=== PATIENT | female | born 1980 | race Caucasian/White ===

== ENCOUNTER → 2020-03-28 13:55 | Outpatient (BNVA) | payer SELFPAY | PROVIDERS: Visit Provider Nurse Practitioner Family | DX: I10 Essential (primary) hypertension (principal); N92.0 Excessive and frequent menstruation with regular cycle; F17.200 Nicotine dependence, unspecified, uncomplicated; N94.6 Dysmenorrhea, unspecified; N92.1 Excessive and frequent menstruation with irregular cycle; J45.30 Mild persistent asthma, uncomplicated; L02.419 Cutaneous abscess of limb, unspecified | CPT/HCPCS: 80053; 80061; 84443; 85025 ==

== ENCOUNTER → 2020-04-01 08:31 | Outpatient (BNVA) | payer SELFPAY | PROVIDERS: Visit Provider Nurse Practitioner Family | DX: R73.09 Other abnormal glucose (principal) | CPT/HCPCS: 83036 ==

== ENCOUNTER → 2020-04-20 10:35 | Outpatient (BNVA) | payer SELFPAY | PROVIDERS: Visit Provider Obstetrics & Gynecology | DX: Z12.4 Encounter for screening for malignant neoplasm of cervix (principal); N93.9 Abnormal uterine and vaginal bleeding, unspecified | CPT/HCPCS: 84443; 85025; 88175 ==

== ENCOUNTER → 2020-05-06 15:51 | Outpatient (BNVA) | payer SELFPAY | PROVIDERS: Visit Provider Obstetrics & Gynecology | DX: N93.9 Abnormal uterine and vaginal bleeding, unspecified (principal); N85.2 Hypertrophy of uterus | CPT/HCPCS: 76830 ==

== ENCOUNTER → 2020-05-11 09:09 | Outpatient (BNVA) | payer SELFPAY | PROVIDERS: Visit Provider Nurse Practitioner Family | DX: M25.511 Pain in right shoulder (principal); R10.9 Unspecified abdominal pain; G89.29 Other chronic pain | CPT/HCPCS: 73030; 80053; 81000; 85025 ==

== ENCOUNTER → 2020-05-12 13:37 | Outpatient (BNVA) | payer SELFPAY | PROVIDERS: Visit Provider Nurse Practitioner Family | DX: R10.813 Right lower quadrant abdominal tenderness (principal) | CPT/HCPCS: 74018 ==

== ENCOUNTER 2020-05-12 15:48 | Outpatient (CLI) | payer SELFPAY ==
--- NOTE | 2020-05-12 15:00 | CT_ITS ---
WS: [id number] CT scan of the abdomen and pelvis with IV contrast. Additional two-dimensional coronal and sagittal r econstruction was performed. 05/12/2020 Clinical Data: right sided abdominal pain, RLQ tenderness Comparison: CT abdomen and pelvis, 06/18/2019. DLP: 1521.[address] scans at [facility] use at least one of these dose optimization techniques: automat ed exposure control; mA and/or kV adjustment per patient size (includes targeted exams where dose is matched to clinical indication); or iterative reconstruction. Findings: The lower lungs show no nodules, masses or effusions. The liver, spleen, adrenal glands and pancreas are normal. There are clips in the gallbladder fossa from a cholecystectomy. The kidneys show equal bilateral contrast excretion with no cyst or masses. No hydronephrosis or mary l calculi are seen. The abdominal aorta is normal in size. No appendicitis or diverticulitis is seen. No abscess, adenopathy, ascites, mass, obstruction or free air is seen. The bladder is unremarkable. No inguinal hernia is seen. The uterus is normal. The bones of the lower thorax, lumbar spine, pelvis, and hips are normal. CT/CT abdomen pelvis w con* [id number] Impression: 1. Negative for acute intra-abdominal or pelvic abnormalities. 2. Cholecystectomy.
[2020-05-12] MEDS: iohexol 300 mg/mL 100 mL Btl IV (16:24)
== END 2020-05-12 15:49 | disposition home or self-care (01) ==
LOC: RAD 15:52
PROVIDERS: PCP Nurse Practitioner Family; Visit Provider Nurse Practitioner Family
DX: R10.9 Unspecified abdominal pain (principal); R10.813 Right lower quadrant abdominal tenderness; D72.829 Elevated white blood cell count, unspecified
CPT/HCPCS: 74177; 85025

== ENCOUNTER 2020-06-02 07:17 | Outpatient (CLI) | payer SELFPAY ==
--- NOTE | 2020-06-02 07:22 | US_ITS ---
WS: [id number] Pelvic ultrasound, 06/02/2020 Clinical Data: Verify position of IUD Comparison: Pelvic ultrasound, 05/06/2020. Findings: The uterus measures 10.71 cm x 6.3 cm x 5.0 cm. The IUD is within the endometrium. The cervical length is cm. The left ovary measures 3.1 cm x 3.2 cm x 1.7 cm with follicular cysts. The right ovary measures 4.4 cm x 3.1 cm x 2.1 cm with follicular cysts. There is no fluid within the cul-de-sac. US/US transvaginal [id number] Impression: The IUD is within the endometrium.
== END 2020-06-02 07:18 | disposition home or self-care (01) ==
LOC: RAD 07:19
PROVIDERS: PCP Nurse Practitioner Family; Visit Provider Obstetrics & Gynecology
DX: Z30.431 Encounter for routine checking of intrauterine contraceptive device (principal)
CPT/HCPCS: 76830

== ENCOUNTER 2020-06-03 11:12 | Outpatient (CLI) | payer SELFPAY ==
--- NOTE | 2020-06-03 12:00 | MM_ITS ---
WS: [id number] BILATERAL DIGITAL SCREENING MAMMOGRAPHY WITH CAD CLINICAL INFORMATION: BI breast lump HISTORY: Screening mammogram. No current complaints. COMPARISON: TECHNIQUE: Bilateral CC and MLO views. FINDINGS: Palpable marker upper outer right breast. No underlying mammographic abnormalities. Ultraso und is pending. The breasts are composed of heterogeneous fibroglandular density tissue, which can limit the detectio n of small underlying mass lesions. Left breast appears unchanged from 2016. ULTRASOUND BREAST BILATERAL TECHNIQUE: Ultrasound bilateral breast focused area of concern. CLINICAL INFORMATION: BI breast lump COMPARISON: None. FINDINGS: Ultrasound right breast at the palpable marker. No evidence of pathologic mass or lesion. No cystic o r solid lesions. Ultrasound left breast at the 3,6,9, and 12:00 positions. Normal underlying soft tissue. Simple appea ring cyst at the 9:00 position measuring 5 mm. No evidence of pathologic mass or lesion. No lesions t o target for biopsy. Recommend return to annual screening mammography. MM/[place] [id number] IMPRESSION: BI-RADS: 2-Benign FOLLOW UP: 1 Year Follow-up Recommend return to annual screening mammography.
--- NOTE | 2020-06-03 12:45 | US_ITS ---
WS: [id number] BILATERAL DIGITAL SCREENING MAMMOGRAPHY WITH CAD CLINICAL INFORMATION: BI breast lump HISTORY: Screening mammogram. No current complaints. COMPARISON: TECHNIQUE: Bilateral CC and MLO views. FINDINGS: Palpable marker upper outer right breast. No underlying mammographic abnormalities. Ultraso und is pending. The breasts are composed of heterogeneous fibroglandular density tissue, which can limit the detectio n of small underlying mass lesions. Left breast appears unchanged from 2016. ULTRASOUND BREAST BILATERAL TECHNIQUE: Ultrasound bilateral breast focused area of concern. CLINICAL INFORMATION: BI breast lump COMPARISON: None. FINDINGS: Ultrasound right breast at the palpable marker. No evidence of pathologic mass or lesion. No cystic o r solid lesions. Ultrasound left breast at the 3,6,9, and 12:00 positions. Normal underlying soft tissue. Simple appea ring cyst at the 9:00 position measuring 5 mm. No evidence of pathologic mass or lesion. No lesions t o target for biopsy. Recommend return to annual screening mammography. US/US breast BI complete [id number] IMPRESSION: BI-RADS: 2-Benign FOLLOW UP: 1 Year Follow-up Recommend return to annual screening mammography.
== END 2020-06-03 11:13 | disposition home or self-care (01) ==
LOC: RADSHAW 11:14
PROVIDERS: PCP Nurse Practitioner Family; Visit Provider Nurse Practitioner Family
DX: N63.11 Unspecified lump in the right breast, upper outer quadrant (principal); N63.25 Unspecified lump in the left breast, overlapping quadrants
CPT/HCPCS: 76641; 77066

== ENCOUNTER → 2020-06-24 11:24 | Outpatient (BNVA) | payer OTHER, SELFPAY | PROVIDERS: PCP Nurse Practitioner Family; Visit Provider Nurse Practitioner Family | DX: Z11.59 Encounter for screening for other viral diseases (principal); J45.30 Mild persistent asthma, uncomplicated | CPT/HCPCS: 87635 ==

== ENCOUNTER 2020-07-10 13:58 | Emergency (ER) | payer SELFPAY ==
[2020-07-10] VITALS (8 sets, daily range): BP systolic 113–158; BP diastolic 78–85; PULSE 90–106; RESP 16–22; TEMP 36.8; O2SAT 93–96; BMI 41.1
[2020-07-10] MEDS: ipratropium-albuterol 3 mL Neb INHALATION ×2 (14:43→17:12)
--- NOTE | 2020-07-10 15:12 | ED_ITS ---
HPI - Asthma General: Chief Complaint: Asthma Stated Complaint: ASTHMA EXACERBATION Time Seen by Provider: 07/10/20 14:20 History of Present Illness: HPI Narrative: This patient is a 39-year-old female who presents with asthma. She has a history of asthma and it became worse this morning. She has been using her inhalers at home without relief. She comes into the ER because of shortness of breath. She denies fever. She has had some cough. She told me that she had a Covid test a couple of weeks ago for work. She told me that she had not had the exposure but when I reviewed the records she did have an exposure to a coworker who tested positive. That exposure was over 3 weeks ago. complaint: asthma attack , shortness of breath and wheezing Onset (ago): hour(s) (6) Severity: severe Context: none known Associated symptoms: Reports no associated symptoms and non-productive cough; Deny chest pain, fever(s) or productive cough Treatments Prior to Arrival: inhaled steroid Review of Systems General: Reports: 10 or more systems reviewed and unremarkable except in HPI and below Const: Denies: fever(s), chills, fatigue or malaise Eyes: Denies: change in vision ENMT: Denies: odynophagia Card: Denies: chest pain or swelling of feet/ankles Resp: Reports: dyspnea, non-productive cough and wheezing; Denies: productive cough GI: Denies: abdominal pain, nausea or vomiting : Denies: flank pain or difficulty voiding Musc: Denies: neck pain or back pain Skin/Breast: Denies: rash Neuro: Denies: headache(s), numbness in extremities or weakness in extremities [place]/Lymph: Denies: easy bruising or easy bleeding PFSH ED PFSH: Medical History Essential hypertension Diagnosed in February 2020 being managed by PMD. 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 PCP: KELLY Cueto Surgical History Status post cholecystectomy 1999--laparoscopic procedure Status post tubal ligation 2007--laparoscopic procedure Family History Grandmother Breast cancer maternal, age at diagnosis unknown Denies family history of Colon cancer Ovarian cancer Diabetes Heart disease Hyperlipidemia Anesthesia complication Bleeding disorder Hypertension Uterine cancer Thyroid condition Stroke Social History Smoking and tobacco status: current every day smoker cigarettes Packs smoked per day: 0.5 Alcohol intake: never Lives independently: Yes Housing: House Marital status: Single Current occupational status: employed History of recent travel: No Physical Exam Const: COMMON NORMALS: patient oriented x3, no limitations and alert GENERAL APPEARANCE: cooperative HENMT: HEAD & SCALP: normal to inspection FACE & SINUS: normal facial exam Eye: GENERAL EYE: appearance normal, both eyes and all related structures Neck/C-Spine: COMMON NORMALS: supple, no meningeal signs and no JVD Chest: COMMONS NORMALS: normal inspection of the chest Resp: EFFORT & INSPECTION: Yes tachypneic, Yes labored and Yes uses accessory muscles AUSCULTATION: wheezes Cardio: COMMON NORMALS: no JVD, regular rate, regular rhythm and No murmurs present (Cardio) RATE: regular rate RHYTHM: regular rhythm GI: COMMON NORMALS: Normal to inspection, nondistended, normoactive bowel so unds present, Soft to palpation and non-tender INSPECTION: Yes normal to inspection AUSCULTATION: Yes normoactive bowel sounds PALPATION: Yes Soft to palpation Back/Pelvis: COMMON NORMALS: thoracic and lumbar spine normal to inspection Extremity: COMMON NORMALS: normal to inspection Neuro: COMMON NORMALS: patient oriented x3, moves all extremities, no focal motor deficits and no sensory deficits noted SENSORIUM/ORIENTATION: Yes alert MENINGEAL SIGNS: Yes no meningeal signs Psych: COMMON NORMALS: mental status grossly normal, cooperative and normal affect Skin: COMMON NORMALS: no rashes or lesions noted and turgor normal GENERAL SKIN EXAM: no rashes or lesions noted and turgor normal Course ED course: Patient improved with nebulizers. She had been on steroids and I put her back on some steroids. I do not think she necessarily needs another Covid test at this point. Nothing about her presentation really sound like Covid and she just had a negative test. She denied any recent exposures. Vital Signs: Vital signs: Vital Signs Temperature 98.2 F 07/10/20 14:11 Pulse Rate 101 H 07/10/20 18:10 Respiratory Rate 18 07/10/20 18:10 Blood Pressure 134/78 07/10/20 18:10 Pulse Oximetry 95 07/10/20 18:10 MDM - Asthma Lab Data: Labs: Lab Results 07/10/20 07/10/20 Range/Units 14:30 14:30 WBC 12.4 H (4.0-10.0) 10^3/ uL RBC 4.61 (4.1-5.3) 10^6/u L Hgb 13.2 (11.5-15.3) g/dL Hct 40.0 (37.0-47.0) % MCV 86.8 (81-99) fL MCH 28.6 (28.0-34.0) pg MCHC 33.0 (30.0-36.0) g/dL RDW 14.7 (12.1-15.1) % Plt Count 227 (130-400) 10^3/c mm MPV 11.6 H (7.4-10.4) fL Neut % (Auto) 72.2 % Lymph % (Auto) 17.2 % [place] % (Auto) 6.9 % Eos % (Auto) 2.8 % Baso % (Auto) 0.4 % Neut # (Auto) 8.94 H (1.8-7.7) 10^3/u L Lymph # (Auto) 2.1 (0.8-4.8) 10^3/u L [place] # (Auto) 0.9 (0.2-0.9) 10^3/u L Eos # (Auto) 0.3 (0.0-0.8) 10^3/u L Baso # (Auto) 0.1 (0.0-0.1) 10^3/u L Nucleated RBC % (a uto) 0 % Nucleated RBCs # 0.0 /100WBC Sodium 138 (136-145) mmol/L Potassium 3.8 (3.5-5.1) mmol/L Chloride 104 (98-107) mmol/L Carbon Dioxide 23 (22-29) mmol/L Anion Gap 14.8 (5-19) BUN 6 (6-20) mg/dL Creatinine 0.6 (0.5-0.9) mg/dL GFR Calculation 111.3 (90-130) mL/min Glucose 111 (65-115) mg/dL Calculated Osmolal ity 284 L (285-295) mOsm/k g Calcium 9.0 (8.5-10.5) mg/dL Total Bilirubin 0.3 (0.15-1.2) mg/dL AST 25 (0-32) U/L ALT 36 H (0-33) U/L Alkaline Phosphata se 84 (35-105) IU/L Total Protein 7.5 (6.6-8.7) g/dL Albumin 4.0 (3.5-5.2) g/dL Globulin 3.5 (1.3-4.6) g/dL Discharge Plan Discharge Patient Disposition: Home Clinical Impression: Asthma with acute exacerbation Qualifiers: Asthma severity: moderate Asthma persistence: persistent Qualified Code(s): J45.41 - Moderate persistent asthma with (acute) exacerbation Condition: Stable Prescriptions: New ipratropium bromide 0.02 % solution 2.5 ml INHALATION Q4H PRN (Reason: shortness of breath or wheezing) Qty: 62.5 RF: 0 prednisone 10 mg tablet See Rx Instructions .ROUTE .COMPLEX Qty: 35 RF: 0 No Action Mirena 20 mcg/24 hours (5 yrs) 52 mg intrauterine device 1 device INTRAUTERI .every 5 years Qty: 1 RF: 0 albuterol sulfate 2.5 mg /3 mL (0.083 %) solution for nebulization 2.5 mg INHALATION Q4H PRN (Reason: shortness of breath or wheezing) 30 Days Qty: 180 RF: 11 albuterol sulfate [ProAir HFA] 90 mcg/actuation HFA aerosol inhaler 2 puff INHALATION QID PRN (Reason: shortness of breath or wheezing) 30 Days Qty: 6.7 RF: 11 fluticasone propion-salmeterol [Advair Diskus] 250-50 mcg/dose blister with device 1 inh INHALATION BID 30 Days Qty: 60 RF: 11 lisinopril 10 mg tablet 10 mg PO DAILY 30 Days Qty: 30 RF: 5 doxycycline hyclate 100 mg capsule 100 mg PO BID 7 Days Qty: 14 RF: 0 ibuprofen 200 mg Tablet 600 mg PO PRN RF: 0 Vitamin C 1 tab PO DAILY RF: 0 Discharge Orders: Discharge Order (Routine); Ordered 07/10/20 Ordered By: Ivelisse Bynum Referrals: Cori Brooke FNP-C [Primary Care Provider] - Discharge Diet: Usual diet Discharge Activity: Resume usual activity Patient Instructions: Moderate and Severe Persistent Asthma (ED) Activity Restrictions/Additional Instructions: Return to the emergency department if worsening shortness of breath, worsening c hest pain, fever. Take the medications as prescribed as well as your normal medications. Follow-up with your primary care provider in about a week to let them know how you are doing. 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
--- NOTE | 2020-07-10 15:19 | XRR_ITS ---
PROCEDURE INFORMATION: Exam: XR Chest, 1 View Exam date and time: 07/10/2020 3:20 PM Age: 39 years old Clinical indication: Wheezing TECHNIQUE: Imaging protocol: XR of the chest Views: 1 view. COMPARISON: CR Chest 2 views* [id number] 10/19/2018 5:20 PM FINDINGS: Lungs: Unremarkable. No consolidation. Pleural space: Unremarkable. No pleural effusion. No pneumothorax. Heart/Mediastinum: Unremarkable. No cardiomegaly. Bones/joints: Unremarkable. XR/XR chest 1V portable [id number] IMPRESSION: No acute findings.
[2020-07-10 15:46] LABS: Basophils # 0.1 10^3/uL (0.0-0.1); Basophils % 0.4 %; Eosinophils # 0.3 10^3/uL (0.0-0.8); Eosinophils % 2.8 %; Hemoglobin 13.2 g/dL (11.5-15.3); Lymphocytes # 2.1 10^3/uL (0.8-4.8); Lymphocytes % 17.2 %; Mean Corpuscular Hemoglobin 28.6 pg (28.0-34.0); Mean Corpuscular Volume 86.8 fL (81-99); Mean Platelet Volume 11.6 fL (7.4-10.4); Monocytes # 0.9 10^3/uL (0.2-0.9); Monocytes % 6.9 %; Neutrophils # 8.94 10^3/uL (1.8-7.7); Neutrophils % 72.2 %; Nucleated Red Blood Cells % 0 %; Platelet Count 227 10^3/cmm (130-400); Red Blood Count 4.61 10^6/uL (4.1-5.3); Red Cell Distribution Width 14.7 % (12.1-15.1); White Blood Count 12.4 10^3/uL (4.0-10.0)
[2020-07-10 16:02] LABS: Alanine Aminotransferase 36 U/L (0-33); Alkaline Phosphatase 84 IU/L (35-105); Anion Gap 14.8 (5-19); Aspartate Amino Transferase 25 U/L (0-32); Blood Urea Nitrogen 6 mg/dL (6-20); Carbon Dioxide 23 mmol/L (22-29); Chloride 104 mmol/L (98-107); Creatinine Clr Calc Pharmacy 151.7574; Globulin 3.5 g/dL (1.3-4.6); Glomerular Filtration Rate 111.3 mL/min (90-130); Glucose 111 mg/dL (65-115); Osmolality Calculated 284 mOsm/kg (285-295); Potassium 3.8 mmol/L (3.5-5.1); Sodium 138 mmol/L (136-145); Total Bilirubin 0.3 mg/dL (0.15-1.2); Total Protein 7.5 g/dL (6.6-8.7)
--- NOTE | 2020-07-10 16:20 | ECG_ITS ---
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
[2020-07-10] MEDS: ketorolac 30 mg/mL INJ 15 MG IVP (16:39)
[2020-07-10] MEDS: predniSONE 20 mg Tablet 60 MG PO (18:17)
== END 2020-07-10 18:18 | disposition home or self-care (01) ==
PROVIDERS: Emergency Provider Emergency Medicine; PCP Nurse Practitioner Family
DX: J45.41 Moderate persistent asthma with (acute) exacerbation (principal); I10 Essential (primary) hypertension; F17.210 Nicotine dependence, cigarettes, uncomplicated
CPT/HCPCS: 12345; 71045; 80053; 85025; 93005; 94640; 96374; 96375; 99283; 99284; J1885; J2930; J7512

== ENCOUNTER 2020-07-13 10:08 | Emergency (ER) | payer SELFPAY ==
[2020-07-13 10:10] VITALS: BP 158/97; PULSE 85; RESP 18; TEMP 36.8; O2SAT 95; BMI 41.0
[2020-07-13 10:31] VITALS: O2SAT 95
--- NOTE | 2020-07-13 10:33 | XR_ITS ---
WS: [id number] XR chest 1V portable [id number] REASON FOR EXAM: SOB, cough, COVID r/o FINDINGS: Compared to the previous examination of 07/10/2020, there are patchy lung opacities in both lung base s not present on the previous study. These abnormalities likely represent a combination of atelectasi s and acute pneumonitis. No other significant interval change noted. XR/XR chest 1V portable [id number] IMPRESSION: Interval lung base changes as described above which could indicate acute pneumo nitis.
--- NOTE | 2020-07-13 10:33 | W.ED.SOB ---
HPI - SOB/Dyspnea General: Chief Complaint: Shortness of Breath/Dyspnea Stated Complaint: BODY ACHES,COUGH,HIGH BP,NOSE BLEEDS Time Seen by Provider: 07/13/20 10:17 History of Present Illness: HPI Narrative: This patient is a 39-year-old female who presents today with multiple complaints. She complains of shortness of breath, chest tightness, blood pressure that goes up and down, nosebleeds and body aches. She denies fever. She denies exposure to Covid. She had a negative Covid test on June 24 after exposure at work. She was seen in the ED on July 10 with shortness of breath and an asthma attack. She was at that time denying fever or Covid exposures. She had been treated as an outpatient with prednisone. She had been on a taper which she finished a few days before coming in. She was using albuterol and Advair at home. She was given another taper of prednisone, ipratropium for her nebulizer. Labs and x-ray on that visit were normal. Today she is complaining of the same shortness of breath. She also has body aches but no fever. She has had couple episodes of nosebleeds and says that her blood pressure and headaches come with a nosebleed. She is able to stop it easily at home. She continues to smoke. She is also complaining of swelling in her hands and legs. MD elicited complaint: shortness of breath and cough Pertinent past history: COPD and asthma Onset (ago): week(s) Timing: constant Severity: moderate Exacerbating factors: lying flat (She says that sometimes at night her pulse ox will get down to 85%. It gets better after treatment in sitting up. During the day it is mostly 95 to 97%) Known history of: COPD and asthma Associated symptoms: Reports orthopnea; Deny abdominal pain, chest pain, fever(s), nausea or vomiting Review of Systems General: Reports: 10 or more systems reviewed and unremarkable except in HPI and below Const: Denies: fever(s), chills, fatigue or malaise Eyes: Denies: change in vision ENMT: Denies: odynophagia Card: Reports: swelling of feet/ankles and orthopnea; Denies: chest pain Resp: Reports: dyspnea, non-productive cough and wheezing; Denies: productive cough GI: Denies: abdominal pain, nausea or vomiting : Denies: flank pain or difficulty voiding Musc: Denies: neck pain or back pain Skin/Breast: Denies: rash Neuro: Denies: headache(s), numbness in extremities or weakness in extremities Farhat/Lymph: Denies: easy bruising or easy bleeding PFS ED PFSH: Medical History Essential hypertension Diagnosed in February 2020 being managed by PMD. 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 PCP: KELLY Cueto Surgical History Status post cholecystectomy 1999--laparoscopic procedure Status post tubal ligation 2007--laparoscopic procedure Family History Grandmother Breast cancer maternal, age at diagnosis unknown Denies family history of Colon cancer Ovarian cancer Diabetes Heart disease Hyperlipidemia Anesthesia complication Bleeding disorder Hypertension Uterine cancer Thyroid condition Stroke Social History Smoking and tobacco status: current every day smoker cigarettes Packs smoked per day: 0.5 Alcohol intake: never Lives independently: Yes Housing: House Marital status: Single Current occupational status: employed History of recent travel: No Physical Exam Const: COMMON NORMALS: no acute distress, patient oriented x3, no limitations and alert GENERAL APPEARANCE: cooperative and comfortable HENMT: HEAD & SCALP: normal to inspection FACE & SINUS: normal facial exam Eye: GENERAL EYE: appearance normal, both eyes and all related structures Neck/C-Spine: COMMON NORMALS: supple, no meningeal signs and no JVD Chest: COMMONS NORMALS: normal inspection of the chest Resp: COMMON NORMALS: normal respiratory effort and No use of accessory muscles AUSCULTATION: wheezes (Moderate bilateral) Cardio: COMMON NORMALS: no JVD, regular rate, regular rhythm and No murmurs present (Cardio) RATE: regular rate RHYTHM: regular rhythm GI: COMMON NORMALS: Normal to inspection, nondistended, normoactive bowel sounds present, Soft to palpation and non-tender INSPECTION: Yes normal to inspection AUSCULTATION: Yes normoactive bowel sounds PALPATION: Yes Soft to palpation Back/Pelvis: COMMON NORMALS: thoracic and lumbar spine normal to inspection Extremity: COMMON NORMALS: normal to inspection Neuro: COMMON NORMALS: patient oriented x3, moves all extremities, no focal motor deficits and no sensory deficits noted SENSORIUM/ORIENTATION: Yes alert MENINGEAL SIGNS: Yes no meningeal signs Psych: COMMON NORMALS: mental status grossly normal, cooperative and normal affect Skin: COMMON NORMALS: no rashes or lesions noted and turgor normal GENERAL SKIN EXAM: no rashes or lesions noted and turgor normal Course ED course: This patient presents for reevaluation of shortness of breath. She was seen a few days ago with the same symptoms. She was treated for an asthma exacerbation. She had been on prednisone was put back on another taper of prednisone. One of her complaints today is swelling which is most likely related to that. She also has multiple other complaints including nosebleeds and she seems quite anxious about her blood pressure. Work-up today revealed no new significant findings. Initially on her chest x-ray I thought it looked like she had a developing infiltrate so CT was ordered. The CT failed to demonstrate that. Covid test was negative today. She initially had some wheezing throughout but this improved with magnesium. At the time of discharge her lungs were clear with no wheezing. She has inhalers and nebulizers at home. I suggested that she continue the prednisone. I encouraged her to follow-up with her primary care doctor. Vital Signs: Vital signs: Vital Signs Temperature 98.2 F 07/13/20 10:10 Pulse Rate 82 07/13/20 15:32 Respiratory Rate 16 07/13/20 15:32 Blood Pressure 131/71 07/13/20 15:32 Pulse Oximetry 92 07/13/20 15:32 MDM - SOB/Dyspnea Lab Data: Labs: Lab Results 07/13/20 07/13/20 07/13/20 Range/Units 11:22 11:22 11: WBC 16.1 H (4.0-10.0) 10^3/ uL RBC 4.56 (4.1-5.3) 10^6/u L Hgb 12.9 (11.5-15.3) g/dL Hct 39.6 (37.0-47.0) % MCV 86.8 (81-99) fL MCH 28.3 (28.0-34.0) pg MCHC 32.6 (30.0-36.0) g/dL RDW 15.3 H (12.1-15.1) % Plt Count 256 (130-400) 10^3/c mm MPV 10.9 H (7.4-10.4) fL Neut % (Auto) 83.0 % Lymph % (Auto) 12.8 % Benzie % (Auto) 2.9 % Eos % (Auto) 0.3 % Baso % (Auto) 0.2 % Neut # (Auto) 13.32 H (1.8-7.7) 10^3/u L Lymph # (Auto) 2.1 (0.8-4.8) 10^3/u L Benzie # (Auto) 0.5 (0.2-0.9) 10^3/u L Eos # (Auto) 0.1 (0.0-0.8) 10^3/u L Baso # (Auto) 0.0 (0.0-0.1) 10^3/u L Nucleated RBC % (a uto) 0 % Nucleated RBCs # 0.0 /100WBC D-Dimer 0.82 H (0-0.59) ug/mIFE U Sodium 139 (136-145) mmol/L Potassium 4.0 (3.5-5.1) mmol/L Chloride 106 (98-107) mmol/L Carbon Dioxide 22 (22-29) mmol/L Anion Gap 15.0 (5-19) BUN 7 (6-20) mg/dL Creatinine 0.9 (0.5-0.9) mg/dL GFR Calculation 69.7 L (90-130) mL/min Glucose 116 H (65-115) mg/dL Calculated Osmolal ity 287 (285-295) mOsm/k g Lactic Acid (0.5-2.2) mmol/L Calcium 9.0 (8.5-10.5) mg/dL Total Bilirubin 0.2 (0.15-1.2) mg/dL AST 34 H (0-32) U/L ALT 45 H (0-33) U/L Alkaline Phosphata se 91 (35-105) IU/L NT-Pro-B Natriuret Pep 168 H (0-125) pg/mL Total Protein 7.2 (6.6-8.7) g/dL Albumin 4.0 (3.5-5.2) g/dL Globulin 3.2 (1.3-4.6) g/dL Procalcitonin 0.04 (0-0.5) ng/mL Influenza Type A A g (Negative) Influenza Type B A g (Negative) SARS-CoV-2 Ag (Rap id) (Negative) 07/13/20 07/13/20 07/13/20 Range/Units 11:22 11:24 11:24 WBC (4.0-10.0) 10^3/ uL RBC (4.1-5.3) 10^6/u L Hgb (11.5-15.3) g/dL Hct (37.0-47.0) % MCV (81-99) fL MCH (28.0-34.0) pg MCHC (30.0-36.0) g/dL RDW (12.1-15.1) % Plt Count (130-400) 10^3/c mm MPV (7.4-10.4) fL Neut % (Auto) % Lymph % (Auto) % Benzie % (Auto) % Eos % (Auto) % Baso % (Auto) % Neut # (Auto) (1.8-7.7) 10^3/u L Lymph # (Auto) (0.8-4.8) 10^3/u L Benzie # (Auto) (0.2-0.9) 10^3/u L Eos # (Auto) (0.0-0.8) 10^3/u L Baso # (Auto) (0.0-0.1) 10^3/u L Nucleated RBC % (a uto) % Nucleated RBCs # /100WBC D-Dimer (0-0.59) ug/mIFE U Sodium (136-145) mmol/L Potassium (3.5-5.1) mmol/L Chloride (98-107) mmol/L Carbon Dioxide (22-29) mmol/L Anion Gap (5-19) BUN (6-20) mg/dL Creatinine (0.5-0.9) mg/dL GFR Calculation (90-130) mL/min Glucose (65-115) mg/dL Calculated Osmolal ity (285-295) mOsm/k g Lactic Acid 2.1 (0.5-2.2) mmol/L Calcium (8.5-10.5) mg/dL Total Bilirubin (0.15-1.2) mg/dL AST (0-32) U/L ALT (0-33) U/L Alkaline Phosphata se (35-105) IU/L NT-Pro-B Natriuret Pep (0-125) pg/mL Total Protein (6.6-8.7) g/dL Albumin (3.5-5.2) g/dL Globulin (1.3-4.6) g/dL Procalcitonin (0-0.5) ng/mL Influenza Type A A g Negative (Negative) Influenza Type B A g Negative (Negative) SARS-CoV-2 Ag (Rap id) Negative (Negative) Discharge Plan Discharge Patient Disposition: Home Clinical Impression: Bronchitis Mild persistent asthma Qualifiers: Asthma complication type: unspecified Qualified Code(s): J45.30 - Mild persistent asthma, uncomplicated Condition: Stable Prescriptions: New doxycycline hyclate 100 mg capsule 100 mg PO BID 7 Days Qty: 14 RF: 0 No Action Mirena 20 mcg/24 hours (5 yrs) 52 mg intrauterine device 1 device INTRAUTERI .every 5 years Qty: 1 RF: 0 albuterol sulfate 2.5 mg /3 mL (0.083 %) solution for nebulization 2.5 mg INHALATION Q4H PRN (Reason: shortness of breath or wheezing) 30 Days Qty: 180 RF: 11 albuterol sulfate [ProAir HFA] 90 mcg/actuation HFA aerosol inhaler 2 puff INHALATION QID PRN (Reason: shortness of breath or wheezing) 30 Days Qty: 6.7 RF: 11 fluticasone propion-salmeterol [Advair Diskus] 250-50 mcg/dose blister with device 1 inh INHALATION BID 30 Days Qty: 60 RF: 11 lisinopril 10 mg tablet 10 mg PO DAILY 30 Days Qty: 30 RF: 5 ibuprofen 200 mg Tablet 600 mg PO PRN RF: 0 Vitamin C 1 tab PO DAILY RF: 0 ipratropium bromide 0.02 % solution 2.5 ml INHALATION Q4H PRN (Reason: shortness of breath or wheezing) Qty: 62.5 RF: 0 prednisone 10 mg tablet See Rx Instructions .ROUTE .COMPLEX Qty: 35 RF: 0 Discharge Orders: Discharge Order (Routine); Ordered 07/13/20 Ordered By: Ivelisse Bynum Referrals: Cori Brooke FNP-C [Primary Care Provider] - Discharge Diet: Advance as tolerated Discharge Activity: Resume usual activity Patient Instructions: Acute Bronchitis (ED) Activity Restrictions/Additional Instructions: Continue to use your inhalers at home. Continue the prednisone and just be aware that it may cause some swelling. Make sure to carefully limit your salt intake while on the prednisone as this can make the swelling worse. Take the antibiotic as prescribed. Follow-up with your regular doctor for checkup within the next week. Return to the ER if worsening. Discharge Date/Time: 07/13/20 15:34 Coding Level of Care Code ED Automation Application Engineer for Machelle Larios Exam Comprehensive
[2020-07-13 11:32] VITALS: BP 151/69; PULSE 86; O2SAT 93
[2020-07-13 11:40] LABS: Basophils % 0.2 %; Eosinophils # 0.1 10^3/uL (0.0-0.8); Eosinophils % 0.3 %; Hematocrit 39.6 % (37.0-47.0); Hemoglobin 12.9 g/dL (11.5-15.3); Lymphocytes # 2.1 10^3/uL (0.8-4.8); Lymphocytes % 12.8 %; Mean Corpuscular HGB Conc 32.6 g/dL (30.0-36.0); Mean Corpuscular Hemoglobin 28.3 pg (28.0-34.0); Mean Corpuscular Volume 86.8 fL (81-99); Mean Platelet Volume 10.9 fL (7.4-10.4); Monocytes # 0.5 10^3/uL (0.2-0.9); Monocytes % 2.9 %; Neutrophils # 13.32 10^3/uL (1.8-7.7); Nucleated Red Blood Cells % 0 %; Platelet Count 256 10^3/cmm (130-400); Red Blood Count 4.56 10^6/uL (4.1-5.3); Red Cell Distribution Width 15.3 % (12.1-15.1); White Blood Count 16.1 10^3/uL (4.0-10.0)
[2020-07-13] MEDS: cefTRIAXone 1,000 MG in sodium chloride 0.9% (plus) 50 ML 100 MG IV (12:00)
[2020-07-13 12:01] LABS: D Dimer 0.82 ug/mIFEU (0-0.59); Lactic Sepsis W/Reflex 2.1 mmol/L (0.5-2.2)
[2020-07-13 12:11] LABS: Alanine Aminotransferase 45 U/L (0-33); Alkaline Phosphatase 91 IU/L (35-105); Aspartate Amino Transferase 34 U/L (0-32); Blood Urea Nitrogen 7 mg/dL (6-20); Carbon Dioxide 22 mmol/L (22-29); Chloride 106 mmol/L (98-107); Globulin 3.2 g/dL (1.3-4.6); Glomerular Filtration Rate 69.7 mL/min (90-130); Glucose 116 mg/dL (65-115); NT Pro B Type Natriuretic Pept 168 pg/mL (0-125); Osmolality Calculated 287 mOsm/kg (285-295); Sodium 139 mmol/L (136-145); Total Bilirubin 0.2 mg/dL (0.15-1.2); Total Protein 7.2 g/dL (6.6-8.7)
[2020-07-13] MEDS: azithromycin 500 MG in sodium chloride 0.9% 250 ML 250 MG IV (12:20)
[2020-07-13 12:22] LABS: Influenza A by IFA Negative (Negative); Influenza B by IFA Negative (Negative); SARS Covid-2 Antigen Negative (Negative)
--- NOTE | 2020-07-13 12:44 | CT_ITS ---
WS: [id number] CTA OF THE CHEST WITH PULMONARY EMBOLISM PROTOCOL TECHNIQUE: High-resolution contrast enhanced CTA of the chest with coronal and sagittal reformatted i mages with pulmonary embolism protocol. MIP images are also reviewed. CLINICAL INFORMATION: dyspnea COMPARISON: CTA chest 09/2017 DLP: 1798.[address] scans at [facility] use at least one of these dose optimization techniques: automat ed exposure control; mA and/or kV adjustment per patient size (includes targeted exams where dose is matched to clinical indication); or iterative reconstruction. FINDINGS: Proximal main pulmonary arteries are normal. Segmental and subsegmental pulmonary arteries are normal . No evidence of pulmonary embolus. Mild chronic emphysematous changes. Subsegmental atelectasis in b oth upper lobes and right lower lobe. A few reactive mediastinal lymph nodes. No axillary lymphadenop athy. Adrenal glands are normal. Cholecystectomy clips. CT/CT angio chest PE protcl [id number] IMPRESSION: 1. No evidence of pulmonary embolus. 2. Mild chronic emphysematous changes. No acute pulmonary infiltrates. 3. Subsegmental atelectasis in both upper lobes anteriorly and right lower lob e. 4. Cholecystectomy clips. Attempted notification Ivelisse Bynum MD at 07/13/2020 1:22 PM.
--- NOTE | 2020-07-13 12:54 | PC.NURSE ---
pt to ct by stretcher with tech
[2020-07-13] MEDS: iohexol 350 mg/mL 100 mL Btl IV ×2 (13:00→13:05)
[2020-07-13 13:05] LABS: Procalcitonin 0.04 ng/mL (0-0.5)
[2020-07-13 13:21] LABS: Reflex Lactate Order REFLEX LACTIC ORDERD
[2020-07-13 13:39] VITALS: BP 124/84; PULSE 84; O2SAT 95
[2020-07-13] MEDS: magnesium sulfate premix 2 GM/50 ML PIGGYBACK IV (14:04)
[2020-07-13 14:05] VITALS: BP 114/63; PULSE 79; O2SAT 94
[2020-07-13 15:32] VITALS: BP 131/71; PULSE 82; RESP 16; O2SAT 92
== END 2020-07-13 15:34 | disposition home or self-care (01) ==
PROVIDERS: Emergency Provider Emergency Medicine; PCP Nurse Practitioner Family
DX: J45.30 Mild persistent asthma, uncomplicated (principal); J40 Bronchitis, not specified as acute or chronic; I10 Essential (primary) hypertension; F17.210 Nicotine dependence, cigarettes, uncomplicated
CPT/HCPCS: 12345; 71045; 71275; 80053; 83605; 83880; 84145; 85025; 85378; 87040; 87426; 87804; 96365; 96367; 99284; J0456; J0696; J3475; J7050; Q9967

== ENCOUNTER → 2020-07-19 10:07 | Outpatient (BNVA) | payer SELFPAY | PROVIDERS: PCP Nurse Practitioner Family; Visit Provider Nurse Practitioner Family | DX: R30.0 Dysuria (principal); J45.30 Mild persistent asthma, uncomplicated; A60.00 Herpesviral infection of urogenital system, unspecified; N93.9 Abnormal uterine and vaginal bleeding, unspecified | CPT/HCPCS: 81000 ==

== ENCOUNTER → 2020-12-13 15:09 | Outpatient (BNVA) | payer SELFPAY | PROVIDERS: PCP Nurse Practitioner Family; Visit Provider Nurse Practitioner Family | DX: M25.512 Pain in left shoulder (principal); G89.29 Other chronic pain | CPT/HCPCS: 73030 ==

== ENCOUNTER 2021-01-09 18:31 | Emergency (ER) | payer SELFPAY ==
[2021-01-09 18:37] VITALS: BP 138/93; PULSE 95; RESP 17; TEMP 36.6; O2SAT 96; BMI 40.3
--- NOTE | 2021-01-09 19:47 | XRR_ITS ---
PROCEDURE INFORMATION: Exam: XR Cervical Spine Exam date and time: 01/09/2021 7:50 PM Age: 40 years old Clinical indication: Left arm and scapular; Patient HX: C/O pain in chest and left arm and left scapula TECHNIQUE: Imaging protocol: XR of the cervical spine. Views: 2 or 3 views. COMPARISON: CT Cervical Spine wo* [id number] 12/06/2017 3:48 PM FINDINGS: Bones/joints: Vertebral body height is maintained. No subluxation. Normal bone mineralization. No acute fracture. Soft tissues: No prevertebral soft tissue swelling. No radiopaque foreign body. XR/XR cervical spine 3V* [id number] IMPRESSION: No acute fracture of the cervical spine. CT scan would be recommended if there is continuing clinical concern for fracture.
--- NOTE | 2021-01-09 19:47 | W.ED.CHESTPA ---
HPI - Chest Pain General: Chief Complaint: Chest Pain Stated Complaint: chest pain, back pain Time Seen by Provider: 01/09/21 19:41 Source: patient, family and RN notes reviewed Limitations: no limitations History of Present Illness: HPI narrative: This patient is a 40-year-old female who presents to the emergency department complaint of left shoulder pain neck pain and numbness to her hand. Patient states this has been going on for over a year and has been seen by her PCP multiple times. Patient states she woke up today it is hurting a bit more and complaint of numbness to her hand. Patient states that she had x-rays of her shoulder was negative for any acute findings. Patient denies any cardiac chest pain. Onset (ago): day(s) (5) Severity: moderate Associated symptoms: Deny abdominal pain, dyspnea, fever(s), nausea, palpitations or vomiting Review of Systems General: Reports: 10 or more systems reviewed and unremarkable except in HPI and below Const: Denies: fever(s), chills, body aches or fatigue Eyes: Denies: change in vision or blurry vision ENMT: Denies: throat pain, hoarseness or mouth pain Card: Denies: chest pain, palpitations, irregular heart rhythm, edema, swelling of feet/ankles or lightheadedness Resp: Denies: dyspnea, productive cough, non-productive cough, wheezing or pain on inspiration GI: Denies: abdominal pain, nausea or vomiting : Denies: flank pain, difficulty voiding, dysuria, urinary frequency, urinary urgency or urinary hesitancy Musc: Denies: neck pain, back pain, extremity pain, extremity swelling, joint pain, joint swelling, joint redness, joint warmth or limited range of motion Skin/Breast: Denies: rash, pruritus, erythema or skin tenderness Neuro: Denies: headache(s), numbness in extremities or weakness in extremities Psych: Denies: anxiety or depression PFSH ED PFSH: Medical History (Updated 01/09/21 @ 20:27 by Sina Negro MD) Essential hypertension Diagnosed in February 2020 being managed by PMD. 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 PCP: KELLY Cueto Surgical History Status post cholecystectomy 1999--laparoscopic procedure Status post tubal ligation 2007--laparoscopic procedure Family History Grandmother Breast cancer maternal, age at diagnosis unknown Denies family history of Colon cancer Ovarian cancer Diabetes Heart disease Hyperlipidemia Anesthesia complication Bleeding disorder Hypertension Uterine cancer Thyroid condition Stroke Social History Smoking and tobacco status: current every day smoker cigarettes Packs smoked per day: 0.5 Alcohol intake: never Lives independently: Yes Housing: House Marital status: Single Current occupational status: employed History of recent travel: No Physical Exam Const: COMMON NORMALS: no acute distress, average body habitus, patient oriented x3, no limitations, healthy appearing, alert and well nourished HENMT: COMMON NORMALS: normocephalic, atraumatic, hearing grossly normal bilaterally, external ears normal, EAC's normal, TM's normal bilaterally, Normal external nose present, Normal nasal mucous membranes and turbinates present, moist oral mucous membranes, oropharynx normal, dentition normal and gingiva normal HEAD & SCALP: normocephalic and atraumatic NOSE: Normal external nose present and Normal nasal mucous membranes and turbinates present EXTERNAL EAR: Yes external ears normal EXTERNAL AUDITORY CANAL: EAC's normal TYMPANIC MEMBRANE: TM's normal bilaterally Neck/C-Spine: COMMON NORMALS: full ROM, no lymphadenopathy, supple, no meningeal signs, no JVD, Thyroid normal and No carotid bruits THYROID: Thyroid normal NECK IMAGES: 1. Significant pain with palpation of this area Chest: COMMONS NORMALS: normal inspection of the chest, normal palpation of entire chest wall, normal inspection of the breasts and normal palpation of the breasts Breast/axilla inspection: Yes normal inspection of the breasts BREAST/AXILLA PALPATION: Yes normal palpation of the breasts Resp: COMMON NORMALS: normal respiratory effort, No retractions, No use of accessory muscles, clear to auscultation bilaterally and percussion normal AUSCULTATION: clear to auscultation bilaterally PERCUSSION: percussion normal Cardio: COMMON NORMALS: no JVD, regular rate, regular rhythm, S1 normal heart sound present, S2 normal heart sound present, No gallops present (Cardio), No clicks present (Cardio), No murmurs present (Cardio), No rub (Cardio) and Peripheral pulses 2+ throughout RATE: regular rate RHYTHM: regular rhythm HEART SOUNDS: S1 normal heart sound present and S2 normal heart sound present PERIPHERAL PULSES: Peripheral pulses 2+ throughout GI: COMMON NORMALS: Normal to inspection, nondistended, normoactive bowel sounds present, Soft to palpation, non-tender, No hepatosplenomegaly present, no masses and no bruits PALPATION: Yes Soft to palpation and Yes No hepatosplenomegaly present : COMMON NORMALS: Yes no CVA tenderness, Yes normal external appearance, Yes normal appearance of the vagina, Yes normal appearance of the cervix, Yes normal bimanual exam, Yes No adnexal tenderness and Yes no masses BLADDER/KIDNEY EXAM: Yes no CVA tenderness BIMANUAL EXAM - VAGINA & UTERUS: Yes normal bimanual exam Back/Pelvis: COMMON NORMALS: no CVA tenderness, thoracic and lumbar spine normal to inspection, no thoracic nor lumbar tenderness, thoraco-lumbar ROM normal and straight leg raise negative bilaterally Extremity: COMMON NORMALS: normal to inspection, full ROM, capillary refill normal, no joint enlargement, no clubbing, cyanosis or edema, no calf tenderness and no pedal edema Neuro: COMMON NORMALS: patient oriented x3 SENSORIUM/ORIENTATION: Yes alert MENINGEAL SIGNS: Yes no meningeal signs Course Reevaluation(s): Reevaluation #1: Negative x-rays for any acute findings. Alternate heat and ice. Take medications as prescribed. Follow-up with your primary care physician you may need outpatient MRI of your neck since issues were going on for greater than a year. Tylenol Motrin as needed for pain. Time: 20:27 Vital Signs: Vital signs: Vital Signs Temperature 97.8 F 01/09/21 18:37 Pulse Rate 95 01/09/21 18:37 Respiratory Rate 17 01/09/21 18:37 Blood Pressure 138/93 01/09/21 18:37 Pulse Oximetry 96 01/09/21 18:37 MDM - Chest Pain MDM Narrative: Medical decision making narrative: Chronic issues for her with her neck and left shoulder pain going on for over a year. No acute injury today. Medical Records: Attestation: I reviewed the patient's medical records. Lab Data: Attestation: I reviewed the patient's lab results. Imaging Data^: Xray Ortho: My impression: Negative for any acute findings. Discharge Plan Discharge Patient Disposition: Home Clinical Impression: Neck pain on left side, Radiculopathy affecting upper extremity Condition: Stable Prescriptions: New cyclobenzaprine 5 mg tablet 5 mg PO TID PRN (Reason: muscle spasm) Qty: 10 RF: 0 diclofenac sodium 75 mg tablet,delayed release (DR/EC) 75 mg PO BID PRN (Reason: pain) Qty: 20 RF: 0 No Action Mirena 20 mcg/24 hours (5 yrs) 52 mg intrauterine device 1 device INTRAUTERI .every 5 years Qty: 1 RF: 0 albuterol sulfate 2.5 mg /3 mL (0.083 %) solution for nebulization 2.5 mg INHALATION Q4H PRN (Reason: shortness of breath or wheezing) 30 Days Qty: 180 RF: 11 albuterol sulfate [ProAir HFA] 90 mcg/actuation HFA aerosol inhaler 2 puff INHALATION QID PRN (Reason: shortness of breath or wheezing) 30 Days Qty: 6.7 RF: 11 fluticasone propion-salmeterol [Advair Diskus] 250-50 mcg/dose blister with device 1 inh INHALATION BID 30 Days Qty: 60 RF: 11 lisinopril 10 mg tablet 10 mg PO DAILY 30 Days Qty: 30 RF: 5 ibuprofen 200 mg Tablet 600 mg PO PRN RF: 0 ipratropium bromide 0.02 % solution 2.5 ml INHALATION Q4H PRN (Reason: shortness of breath or wheezing) Qty: 62.5 RF: 0 Discharge Orders: Discharge ED (Routine); Ordered 01/09/21 Ordered By: Sina Negro Referrals: Cori Brooke FNP-C [Primary Care Provider] - Discharge Diet: Advance as tolerated Discharge Activity: Resume usual activity and Increase activity as tolerated Patient Instructions: Opioid Safety Activity Restrictions/Additional Instructions: Negative x-rays for any acute findings. Alternate heat and ice. Take medications as prescribed. Follow-up with your primary care physician you may need outpatient MRI of your neck since issues were going on for greater than a year. Tylenol Motrin as needed for pain. Coding Level of Care Code ED Learning Coordinator for Chg Fwd Exam Comprehensive
[2021-01-09 20:36] VITALS: BP 139/93; PULSE 87; RESP 16; O2SAT 96
== END 2021-01-09 20:36 | disposition home or self-care (01) ==
PROVIDERS: Emergency Provider Emergency Medicine; PCP Nurse Practitioner Family
DX: M54.2 Cervicalgia (principal); M54.10 Radiculopathy, site unspecified; I10 Essential (primary) hypertension; F17.210 Nicotine dependence, cigarettes, uncomplicated
CPT/HCPCS: 72040; 99282

== ENCOUNTER 2021-01-23 08:30 | Outpatient (CLI) | payer SELFPAY ==
--- NOTE | 2021-01-23 08:45 | MR_ITS ---
WS: [id number] MRI CERVICAL SPINE NONCONTRAST HISTORY: M54.2 - Cervicalgia COMPARISON: None available. Technique: Multiplanar, multisequence noncontrast imaging of the cervical spine. Normal cervical alignment with no compression fracture or significant disc space narrowing.. Mild dis c desiccation and narrowing at C5-6. Signal within the cervical cord is normal. Visualized posterior fossa is unremarkable. Craniocervical junction, C1 and C2 relationship, odontoid process and soft tissues are normal. C2-C3: Normal. C3-C4: Tiny central disc protrusion. No stenosis. C4-C5: Mild osteophytic ridging. No stenosis. C5-C6: Mild osteophytic ridging and a central disc protrusion. C6-C7: Very shallow central disc protrusion. No stenosis. C7-T1: Very tiny central disc protrusion. Benign cervical chain lymph nodes. Small mucous retention cyst in the RIGHT sphenoid sinus. MR/MR cervical spin wo con* [id number] IMPRESSION: 1. No significant central or foraminal stenosis or disc protrusions. 2. Very tiny disc protrusions as above without cord contact.
--- NOTE | 2021-01-23 09:30 | MR_ITS ---
WS: [id number] MRI LEFT SHOULDER HISTORY: M25.512 - Pain in left shoulder COMPARISON: None available. TECHNIQUE: Multiplanar sequences of the shoulder joint are submitted. Mild AC joint arthritis. There is a small amount of increased T2 signal in the AC joint. Very minimal hypertrophic osteophytes and soft tissue changes. Very small amount of subdeltoid bursal fluid. No s ignificant encroachment upon the supraspinatus. No os acromion. Biceps tendon in normal position. No rotator cuff tears are identified. Small amount of tendinopathy in the distal supraspinatus. Mild thickening and increased signal in the tendon. No muscle atrophy or edema. Increased signal within th e base of the anterior superior labrum. Signal is noted only on the axial imaging. There is too much motion artifact on the sagittal images to confirm tear. MR/MR shoulder LT wo con* [id number] IMPRESSION: 1. No rotator cuff tear. 2. Mild AC joint arthritis. 3. Anterior superior labral tear is likely. Cannot confirm tear on the sagitta l imaging due to significant motion artifact.
== END 2021-01-23 08:31 | disposition home or self-care (01) ==
PROVIDERS: PCP Nurse Practitioner Family; Visit Provider Nurse Practitioner Family
DX: M54.2 Cervicalgia (principal); M25.512 Pain in left shoulder; M13.812 Other specified arthritis, left shoulder
CPT/HCPCS: 72141; 73221

== ENCOUNTER 2021-02-10 17:58 | Emergency (ER) | payer SELFPAY ==
[2021-02-10 18:31] VITALS: BP 148/89; PULSE 89; RESP 18; TEMP 36.9; O2SAT 95; BMI 40.3
--- NOTE | 2021-02-10 19:07 | ED_ITS ---
HPI - URI/Sore Throat General: Chief Complaint: Upper Respiratory Infection Stated Complaint: COUGH,STUFFY,RUNNY NOSE, FEVER 100.0 AT HOME Time Seen by Provider: 02/10/21 19:06 History of Present Illness: HPI Narrative: 40-year-old female comes in today with complaints of changes in taste, cough, and sinus drainage. Patient also reports occasional cough with congestion to the chest. Patient appears mildly unwell. Patient appears in no pain. MD elicited complaint: fever, cough and nasal congestion Onset (ago): day(s) Severity: moderate Description of mucous: clear Associated symptoms: Reports diarrhea and fever(s) Review of Systems General: Reports: 10 or more systems reviewed and unremarkable except in HPI and below Const: Reports: fever(s) Resp: Reports: productive cough GI: Reports: diarrhea PFSH ED PFSH: Medical History (Updated 02/10/21 @ 20:47 by KELLY Shetty) Essential hypertension Diagnosed in February 2020 being managed by PMD. 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 PCP: KELLY Cueto Surgical History Status post cholecystectomy 1999--laparoscopic procedure Status post tubal ligation 2007--laparoscopic procedure Family History Grandmother Breast cancer maternal, age at diagnosis unknown Denies family history of Colon cancer Ovarian cancer Diabetes Heart disease Hyperlipidemia Anesthesia complication Bleeding disorder Hypertension Uterine cancer Thyroid condition Stroke Social History Smoking and tobacco status: current every day smoker cigarettes Packs smoked per day: 0.5 Alcohol intake: never Lives independently: Yes Housing: House Marital status: Single Current occupational status: employed History of recent travel: No Physical Exam Const: COMMON NORMALS: no acute distress and patient oriented x3 GENERAL APPEARANCE: cooperative HENMT: COMMON NORMALS: normocephalic, TM's normal bilaterally and Normal external nose present HEAD & SCALP: normal to inspection and normocephalic NOSE: Normal external nose present TYMPANIC MEMBRANE: TM's normal bilaterally MOUTH: Normal oral and palatal mucosa present Eye: GENERAL EYE: appearance normal, both eyes and all related structures Neck/C-Spine: COMMON NORMALS: full ROM Lymph: LYMPHATIC: no lymphadenopathy noted Chest: COMMONS NORMALS: normal inspection of the chest Resp: COMMON NORMALS: normal respiratory effort EFFORT & INSPECTION: Yes able to speak in complete sentences Cardio: COMMON NORMALS: regular rate and regular rhythm RATE: regular rate RHYTHM: regular rhythm GI: COMMON NORMALS: non-tender Extremity: COMMON NORMALS: normal to inspection Neuro: COMMON NORMALS: patient oriented x3 and moves all extremities Psych: COMMON NORMALS: mental status grossly normal and cooperative Skin: COMMON NORMALS: no rashes or lesions noted GENERAL SKIN EXAM: no r ashes or lesions noted Course Vital Signs: Vital signs: Vital Signs Temperature 98.4 F 02/10/21 18:31 Pulse Rate 89 02/10/21 18:31 Respiratory Rate 18 02/10/21 18:31 Blood Pressure 148/89 02/10/21 18:31 Pulse Oximetry 95 02/10/21 18:31 MDM - URI/Sore Throat MDM Narrative: Medical decision making narrative: Patient comes in today with complaints of cough, sinus congestion, and chest discomfort when taking a deep breath. Patient appears well. Patient appears in no acute distress. Patient reports that her son is also been ill. On exam patient has some drainage in the posterior pharynx. Respirations are even lungs are clear to auscultation. Vital signs are normal. Differential diagnosis includes but not limited to upper respiratory infection, sinusitis, bronchitis. COVID-19 and influenza test were negative. Reviewed exam with patient with recommendations for treatment for upper respiratory infection. Patient reported understanding and agreed with plan. Lab Data: Labs: Lab Results 02/10/21 02/10/21 Range/Units 19:20 19:20 Influenza Type A A g Negative (Negative) Influenza Type B A g Negative (Negative) SARS-CoV-2 Ag (Rap id) Negative (Negative) Discharge Plan Discharge Patient Disposition: Home Clinical Impression: Upper respiratory infection Qualifiers: URI type: unspecified URI Qualified Code(s): J06.9 - Acute upper respiratory infection, unspecified Condition: Stable Prescriptions: No Action Mirena 20 mcg/24 hours (5 yrs) 52 mg intrauterine device 1 device INTRAUTERI .every 5 years Qty: 1 RF: 0 albuterol sulfate 2.5 mg /3 mL (0.083 %) solution for nebulization 2.5 mg INHALATION Q4H PRN (Reason: shortness of breath or wheezing) 30 Days Qty: 180 RF: 11 albuterol sulfate [ProAir HFA] 90 mcg/actuation HFA aerosol inhaler 2 puff INHALATION QID PRN (Reason: shortness of breath or wheezing) 30 Days Qty: 6.7 RF: 11 fluticasone propion-salmeterol [Advair Diskus] 250-50 mcg/dose blister with device 1 inh INHALATION BID 30 Days Qty: 60 RF: 11 ipratropium bromide 0.02 % solution 2.5 ml INHALATION Q4H PRN (Reason: shortness of breath or wheezing) Qty: 62.5 RF: 0 Discharge Orders: Discharge ED (Routine); Ordered 02/10/21 Ordered By: Richy Jolly Referrals: Cori Brooke FNP-C [Primary Care Provider] - Discharge Diet: Usual diet Discharge Activity: Increase activity as tolerated Patient Instructions: Upper Respiratory Infection (ED), Opioid Safety Activity Restrictions/Additional Instructions: Drink plenty of fluids. Use [id number]-[id number] cold remedy such as DayQuil as needed for congestion and sinus pain. Use acetaminophen and ibuprofen for fever and pain. Drink plenty of water. Follow-up with primary care for further instructions. Return to the ER for new concerns. Coding Level of Care Code ED Gluing Machine Operator Automatic for Machelle Fwd Exam Comprehensive
[2021-02-10 20:20] LABS: Influenza A by IFA Negative (Negative); Influenza B by IFA Negative (Negative); SARS Covid-2 Antigen Negative (Negative)
[2021-02-10 20:54] VITALS: BP 148/69; PULSE 87; RESP 18; O2SAT 95
== END 2021-02-10 20:55 | disposition home or self-care (01) ==
PROVIDERS: Emergency Provider Nurse Practitioner Family; PCP Nurse Practitioner Family
DX: J06.9 Acute upper respiratory infection, unspecified (principal); I10 Essential (primary) hypertension; F17.210 Nicotine dependence, cigarettes, uncomplicated
CPT/HCPCS: 87426; 87804; 99282

== ENCOUNTER 2021-02-16 10:31 | Emergency (ER) | payer OTHER, SELFPAY ==
[2021-02-16 11:01] VITALS: BP 133/90; PULSE 82; RESP 18; TEMP 36.7; O2SAT 95; BMI 40.3
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
[2021-02-16] MEDS: acetaminophen 500 mg Tablet 1000 MG PO (12:04)
[2021-02-16 12:24] VITALS: BP 121/87; PULSE 73; RESP 18; O2SAT 95
[2021-02-16 12:55] VITALS: BP 121/87; PULSE 73; RESP 18; TEMP 36.8; O2SAT 95
== END 2021-02-16 12:56 | disposition home or self-care (01) ==
PROVIDERS: Emergency Provider Physician Assistant; PCP Nurse Practitioner Family
DX: S13.4XXA Sprain of ligaments of cervical spine, initial encounter (principal); G44.319 Acute post-traumatic headache, not intractable; V49.9XXA Car occupant (driver) (passenger) injured in unspecified traffic accident, initial encounter; I10 Essential (primary) hypertension; F17.210 Nicotine dependence, cigarettes, uncomplicated
CPT/HCPCS: 70450; 72125; 99283

== ENCOUNTER 2021-02-26 09:30 | Emergency (ER) | payer OTHER, SELFPAY ==
[2021-02-26 09:51] VITALS: BP 120/84; PULSE 82; RESP 18; TEMP 36.9; O2SAT 96; BMI 40.3
[2021-02-26 10:26] VITALS: BP 120/84; PULSE 82; RESP 17; TEMP 36.9; O2SAT 98
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
== END 2021-02-26 10:27 | disposition home or self-care (01) ==
LOC: ER 10:37
PROVIDERS: Emergency Provider Nurse Practitioner Family; PCP Nurse Practitioner Family
DX: S13.4XXA Sprain of ligaments of cervical spine, initial encounter (principal); I10 Essential (primary) hypertension; F17.210 Nicotine dependence, cigarettes, uncomplicated; V89.2XXA Person injured in unspecified motor-vehicle accident, traffic, initial encounter
CPT/HCPCS: 99282

== ENCOUNTER → 2021-03-28 14:08 | Outpatient (BNVA) | payer SELFPAY | PROVIDERS: PCP Nurse Practitioner Family; Visit Provider Nurse Practitioner Family | DX: J06.9 Acute upper respiratory infection, unspecified (principal); Z20.822 Contact with and (suspected) exposure to COVID-19 | CPT/HCPCS: 87635 ==

== ENCOUNTER → 2021-03-30 14:52 | Outpatient (BNVA) | payer OTHER, SELFPAY | PROVIDERS: PCP Nurse Practitioner Family; Visit Provider Emergency Medicine | DX: Z20.822 Contact with and (suspected) exposure to COVID-19 (principal) | CPT/HCPCS: 87635 ==

== ENCOUNTER → 2021-04-24 15:32 | Outpatient (BNVA) | payer OTHER, SELFPAY | PROVIDERS: PCP Nurse Practitioner Family; Visit Provider Nurse Practitioner Family | DX: Z20.822 Contact with and (suspected) exposure to COVID-19 (principal); A60.00 Herpesviral infection of urogenital system, unspecified; J45.901 Unspecified asthma with (acute) exacerbation; J45.31 Mild persistent asthma with (acute) exacerbation; Z11.52 Encounter for screening for COVID-19; A60.04 Herpesviral vulvovaginitis | CPT/HCPCS: 87635 ==

== ENCOUNTER → 2021-05-02 08:54 | Outpatient (BNVA) | payer SELFPAY | PROVIDERS: PCP Nurse Practitioner Family; Visit Provider Nurse Practitioner Family | DX: N39.0 Urinary tract infection, site not specified (principal); B37.3 Candidiasis of vulva and vagina; R30.0 Dysuria | CPT/HCPCS: 81000 ==

== ENCOUNTER 2021-05-22 17:39 | Emergency (ER) | payer SELFPAY ==
[2021-05-22 17:43] VITALS: BP 139/99; PULSE 96; RESP 16; TEMP 36.8; O2SAT 97; BMI 40.3
[2021-05-22 20:18] VITALS: BP 129/82; PULSE 77; RESP 16; O2SAT 95
--- NOTE | 2021-05-22 21:40 | CTR_ITS ---
PROCEDURE INFORMATION: Exam: CT Head Without Contrast Exam date and time: 05/22/2021 9:40 PM Age: 40 years old Clinical indication: Pain; Headache; Additional info: Headache with right side facial numbness TECHNIQUE: Imaging protocol: Computed tomography of the head without contrast. Radiation optimization: All CT scans at this facility use at least one of these dose optimization techniques: automated exposure control; mA and/or kV adjustment per patient size (includes targeted exams where dose is matched to clinical indication); or iterative reconstruction. COMPARISON: CT head wo con* [id number] 02/16/2021 12:04 PM RADIATION DOSE METRICS: Total DLP (mGy-cm): 867.87 FINDINGS: Brain: Normal. No hemorrhage. Unremarkable white matter. No mass effect. Cerebral ventricles: No ventriculomegaly. Paranasal sinuses: Visualized sinuses are unremarkable. No fluid levels. Mastoid air cells: Visualized mastoid air cells are well aerated. Bones/joints: Unremarkable. No acute fracture. Soft tissues: Unremarkable. CT/CT head wo con* [id number] IMPRESSION: No acute intracranial abnormality. Radiation Dose CTDIVOL = (mGy): DLP = 867.87 (mGy-cm)
--- NOTE | 2021-05-22 23:13 | ED_ITS ---
HPI - Headache General: Chief Complaint: Headache Stated Complaint: RIGHT SIDE HEAD AND FACE NUMB Time Seen by Provider: 05/22/21 22:54 History of Present Illness: HPI Narrative: Pt is a 40 y/o female who comes to the ED with headache. Patient says headache started approximately 1 week ago. She endorses photophobia with headache. She currently rates headache a 5 out of 10. She describes headache as a pressure on right parietal region of head. She has some blurry vision in right eye and also endorsed having some numbness and tingling on the parietal region of head. Denies any recent injury or head trauma. She states she has never had a headache like this before. Denies any nausea/vomiting. Denies any numbness tingling or weakness to face or extremities. Associated symptoms: Deny chest pain, fever(s), nausea, rash or vomiting Review of Systems Const: Denies: fever(s), chills or fatigue Eyes: Reports: blurry vision (Right eye) and photophobia; Denies: change in vision or eye discomfort ENMT: Denies: throat pain, odynophagia, nasal discharge or nasal congestion Card: Denies: chest pain, palpitations, edema, swelling of feet/ankles, dyspnea on exertion or orthopnea Resp: Denies: dyspnea, productive cough or non-productive cough GI: Denies: abdominal pain, nausea, vomiting, diarrhea, constipation or hematochezia : Denies: flank pain, dysuria or hematuria Musc: Denies: neck pain, back pain or extremity swelling Skin/Breast: Denies: rash or new lesions Neuro: Reports: headache(s) and other (numbness to parietal region of scalp); Denies: numbness in extremities or weakness in extremities PFSH ED PFSH: Medical History Essential hypertension Diagnosed in February 2020 being managed by PMD. 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 PCP: KELLY Cueto Surgical History Status post cholecystectomy 1999--laparoscopic procedure Status post tubal ligation 2007--laparoscopic procedure Family History Grandmother Breast cancer maternal, age at diagnosis unknown Denies family history of Colon cancer Ovarian cancer Diabetes Heart disease Hyperlipidemia Anesthesia complication Bleeding disorder Hypertension Uterine cancer Thyroid condition Stroke Social History Second hand smoke exposure: No Alcohol intake: never Desire information about substance/drug rehabilitation?: No Counseling given: Yes Adopted: No Caregiver/support person: No Lives independently: Yes Household members: children Housing: House Marital status: Single Current occupational status: employed History of recent travel: Yes (Returned on 04/16/21) Details: [place], [place] Out of country: Yes Physical Exam Const: COMMON NORMALS: no acute distress, patient oriented x3 and alert GENERAL APPEARANCE: cooperative and comfortable HENMT: COMMON NORMALS: normocephalic HEAD & SCALP: normocephalic MOUTH: Normal oral and palatal mucosa present THROAT: posterior oropharynx normal and uvula midline Eye: COMMON NORMALS: Equal, round and reactive pupils present, EOMs intact b ilaterally, conjunctivae normal and normal visual rdz by confrontation CONJUNCTIVA: Yes conjunctivae normal PUPIL: Yes Equal, round and reactive pupils present Neck/C-Spine: COMMON NORMALS: supple GENERAL: Yes normal visual inspection Resp: COMMON NORMALS: normal respiratory effort, No retractions, No use of accessory muscles and clear to auscultation bilaterally AUSCULTATION: clear to auscultation bilaterally Cardio: COMMON NORMALS: regular rate, regular rhythm, S1 normal heart sound present, S2 normal heart sound present, No gallops present (Cardio), No clicks present (Cardio), No murmurs present (Cardio) and Peripheral pulses 2+ throughout RATE: regular rate RHYTHM: regular rhythm HEART SOUNDS: S1 normal heart sound present and S2 normal heart sound present PERIPHERAL PULSES: Peripheral pulses 2+ throughout GI: COMMON NORMALS: Normal to inspection, nondistended, normoactive bowel sounds present, Soft to palpation, non-tender and no masses PALPATION: Yes Soft to palpation : COMMON NORMALS: Yes no CVA tenderness BLADDER/KIDNEY EXAM: Yes no CVA tenderness Back/Pelvis: COMMON NORMALS: no CVA tenderness Extremity: COMMON NORMALS: normal to inspection Neuro: COMMON NORMALS: patient oriented x3, CN's II-XII intact bilaterally, moves all extremities, no focal motor deficits and no sensory deficits noted SENSORIUM/ORIENTATION: Yes alert COORDINATION/BALANCE: [id number]-[id number] test normal SPEECH: speech normal GAIT: Yes Normal gait present SENSORY EXAM: Yes extremities (intact) MOTOR EXAM: 5/5 motor strength present throughout COORDINATION: domrrz-jj-souh test normal Skin: COMMON NORMALS: no rashes or lesions noted GENERAL SKIN EXAM: no rashes or lesions noted Course ED course: Patient's headache improved after IV meds. She was ready to go home and rest. Vital Signs: Vital signs: Vital Signs Temperature 98.7 F 05/23/21 01:16 Pulse Rate 78 05/23/21 01:16 Respiratory Rate 18 05/23/21 01:16 Blood Pressure 110/77 05/23/21 01:16 Pulse Oximetry 99 05/23/21 01:16 MDM - Headache MDM Narrative: Medical decision making narrative: Patient is a 40-year-old female comes to the ED with migraine symptoms. Patient says she has never had a migraine before. Vitals are stable. Exam shows a nontoxic healthy appearing patient in no acute distress or pain. Neuro exam is normal and shows no deficits. CT of head shows no acute findings. Patient was given IV fluids, Toradol and Decadron and said her symptoms improved. She was diagnosed with a migraine and discharged home. She was told to follow-up with her PCP in 7 to 10 days reevaluation. Return to ED precautions given. Patient understood and agree with plan. Imaging Data^: CT Head: Attestation: I personally reviewed and interpreted this imaging study as follows: Radiologist's impression: [address] [address] [address] Scan Report Signed Patient: Umberto Telles Unit #: [id number] : 1980 Age/Sex: 40 / F ADM Date: 05/22/21 Loc: ER Room/Bed: Attending Dr: Ordering Provider/Ordering MD: Juno Hairston Date of Service: 05/22/21 Procedure(s): CT head wo con* [id number] Accession Number(s): [id number] Report Number: [id number] PROCEDURE INFORMATION: Exam: CT Head Without Contrast Exam date and time: 05/22/2021 9:40 PM Age: 40 years old Clinical indication: Pain; Headache; Additional info: Headache with right side facial numbness TECHNIQUE: Imaging protocol: Computed tomography of the head without contrast. Radiation optimization: All CT scans at this facility use at least one of these dose optimization techniques: automated exposure control; mA and/or kV adjustment per patient size (includes targeted exams where dose is matched to clinical indication); or iterative reconstruction. COMPARISON: CT head wo con* [id number] 02/16/2021 12:04 PM RADIATION DOSE METRICS: Total DLP (mGy-cm): 867.87 FINDINGS: Brain: Normal. No hemorrhage. Unremarkable white matter. No mass effect. Cerebral ventricles: No ventriculomegaly. Paranasal sinuses: Visualized sinuses are unremarkable. No fluid levels. Mastoid air cells: Visualized mastoid air cells are well aerated. Bones/joints: Unremarkable. No acute fracture. Soft tissues: Unremarkable. CT/CT head wo con* [id number] IMPRESSION: No acute intracranial abnormality. Radiation Dose CTDIVOL = (mGy): DLP = 867.87 (mGy-cm) Dictated By: Juarez Carlton DO Signed By: Juarez Carlton DO Signed Date/Time: 05/22/212204 DD/ 03 Discharge Plan Discharge Patient Disposition: Home Clinical Impression: Migraine Qualifiers: Migraine type: without aura Status migrainosus presence: with status migrainosus Intractability: not intractable Qualified Code(s): G43.001 - Migraine without aura, not intractable, with status migrainosus Condition: Stable Prescriptions: New Medrol (Isidro) 4 mg tablets,dose pack See Rx Instructions .ROUTE .COMPLEX Qty: 21 RF: 0 No Action cephalexin 500 mg capsule 500 mg PO TID 7 Days Qty: 21 RF: 0 fluconazole [Diflucan] 150 mg tablet 150 mg PO Q3D Qty: 2 RF: 0 terconazole 0.8 % cream 5 g vaginal DAILY 3 Days Qty: 20 RF: 0 Mirena 20 mcg/24 hours (5 yrs) 52 mg intrauterine device 1 device INTRAUTERI .every 5 years Qty: 1 RF: 0 acyclovir 400 mg tablet 400 mg PO TID 7 Days Qty: 21 RF: 0 dexamethasone 6 mg tablet 6 mg PO DAILY 5 Days Qty: 5 RF: 0 albuterol sulfate 2.5 mg /3 mL (0.083 %) solution for nebulization 2.5 mg INHALATION Q4H PRN (Reason: shortness of breath or wheezing) 30 Days Qty: 180 RF: 11 albuterol sulfate [ProAir HFA] 90 mcg/actuation HFA aerosol inhaler 2 puff INHALATION QID PRN (Reason: shortness of breath or wheezing) 30 Days Qty: 6.7 RF: 11 fluticasone propion-salmeterol [Advair Diskus] 250-50 mcg/dose blister with device 1 inh INHALATION BID 30 Days Qty: 60 RF: 11 Celebrex 100 mg capsule 100 mg PO BID Qty: 20 RF: 0 cyclobenzaprine 5 mg tablet 5 mg PO TID PRN (Reason: muscle spasm) Qty: 10 RF: 0 ipratropium bromide 0.02 % solution 2.5 ml INHALATION Q4H PRN (Reason: shortness of breath or wheezing) Qty: 62.5 RF: 0 Discharge Orders: Discharge ED (Routine); Ordered 05/23/21 Ordered By: Juno Hairston Referrals: Cori Brooke FNP-C [Primary Care Provider] - Discharge Diet: Regular Discharge Activity: Increase activity as tolerated Patient Instructions: Migraine Headache (ED) Activity Restrictions/Additional Instructions: Follow-up with your PCP to be reevaluated in about 7 to 10 days. Continue taking all previously prescribed medications as usual. Take [id number] Tylenol or Motrin as needed for pain. Return to the ER or your medical provider if condition worsens. Please read and understand discharge instructions. Thank you for choosing [facility] for your healthcare needs today. Please realize this is an emergency room and that we are providing you with a medical screening exam and this may not be complete and all inclusive of all the testing and or work up that you may need to determine your ailment or severity of your illness. It is very important that you follow up as instructed or that you return to the Emergency Department should you have concerns or if your condition changes or worsens in any way. Coding Level of Care Code ED Billet Grinder for Machelle Fwjesus Exam Comprehensive
[2021-05-22] MEDS: ketorolac 30 mg/mL INJ IVP (23:58)
[2021-05-22] MEDS: dexamethasone 10 mg/mL INJ IVP (23:58)
[2021-05-23 00:13] VITALS: BP 113/78; PULSE 78; RESP 18; O2SAT 99
[2021-05-23 01:16] VITALS: BP 110/77; PULSE 78; RESP 18; TEMP 37.1; O2SAT 99
== END 2021-05-23 01:14 | disposition home or self-care (01) ==
PROVIDERS: Emergency Provider Physician Assistant; PCP Nurse Practitioner Family
DX: G43.001 Migraine without aura, not intractable, with status migrainosus (principal); I10 Essential (primary) hypertension
CPT/HCPCS: 70450; 96374; 96375; 99283; J1100; J1885

== ENCOUNTER → 2021-06-20 15:52 | Outpatient (BNVA) | payer SELFPAY | PROVIDERS: PCP Nurse Practitioner Family; Visit Provider Nurse Practitioner Family | DX: R10.31 Right lower quadrant pain (principal); M54.50 Low back pain, unspecified | CPT/HCPCS: 74018; 80053; 81000; 85025; 87491; 87591; 87661 ==

== ENCOUNTER → 2021-07-19 13:53 | Outpatient (BNVA) | payer SELFPAY | PROVIDERS: PCP Nurse Practitioner Family; Visit Provider Nurse Practitioner Family | DX: R74.8 Abnormal levels of other serum enzymes (principal); Z11.59 Encounter for screening for other viral diseases | CPT/HCPCS: 80053; 86705; 86706; 86709; 86803; 87340 ==

== ENCOUNTER → 2021-07-20 18:02 | Outpatient (BNVA) | payer OTHER, SELFPAY | PROVIDERS: PCP Nurse Practitioner Family; Visit Provider Registered Nurse Neonatal Intensive Care | DX: M25.531 Pain in right wrist (principal); M79.641 Pain in right hand; W50.0XXA Accidental hit or strike by another person, initial encounter; W50.4XXA Accidental scratch by another person, initial encounter; Y99.0 Civilian activity done for income or pay; Z68.41 Body mass index [BMI] 40.0-44.9, adult | CPT/HCPCS: 73110 ==

== ENCOUNTER → 2021-09-06 15:19 | Outpatient (BNVA) | payer OTHER, SELFPAY | PROVIDERS: PCP Nurse Practitioner Family; Visit Provider Nurse Practitioner Family | DX: Z20.822 Contact with and (suspected) exposure to COVID-19 (principal) | CPT/HCPCS: 87635 ==

== ENCOUNTER 2021-11-02 06:34 | Emergency (ER) | payer SELFPAY ==
[2021-11-02] VITALS (8 sets, daily range): BP systolic 113–164; BP diastolic 65–88; PULSE 85–103; RESP 15–18; TEMP 36.4; O2SAT 91–96; BMI 40.3
--- NOTE | 2021-11-02 06:54 | XR_ITS ---
WS: [id number] Exam: XR chest 1V portable [id number] Date/Time of Exam: 11/02/2021 6:59 AM Reason For Exam: dyspnea Comparison 07/13/2020. Findings: The lungs are clear and fully expanded. Costophrenic angles are sharp. No infiltrates. Bronchovascula r relief appears normal. Cardiac silhouette is unremarkable. Bony elements are intact. XR/XR chest 1V portable [id number] IMPRESSION: Unremarkable chest radiograph.
--- NOTE | 2021-11-02 06:55 | ECG_ITS ---
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 Measurements Intervals [place] Rate: 89 P: 69 [place]: 138 QRS: 62 QRSD: 92 T: 20 QT: 364 QTc: 445 Interpretive Statements SINUS RHYTHM Compared to ECG 07/10/2020 16:41:53 No significant changes Electronically Signed On 11-02-2021 13:42:14 STRATEGIC ADVISOR by Thom Saucedo M.D. [email or web address]
--- NOTE | 2021-11-02 07:03 | ED_ITS ---
HPI - General Adult General: Chief complaint: Shortness of Breath/Dyspnea Stated complaint: SOB Time Seen by Provider: 11/02/21 06:40 History of Present Illness: Patient is a 41-year-old female with history of asthma, COPD, recent Covid on who presents the emergency room with worsening dyspnea x3 days. Patient tells me that today patient has has used her albuterol inhaler 4 times with mild improvement in symptoms. She also reports nonproductive cough. Denies any fever or chills, chest pain, nausea/vomiting, abdominal pain, diarrhea, melena or hematochezia. Onset: 3 days ago Duration:3 days Location:home Severity:moderate Associated symptoms: Reports dyspnea; Deny chest pain, nausea, rash, palpitations or vomiting Review of Systems Const: Denies: fever(s) or chills Eyes: Denies: change in vision ENMT: Denies: mouth pain Card: Denies: chest pain or palpitations Resp: Reports: dyspnea and non-productive cough GI: Denies: abdominal pain, nausea, vomiting or diarrhea : Denies: dysuria Musc: Denies: extremity pain Skin/Breast: Denies: rash or new lesions Neuro: Denies: weakness in extremities Psych: Reports: other (Normal mood) Farhat/Lymph: Denies: easy bruising PFSH ED PFSH: Medical History (Updated 11/02/21 @ 09:55 by Alex Kincaid MD) Essential hypertension Diagnosed in February 2020 being managed by PMD. 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 PCP: KELLY Cueto Surgical History Status post cholecystectomy 1999--laparoscopic procedure Status post tubal ligation 2007--laparoscopic procedure Family History Grandmother Breast cancer maternal, age at diagnosis unknown Denies family history of Colon cancer Ovarian cancer Diabetes Heart disease Hyperlipidemia Anesthesia complication Bleeding disorder Hypertension Uterine cancer Thyroid condition Stroke Social History Second hand smoke exposure: No Alcohol intake: never Desire information about substance/drug rehabilitation?: No Counseling given: Yes Adopted: No Caregiver/support person: No Lives independently: Yes Household members: children Housing: House Marital status: Single Current occupational status: employed History of recent travel: Yes (Returned on 04/16/21) Details: [place], [place] Out of country: Yes Physical Exam Const: COMMON NORMALS: alert HENMT: COMMON NORMALS: atraumatic HEAD & SCALP: atraumatic MOUTH: moist mucous membranes not abnormal Eye: COMMON NORMALS: EOMs intact bilaterally and conjunctivae normal CONJUNCTIVA: Yes conjunctivae normal Neck/C-Spine: COMMON NORMALS: full ROM and supple Resp: COMMON NORMALS: normal respiratory effort OTHER: +wheezes b/l Cardio: COMMON NORMALS: regular rate RATE: regular rate GI: COMMON NORMALS: Soft to palpation and non-tender PALPATION: Yes Soft to palpation Extremity: COMMON NORMALS: full ROM Neuro: SENSORIUM/ORIENTATION: Yes alert MOTOR EXAM: No Abnormal motor strength present and Other motor observations present (no focal motor deficits) Psych: COMMON NORMALS: speech normal SPEECH: Yes normal speech MOOD & AFFECT: Yes euthymic mood Course Vital Signs: Vital signs: Vital Signs Temperature 97.5 F L 11/02/21 06:40 Pulse Rate 95 11/02/21 09:55 Respiratory Rate 18 11/02/21 09:55 Blood Pressure 143/83 11/02/21 09:55 Pulse Oximetry 95 11/02/21 09:55 MDM - General Adult Medical Decision Making 41-year-old female with history of asthma/COPD, currently 2 weeks post Covid presenting to the emergency room with dyspnea and bilateral wheezing. Exam, patient satting well at 95% on room air. Patient is noted to have a mild exp iratory and baseline wheezes. Troponin BMP within normal limit. CT negative for PE. X-ray chest not show any signs of acute pneumonia. White count within normal limit. Patient is afebrile. Patient received DuoNeb and Solu-Medrol improvement in symptoms. Patient is able to ambulate. Continues to satting greater 95% on room air post ambulation. Lung sounds improved after breathing treatment. Rx albuterol spacer, and prednisone 50mg daily x 5 days Disposition: Discharge. Patient counseled regarding diagnostic impression, treatment plan. Patient given ED strict return precautions to return for continuation, worsening, or development of new symptoms. Instructed to f/u w/ PCP regarding symptoms today. Patient verbalized understanding. Lab Data : 11/02/21 07:14 11/02/21 07:14 Radiology Impressions Chest X-Ray 11/02/21 06:54 IMPRESSION: Unremarkable chest radiograph. Chest CTA 11/02/21 07:54 IMPRESSION: 1. Suboptimal opacification of the pulmonary arteries. No central pulmonary embolism. 2. No pneumonia. 3. No adenopathy. 4. No RIGHT heart strain. Laboratory Results WBC 11.3 10^3/uL (4.0-10.0) H 11/02/21 07:14 RBC 5.03 10^6/uL (4.1-5.3) 11/02/21 07:14 Hgb 14.2 g/dL (11.5-15.3) 11/02/21 07:14 Hct 42.4 % (37.0-47.0) 11/02/21 07:14 MCV 84.3 fl (81-99) 11/02/21 07:14 MCH 28.2 pg (28.0-34.0) 11/02/21 07:14 MCHC 33.5 g/dL (30.0-36.0) 11/02/21 07:14 RDW 13.7 % (12.1-15.1) 11/02/21 07:14 Plt Count 236 10^3/cmm (130-400) 11/02/21 07:14 MPV 11.2 fL (7.4-10.4) H 11/02/21 07:14 Neut % (Auto) 63.1 % 11/02/21 07:14 Lymph % (Auto) 26.3 % 11/02/21 07:14 [place] % (Auto) 5.0 % 11/02/21 07:14 Eos % (Auto) 4.8 % 11/02/21 07:14 Baso % (Auto) 0.5 % 11/02/21 07:14 Neut # (Auto) 7.12 10^3/uL (1.8-7.7) 11/02/21 07:14 Lymph # (Auto) 3.0 10^3/uL (0.8-4.8) 11/02/21 07:14 [place]imer # (Auto) 0.6 10^3/uL (0.2-0.9) 11/02/21 07:14 Eos # (Auto) 0.5 10^3/uL (0.0-0.8) 11/02/21 07:14 Baso # (Auto) 0.1 10^3/uL (0.0-0.1) 11/02/21 07:14 Nucleated RBC % (auto) 0 % 11/02/21 07:14 Nucleated RBCs # 0.0 /100WBC 11/02/21 07:14 Sodium 138 mmol/L (136-145) 11/02/21 07:14 Potassium 4.1 mmol/L (3.5-5.1) 11/02/21 07:14 Chloride 107 mmol/L (98-107) 11/02/21 07:14 Carbon Dioxide 21 mmol/L (22-29) L 11/02/21 07:14 Anion Gap 14.1 (5-19) 11/02/21 07:14 BUN 8 mg/dL (6-20) 11/02/21 07:14 Creatinine 0.8 mg/dL (0.5-0.9) 11/02/21 07:14 GFR Calculation 79.0 mL/min (90-130) L 11/02/21 07:14 Glucose 102 mg/dL (65-115) 11/02/21 07:14 Calculated Osmolality 285 mOsm/kg (285-295) 11/02/21 07:14 Calcium 9.4 mg/dL (8.5-10.5) 11/02/21 07:14 Troponin T Baseline 7 ng/L (0-10) 11/02/21 07:14 NT-Pro-B Natriuret Pep 35 pg/mL (0-125) 11/02/21 07:14 Imaging Data Other Imaging: Radiologist's impression: [address] [address] XRay Report Signed Patient: Umberto Telles Unit #: [id number] : 1980 Age/Sex: 41 / F ADM Date: 11/02/21 Loc: ER Room/Bed: Attending Dr: Ordering Provider/Ordering MD: Alex Kincaid MD Date of Service: 11/02/21 Procedure(s): XR chest 1V portable [id number] Accession Number(s): [id number] Report Number: [id number] WS: [id number] Exam: XR chest 1V portable [id number] Date/Time of Exam: 11/02/2021 6:59 AM Reason For Exam: dyspnea Comparison 07/13/2020. Findings: The lungs are clear and fully expanded. Costophrenic angles are sharp. No infiltrates. Bronchovascular relief appears normal. Cardiac silhouette is unremarkable. Bony elements are intact. ? XR/XR chest 1V portable [id number] IMPRESSION: Unremarkable chest radiograph. ? ? Dictated By: Lewis Paiz DO Signed By: Lewis Paiz DO Signed Date/Time: 11/02/21 0800 DD/ [address] [address] [address] Scan Report Signed Patient: Umberto Telles Unit #: [id number] : 1980 Age/Sex: 41 / F ADM Date: 11/02/21 Loc: ER Room/Bed: Attending Dr: Ordering Provider/Ordering MD: Alex Kincaid MD Date of Service: 11/02/21 Procedure(s): CT angio chest PE protcl [id number] Accession Number(s): [id number] Report Number: [id number] WS: [id number] CT CHEST ANGIOGRAPHY WITH REFORMATS HISTORY: Evaluate for pulmonary embolism. TECHNIQUE: Contiguous axial images are obtained through the chest during arterial injection of intravenous contrast. Images are reconstructed to evaluate the pulmonary arteries. MIP imaging also reviewed.? All CT scans at [facility] use at least one of these dose optimization techniques: automated exposure control; mA and/or kV adjustment per patient size (includes targeted exams where dose is matched to clinical indication); or iterative reconstruction. CONTRAST: Omnipaque 350; 58 mL IV. DLP: 531.58 mGy.cm COMPARISON: 07/13/2020 Limited opacification of the pulmonary arteries. Centrally there is no pulmonary embolism. Beyond the lobar branches and portions of the segmental branches the o pacification is adequate. Beyond the segmental branches the opacification is limited. No RIGHT heart strain. Normal aorta. No mediastinal or hilar adenopathy. Lungs are clear. No pericardial or pleural effusions. Anterior chest is negative. Prior cholecystectomy. No adrenal mass. No osteoblastic or osteolytic bone disease. CT/CT angio chest PE protcl [id number] IMPRESSION: ? 1.? Suboptimal opacification of the pulmonary arteries. No central pulmonary embolism. 2.? No pneumonia. 3.? No adenopathy. 4.? No RIGHT heart strain. ? ? ? Dictated By: Cristal Jain DO Signed By: Cristal Jain DO Signed Date/Time: 11/02/21949 DD/ 5 Discharge Plan Discharge Patient Disposition: Home Clinical Impression: Bilateral wheezing, Dyspnea Condition: Stable Prescriptions: New prednisone 50 mg tablet 50 mg PO DAILY 5 Days Qty: 5 0RF Rx Instructions: administer 13 hr, 7 hr, and 1 hr before time of procedure No Action terconazole 0.8 % cream 5 g vaginal DAILY 3 Days Qty: 20 0RF Mirena 20 mcg/24 hours (5 yrs) 52 mg intrauterine device 1 device INTRAUTERI .every 5 years Qty: 1 0RF acyclovir 400 mg tablet 400 mg PO TID 7 Days Qty: 21 0RF albuterol sulfate [ProAir HFA] 90 mcg/actuation HFA aerosol inhaler 2 puff INHALATION QID PRN (Reason: shortness of breath or wheezing) 30 Days Qty: 6.7 11RF Rx Instructions: 340B, please fluticasone propion-salmeterol [Advair Diskus] 250-50 mcg/dose blister with device 1 inh INHALATION BID 30 Days Qty: 60 11RF Rx Instructions: 340B, please albuterol sulfate 2.5 mg /3 mL (0.083 %) solution for nebulization 2.5 mg INHALATION Q4H PRN (Reason: shortness of breath or wheezing) 30 Days Qty: 180 11RF Rx Instructions: 340B, please cyclobenzaprine 5 mg tablet 5 mg PO TID PRN (Reason: muscle spasm) Qty: 10 0RF ipratropium bromide 0.02 % solution 2.5 ml INHALATION Q4H PRN (Reason: shortness of breath or wheezing) Qty: 62.5 0RF Discharge Orders: Discharge ED (Routine); Ordered 11/02/21 Ordered By: Alex Kincaid Referrals: Cori Brooke FNP-C [Primary Care Provider] - Discharge Diet: Advance as tolerated Discharge Activity: Increase activity as tolerated Patient Instructions: COPD Activity Restrictions/Additional Instructions: Come back to the emergency room if your symptoms worsen, have any shortness of breath, fever/chills, dehydration, inability tolerate food or drinks, any difficulty breathing, or any new or concerning complaints. Coding Level of Care Code ED Plastic Installer for Chg Fwd Exam Comprehensive
[2021-11-02 07:23] LABS: Basophils # 0.1 10^3/uL (0.0-0.1); Basophils % 0.5 %; Eosinophils # 0.5 10^3/uL (0.0-0.8); Eosinophils % 4.8 %; Hematocrit 42.4 % (37.0-47.0); Hemoglobin 14.2 g/dL (11.5-15.3); Lymphocytes % 26.3 %; Mean Corpuscular HGB Conc 33.5 g/dL (30.0-36.0); Mean Corpuscular Hemoglobin 28.2 pg (28.0-34.0); Mean Corpuscular Volume 84.3 fl (81-99); Mean Platelet Volume 11.2 fL (7.4-10.4); Monocytes # 0.6 10^3/uL (0.2-0.9); Neutrophils # 7.12 10^3/uL (1.8-7.7); Neutrophils % 63.1 %; Nucleated Red Blood Cells % 0 %; Platelet Count 236 10^3/cmm (130-400); Red Blood Count 5.03 10^6/uL (4.1-5.3); Red Cell Distribution Width 13.7 % (12.1-15.1); White Blood Count 11.3 10^3/uL (4.0-10.0)
[2021-11-02] MEDS: terbutaline 1 mg/mL INJ 0.25 MG SUBCUT (07:31)
--- NOTE | 2021-11-02 07:37 | PC.NURSE ---
Continuous cardiac, BP, and SpO2 monitoring initiated upon arrival into room.
[2021-11-02 07:51] LABS: Troponin(5th) Baseline 7 ng/L (0-10)
[2021-11-02 07:53] LABS: Anion Gap 14.1 (5-19); Blood Urea Nitrogen 8 mg/dL (6-20); Calcium 9.4 mg/dL (8.5-10.5); Carbon Dioxide 21 mmol/L (22-29); Chloride 107 mmol/L (98-107); Glucose 102 mg/dL (65-115); NT Pro B Type Natriuretic Pept 35 pg/mL (0-125); Osmolality Calculated 285 mOsm/kg (285-295); Potassium 4.1 mmol/L (3.5-5.1); Sodium 138 mmol/L (136-145)
--- NOTE | 2021-11-02 07:54 | CT_ITS ---
WS: [id number] CT CHEST ANGIOGRAPHY WITH REFORMATS HISTORY: Evaluate for pulmonary embolism. TECHNIQUE: Contiguous axial images are obtained through the chest during arterial injection of intrav enous contrast. Images are reconstructed to evaluate the pulmonary arteries. MIP imaging also reviewe d. All CT scans at [facility] use at least one of these dose optimization techniques: automat ed exposure control; mA and/or kV adjustment per patient size (includes targeted exams where dose is matched to clinical indication); or iterative reconstruction. CONTRAST: Omnipaque 350; 58 mL IV. DLP: 531.58 mGy.cm COMPARISON: 07/13/2020 Limited opacification of the pulmonary arteries. Centrally there is no pulmonary embolism. Beyond the lobar branches and portions of the segmental branches the opacification is adequate. Beyond the segm ental branches the opacification is limited. No RIGHT heart strain. Normal aorta. No mediastinal or h ilar adenopathy. Lungs are clear. No pericardial or pleural effusions. Anterior chest is negative. Prior cholecystectomy. No adrenal mass. No osteoblastic or osteolytic bone disease. CT/CT angio chest PE protcl [id number] IMPRESSION: 1. Suboptimal opacification of the pulmonary arteries. No central pulmonary em bolism. 2. No pneumonia. 3. No adenopathy. 4. No RIGHT heart strain.
[2021-11-02] MEDS: ipratropium-albuterol 3 mL Neb INHALATION ×3 (08:29)
[2021-11-02] MEDS: iohexol 350 mg/mL 100 mL Btl IV (09:04)
[2021-11-02 10:22] LABS: Troponin 5 2HR Delta -1 ABS# (0-10)
== END 2021-11-02 10:24 | disposition home or self-care (01) ==
PROVIDERS: Emergency Provider Emergency Medicine; PCP Nurse Practitioner Family
DX: R06.2 Wheezing (principal); R06.00 Dyspnea, unspecified; I10 Essential (primary) hypertension
CPT/HCPCS: 36415; 71045; 71275; 80048; 83880; 84484; 85025; 93005; 94640; 96372; 96374; 99284; J2930; J3105; Q9967

== ENCOUNTER 2021-11-04 21:07 | Emergency (ER) | payer SELFPAY ==
[2021-11-04 21:15] VITALS: BP 150/92; PULSE 90; RESP 16; TEMP 36.6; O2SAT 95; BMI 40.3
--- NOTE | 2021-11-04 21:23 | W.ED.GENADLT ---
HPI - General Adult General: Chief complaint: General Medical Stated complaint: Mirena falling out Time Seen by Provider: 11/04/21 21:21 History of Present Illness: Patient states that she can feel the strings come out of her vagina for Mirena IUD. She like to go ahead and have it removed. She said is irritating her. Review of Systems Narrative: Strings of Mirena device hanging out from vagina. GI: Reports: other (Mild vaginal cramping denies any discharge.) Psych: Denies: anxiety PFSH ED PFSH: Medical History (Updated 11/04/21 @ 21:34 by KELLY Snider) Essential hypertension Diagnosed in February 2020 being managed by PMD. 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 PCP: KELLY Cueto Surgical History Status post cholecystectomy 1999--laparoscopic procedure Status post tubal ligation 2007--laparoscopic procedure Family History Grandmother Breast cancer maternal, age at diagnosis unknown Denies family history of Colon cancer Ovarian cancer Diabetes Heart disease Hyperlipidemia Anesthesia complication Bleeding disorder Hypertension Uterine cancer Thyroid condition Stroke Social History Second hand smoke exposure: No Alcohol intake: never Desire information about substance/drug rehabilitation?: No Counseling given: Yes Adopted: No Caregiver/support person: No Lives independently: Yes Household members: children Housing: House Marital status: Single Current occupational status: employed History of recent travel: Yes (Returned on 04/16/21) Details: [place], [place] Out of country: [place] Physical Exam Const: COMMON NORMALS: no acute distress : SPECULUM EXAM - VAGINA: No vaginal bleeding, No tenderness and No Vaginal discharge present SPECULUM EXAM - CERVIX: Yes Cervical os closed, No Abnormal cervical discharge present and Yes IUD string present (I removed her IUD without difficulty. IUD was intact.) OB/EXTERNAL & SPECULUM: No vaginal bleeding OTHER: No discharge noted. No cervical motion tenderness. Psych: APPEARANCE: Yes grossly normal Course Vital Signs: Vital signs: Vital Signs Temperature 98 F 11/04/21 21:15 Pulse Rate 90 11/04/21 21:15 Respiratory Rate 16 11/04/21 21:15 Blood Pressure 150/92 11/04/21 21:15 Pulse Oximetry 95 11/04/21 21:15 MDM - General Adult Medical Decision Making IUD removal. Patient had no vaginal discharge or tenderness. Discharge Plan Discharge Patient Disposition: Home Clinical Impression: Remove/insert IUD Condition: Stable Prescriptions: No Action terconazole 0.8 % cream 5 g vaginal DAILY 3 Days Qty: 20 0RF Mirena 20 mcg/24 hours (5 yrs) 52 mg intrauterine device 1 device INTRAUTERI .every 5 years Qty: 1 0RF acyclovir 400 mg tablet 400 mg PO TID 7 Days Qty: 21 0RF albuterol sulfate [ProAir HFA] 90 mcg/actuation HFA aerosol inhaler 2 puff INHALATION QID PRN (Reason: shortness of breath or wheezing) 30 Days Qty: 6.7 11RF Rx Instructions: 340B, please fluticasone propion-salmeterol [Advair Diskus] 250-50 mcg/dose blister with device 1 inh INHALATION BID 30 Days Qty: 60 11RF Rx Instructions: 340B, please albuterol sulfate 2.5 mg /3 mL (0.083 %) solution for nebulization 2.5 mg INHALATION Q4H PRN (Reason: shortness of breath or wheezing) 30 Days Qty: 180 11RF Rx Instructions: 340B, please cyclobenzaprine 5 mg tablet 5 mg PO TID PRN (Reason: muscle spasm) Qty: 10 0RF prednisone 50 mg tablet 50 mg PO DAILY 5 Days Qty: 5 0RF Rx Instructions: administer 13 hr, 7 hr, and 1 hr before time of procedure ipratropium bromide 0.02 % solution 2.5 ml INHALATION Q4H PRN (Reason: shortness of breath or wheezing) Qty: 62.5 0RF Discharge Orders: Discharge ED (Routine); Ordered 11/04/21 Ordered By: Varun Llamas Referrals: Cori Brooke FNP-C [Primary Care Provider] - Discharge Diet: Usual diet Discharge Activity: Resume usual activity Activity Restrictions/Additional Instructions: 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 Your IUD has been removed Coding Level of Care Code ED [employer] Products Sales Representative for Chg Fwd Exam Expanded Problem Focused
== END 2021-11-04 21:50 | disposition home or self-care (01) ==
PROVIDERS: Emergency Provider Nurse Practitioner Family; PCP Nurse Practitioner Family
DX: Z30.433 Encounter for removal and reinsertion of intrauterine contraceptive device (principal); I10 Essential (primary) hypertension
CPT/HCPCS: 99282; E0352

== ENCOUNTER 2021-11-16 16:35 | Outpatient (CLI) | payer SELFPAY ==
--- NOTE | 2021-11-16 16:47 | XR_ITS ---
WS: [id number] Chest 2 views, 11/16/2021 Clinical Data: J45.30 - Mild persistent asthma, uncomplicated Comparison: Portable chest, 11/02/2021. Findings: No nodules, masses or effusions are seen. The heart is normal. The pulmonary vascularity is not increased. No pneumonia or pneumothorax is seen. XR/XR chest 2V* [id number] Impression: Negative chest.
== END 2021-11-16 16:36 | disposition home or self-care (01) ==
LOC: RAD 16:36
PROVIDERS: PCP Nurse Practitioner Family; Visit Provider Nurse Practitioner Family
DX: J45.30 Mild persistent asthma, uncomplicated (principal); R07.1 Chest pain on breathing
CPT/HCPCS: 71046

== ENCOUNTER 2021-12-03 02:44 | Emergency (ER) | payer SELFPAY ==
[2021-12-03 02:56] VITALS: BP 143/84; PULSE 88; RESP 16; TEMP 36.6; O2SAT 92; BMI 41.5
[2021-12-03 02:59] VITALS: BP 143/84; PULSE 77; RESP 20; O2SAT 93
--- NOTE | 2021-12-03 03:23 | XRR_ITS ---
PROCEDURE INFORMATION: Exam: XR Chest Exam date and time: 12/03/2021 3:42 AM Age: 41 years old Clinical indication: Dyspnea; Additional info: SOB TECHNIQUE: Imaging protocol: XR of the chest. Views: 1 view. COMPARISON: CR XR chest 2V* [id number] 11/16/2021 4:57 PM FINDINGS: Lungs: No focal airspace disease. Pleural spaces: Unremarkable. No pleural effusion. No pneumothorax. Heart/Mediastinum: Cardiomediastinal silhouette is within normal limits. Bones/joints: Unremarkable. XR/XR chest 1V portable [id number] IMPRESSION: No acute cardiopulmonary abnormality.
[2021-12-03] MEDS: ipratropium-albuterol 3 mL Neb INHALATION (03:42)
[2021-12-03 03:43] VITALS: PULSE 83; RESP 18; O2SAT 92
[2021-12-03] MEDS: doxycycline 100 mg Tablet PO (03:52)
[2021-12-03 04:25] VITALS: BP 138/82; PULSE 80; RESP 20; O2SAT 93
--- NOTE | 2021-12-03 04:27 | W.ED.SOB ---
HPI - SOB/Dyspnea General: Chief Complaint: Shortness of Breath/Dyspnea Stated Complaint: Asthma/SOB Time Seen by Provider: 12/03/21 03:19 Source: patient History of Present Illness: HPI Narrative: 41-year-old female with a history of asthma. She presents with worsening shortness of breath over the last 24 hours or so. She says she has been wheezing, coughing, productive of some sputum. No fever. She does note she has had some mild swelling to the lower extremities. She denies . MD elicited complaint: shortness of breath Pertinent past history: asthma Onset (ago): day(s) Timing: constant and progressively worsening Severity: moderate Exacerbating factors: exertion Relieving factors: bronchodilators Known history of: asthma Associated symptoms: Reports chest congestion, cough and nausea; Deny abdominal pain, chest pain, fever(s), hemoptysis, orthopnea, syncope or vomiting Treatment prior to arrival: bronchodilator Review of Systems Const: Denies: fever(s) ENMT: Denies: throat pain Card: Denies: chest pain, syncope or orthopnea Resp: Reports: dyspnea, productive cough and chest congestion; Denies: hemoptysis GI: Reports: nausea; Denies: abdominal pain or vomiting PFS ED PFSH: Medical History (Updated 12/03/21 @ 04:36 by Brian Whitt DO) Essential hypertension Diagnosed in February 2020 being managed by PMD. 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 PCP: KELLY Ceuto Surgical History Status post cholecystectomy 1999--laparoscopic procedure Status post tubal ligation 2007--laparoscopic procedure Family History Grandmother Breast cancer maternal, age at diagnosis unknown Denies family history of Colon cancer Ovarian cancer Diabetes Heart disease Hyperlipidemia Anesthesia complication Bleeding disorder Hypertension Uterine cancer Thyroid condition Stroke Social History Smoking and tobacco status: current every day smoker cigarettes Packs smoked per day: 0.5 Second hand smoke exposure: No Alcohol intake: never Desire information about substance/drug rehabilitation?: No Counseling given: Yes Adopted: No Caregiver/support person: No Lives independently: Yes Household members: children Housing: House Marital status: Single Current occupational status: employed History of recent travel: Yes (Returned on 04/16/21) Details: [place], [place] Out of country: [place] Physical Exam Const: GENERAL APPEARANCE: cooperative, in distress (mild resp) and ill appearing (mild) HENMT: COMMON NORMALS: normocephalic and atraumatic HEAD & SCALP: normocephalic and atraumatic FACE & SINUS: normal facial exam Eye: COMMON NORMALS: Equal, round and reactive pupils present and EOMs intact bilaterally PUPIL: Yes Equal, round and reactive pupils present Chest: COMMONS NORMALS: normal inspection of the chest Resp: COMMON NORMALS: No use of accessory muscles EFFORT & INSPECTION: Yes tachypneic AUSCULTATION: wheezes expiratory wheezes and scattered wheezes Cardio: COMMON NORMALS: regular rate and regular rhythm RATE: regular rate RHYTHM: regular rhythm GI: COMMON NORMALS: Normal to inspection, nondistended, normoactive bowel sounds present and Soft to palpation PALPATION: Yes Soft to palpation Extremity: GENERAL: Yes edema (trace) Neuro: TIA COMA SCALE: document GCS findings [place] coma scale eye opening: Spontaneous Tia coma scale verbal response: None Course Vital Signs: Vital signs: Vital Signs Temperature 97.8 F 12/03/21 02:56 Pulse Rate 80 12/03/21 04:25 Respiratory Rate 20 H 12/03/21 04:25 Blood Pressure 138/82 12/03/21 04:25 Pulse Oximetry 93 12/03/21 04:25 MDM - SOB/Dyspnea Medical Decision Making Initially oxygen saturations were 89 to 90%. Patient was given DuoNeb treatment, an injection of Solu-Medrol. Saturations currently 93%. She is breathing easier. She would like to go home. Chest x-ray is negative. She is swabbed for COVID-19 amongst other viruses. We will prescribe her a burst of steroid as well as antibiotic coverage and ipratropium to combine with her albuterol. Discharge Plan Discharge Patient Disposition: Home Clinical Impression: Asthma with exacerbation Condition: Stable Prescriptions: New prednisone 20 mg tablet 60 mg PO DAILY Qty: 15 0RF Continued doxycycline hyclate 100 mg capsule 100 mg PO BID Qty: 20 0RF albuterol sulfate 2.5 mg /3 mL (0.083 %) solution for nebulization 2.5 mg INHALATION Q4H PRN (Reason: shortness of breath or wheezing) 30 Days Qty: 180 11RF Rx Instructions: 340B, please ipratropium bromide 0.02 % solution 2.5 ml INHALATION Q4H PRN (Reason: shortness of breath or wheezing) Qty: 62.5 0RF Discontinued prednisone 10 mg tablets,dose pack See Rx Instructions PO PER PKG DIR Qty: 21 0RF Rx Instructions: PO PER PKG DIR No Action terconazole 0.8 % cream 5 g vaginal DAILY 3 Days Qty: 20 0RF Mirena 20 mcg/24 hours (5 yrs) 52 mg intrauterine device 1 device INTRAUTERI .every 5 years Qty: 1 0RF acyclovir 400 mg tablet 400 mg PO TID 7 Days Qty: 21 0RF albuterol sulfate [ProAir HFA] 90 mcg/actuation HFA aerosol inhaler 2 puff INHALATION QID PRN (Reason: shortness of breath or wheezing) 30 Days Qty: 6.7 11RF Rx Instructions: 340B, please fluticasone propion-salmeterol [Advair Diskus] 250-50 mcg/dose blister with device 1 inh INHALATION BID 30 Days Qty: 60 11RF Rx Instructions: 340B, please cyclobenzaprine 5 mg tablet 5 mg PO TID PRN (Reason: muscle spasm) Qty: 10 0RF Discharge Orders: Discharge ED (Routine); Ordered 12/03/21 Ordered By: Brian Whitt Referrals: Cori Brooke FNP-C [Primary Care Provider] - 1-3 days Discharge Diet: Advance as tolerated Discharge Activity: Increase activity as tolerated Patient Instructions: Asthma Exacerbation - Adult Activity Restrictions/Additional Instructions: Combine the ipratropium with your albuterol for nebulizer, and use every 4 hours while awake for the next 48 hours, then as needed. Other medications as directed. Return for worsening shortness of breath despite treatment, fever greater than 100 despite 2-3 doses of antibiotics, any other concerning symptoms. Coding Level of Care Code ED Tape Edge Machine Operator for Machelle Larios
[2021-12-03 06:03] LABS: Adenovirus Not Detected (NOT DETECT); Chlamydia Pneumoniae Not Detected (NOT DETECT); Coronavirus 229E,HKU1,NL63,OC4 Not Detected (NOT DETECT); Human Metapneumovirus Not Detected (NOT DETECT); Human Rhinovirus/Enterovirus Detected (NOT DETECT); Influenza A Not Detected (NOT DETECT); Influenza A H1 Not Detected (NOT DETECT); Influenza A H1-2009 Not Detected (NOT DETECT); Influenza A H3 Not Detected (NOT DETECT); Influenza B Not Detected (NOT DETECT); Mycoplasma Pneumoniae Not Detected (NOT DETECT); Parainfluenza Virus Type 1 Not Detected (NOT DETECT); Parainfluenza Virus Type 2 Not Detected (NOT DETECT); Parainfluenza Virus Type 3 Not Detected (NOT DETECT); Parainfluenza Virus Type 4 Not Detected (NOT DETECT); Respiratory Syncytial Virus A Not Detected (NOT DETECT); Respiratory Syncytial Virus B Not Detected (NOT DETECT); SARS-COV-2 Not Detected (NOT DETECT)
[2021-12-03 06:12] LABS: Human Metapneumovirus Not Detected (NOT DETECT); Human Rhinovirus/Enterovirus Detected (NOT DETECT); Results from Genmark
== END 2021-12-03 05:09 | disposition home or self-care (01) ==
PROVIDERS: Emergency Provider Emergency Medicine; PCP Nurse Practitioner Family
DX: J45.901 Unspecified asthma with (acute) exacerbation (principal); I10 Essential (primary) hypertension; F17.210 Nicotine dependence, cigarettes, uncomplicated; Z20.822 Contact with and (suspected) exposure to COVID-19
CPT/HCPCS: 71045; 87635; 87801; 94640; 96372; 99283; J2930

== ENCOUNTER → 2021-12-20 10:01 | Outpatient (BNVA) | payer SELFPAY | PROVIDERS: PCP Nurse Practitioner Family; Visit Provider Nurse Practitioner Family | DX: J45.901 Unspecified asthma with (acute) exacerbation (principal) | CPT/HCPCS: 71046 ==

== ENCOUNTER → 2021-12-25 15:05 | Outpatient (BNVA) | payer SELFPAY | PROVIDERS: PCP Nurse Practitioner Family; Visit Provider Internal Medicine Critical Care Medicine | DX: R06.02 Shortness of breath (principal); J45.50 Severe persistent asthma, uncomplicated; F17.200 Nicotine dependence, unspecified, uncomplicated | CPT/HCPCS: 82785; 86003 ==

== ENCOUNTER 2022-01-19 12:04 | Emergency (ER) | payer SELFPAY ==
[2022-01-19 12:26] VITALS: BP 138/87; PULSE 84; RESP 18; TEMP 36.7; O2SAT 98; BMI 42.0
--- NOTE | 2022-01-19 13:13 | ED_ITS ---
HPI - Female Genitourinary General: Chief complaint: Vaginal Bleeding Stated complaint: passing large blood clot Time Seen by Provider: 01/19/22 12:45 Source: patient Mode of arrival: ambulatory History of Present Illness: 41-year-old female presents emergency room with irregular bleeding. Patient states she has had bleeding for the last couple of weeks intermittently. Time she passes clots she will have cramping. She has maldonado d test which were negative she reports. She denies any lightheadedness dizziness or shortness of breath. MD elicited complaint: vaginal bleeding Onset (ago): week(s) Severity: moderate Quality of pain: cramping Consistency: intermittent Vaginal bleeding: heavy and clots Exacerbating factors: none Relieving factors: none Associated symptoms: Reports vaginal bleeding; Deny abdominal pain, short of breath, fevers/chills, headache(s), nausea, rash, seizures, syncope, vaginal discharge or weakness Review of Systems Const: Denies: fever(s), chills, body aches, change in appetite, fatigue or malaise ENMT: Denies: throat pain, ear or mastoid pain, nasal discharge or nasal congestion Card: Denies: syncope Resp: Denies: dyspnea, productive cough or non-productive cough GI: Denies: abdominal pain or nausea : Denies: vaginal discharge Skin/Breast: Denies: rash or pruritus Neuro: Denies: headache(s) PFSH ED PFSH: Medical History Essential hypertension Diagnosed in February 2020 being managed by PMD. 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 PCP: KELLY Cueto Surgical History Status post cholecystectomy 1999--laparoscopic procedure Status post tubal ligation 2007--laparoscopic procedure Family History Grandmother Breast cancer maternal, age at diagnosis unknown Denies family history of Colon cancer Ovarian cancer Diabetes Heart disease Hyperlipidemia Anesthesia complication Bleeding disorder Hypertension Uterine cancer Thyroid condition Stroke Social History Smoking and tobacco status: current every day smoker (Currently 0.5 ppd) cigarettes Packs smoked per day: 1 Years cigarettes smoked: 25 [ Other cigarette details: started at age 16 years.] Second hand smoke exposure: No Alcohol intake: never Desire information about substance/drug rehabilitation?: No Counseling given: Yes Adopted: No Caregiver/support person: No Lives independently: Yes Household members: children Housing: House Marital status: Single Current occupational status: employed History of recent travel: Yes (Returned on 04/16/21) Details: [place], [place] Out of country: Yes Physical Exam Const: COMMON NORMALS: no acute distress GENERAL APPEARANCE: cooperative and comfortable ORIENTATION/CONSCIOUSNESS: Yes awake, Yes oriented to person, Yes oriented to place and Yes oriented to time HENMT: COMMON NORMALS: normocephalic, atraumatic and hearing grossly normal b ilaterally HEAD & SCALP: normocephalic and atraumatic Neck/C-Spine: COMMON NORMALS: no JVD Resp: COMMON NORMALS: normal respiratory effort, No retractions, No use of accessory muscles and clear to auscultation bilaterally AUSCULTATION: clear to auscultation bilaterally Cardio: COMMON NORMALS: no JVD, regular rate, regular rhythm and No murmurs present (Cardio) RATE: regular rate RHYTHM: regular rhythm GI: COMMON NORMALS: Soft to palpation and No hepatosplenomegaly present AUSCULTATION: Yes normoactive bowel sounds PALPATION: Yes Soft to palpation, No Tenderness to palpation present (GI), No Guarding due to palpation present (GI) and Yes No hepatosplenomegaly present : SPECULUM EXAM - VAGINA: Yes vaginal bleeding OB/EXTERNAL & SPECULUM: vaginal bleeding Extremity: COMMON NORMALS: normal to inspection, capillary refill normal, no clubbing, cyanosis or edema, no calf tenderness and no pedal edema Neuro: SENSORIUM/ORIENTATION: Yes oriented to person, Yes oriented to place and Yes oriented to time Skin: COMMON NORMALS: no rashes or lesions noted GENERAL SKIN EXAM: no rashes or lesions noted Course Vital Signs: Vital signs: Vital Signs Temperature 98.1 F 01/19/22 12:26 Pulse Rate 64 01/19/22 15:39 Respiratory Rate 20 H 01/19/22 15:39 Blood Pressure 126/88 01/19/22 15:39 Pulse Oximetry 98 01/19/22 15:39 MDM - Female Medical Decision Making Hemoglobin stable. Long discussion with the patient. Offer the option of doing medroxyprogesterone however warned her that if we did do this at the end of that course of medroxyprogesterone she would again have heavy bleeding. She states her symptoms have waxed and waned she did rather not have a planned episode of heavy bleeding. Ultimately she opted not to go with the medroxyprogesterone. For now she can continue just monitoring she has an appointment set up with [facility] should follow-up with them as soon as she is able. Medical Records I reviewed the patient's medical records. Lab Data I reviewed the patient's lab results. : 01/19/22 13:59 01/19/22 13:59 Laboratory Results WBC 10.2 10^3/uL (4.0-10.0) H 01/19/22 13:59 RBC 4.01 10^6/uL (4.1-5.3) L 01/19/22 13:59 Hgb 12.0 g/dL (11.5-15.3) 01/19/22 13:59 Hct 36.4 % (37.0-47.0) L 01/19/22 13:59 MCV 90.8 fl (81-99) 01/19/22 13:59 MCH 29.9 pg (28.0-34.0) 01/19/22 13:59 MCHC 33.0 g/dL (30.0-36.0) 01/19/22 13:59 RDW 14.7 % (12.1-15.1) 01/19/22 13:59 Plt Count 248 10^3/cmm (130-400) 01/19/22 13:59 MPV 11.0 fL (7.4-10.4) H 01/19/22 13:59 Neut % (Auto) 61.1 % 01/19/22 13:59 Lymph % (Auto) 28.8 % 01/19/22 13:59 [place] % (Auto) 6.7 % 01/19/22 13:59 Eos % (Auto) 2.5 % 01/19/22 13:59 Baso % (Auto) 0.4 % 01/19/22 13:59 Neut # (Auto) 6.23 10^3/uL (1.8-7.7) 01/19/22 13:59 Lymph # (Auto) 2.9 10^3/uL (0.8-4.8) 01/19/22 13:59 [place] # (Auto) 0.7 10^3/uL (0.2-0.9) 01/19/22 13:59 Eos # (Auto) 0.3 10^3/uL (0.0-0.8) 01/19/22 13:59 Baso # (Auto) 0.0 10^3/uL (0.0-0.1) 01/19/22 13:59 Nucleated RBC % (auto) 0 % 01/19/22 13:59 Nucleated RBCs # 0.0 /100WBC 01/19/22 13:59 Sodium 139 mmol/L (136-145) 01/19/22 13:59 Potassium 3.6 mmol/L (3.5-5.1) 01/19/22 13:59 Chloride 105 mmol/L (98-107) 01/19/22 13:59 Carbon Dioxide 25 mmol/L (22-29) 01/19/22 13:59 Anion Gap 12.6 (5-19) 01/19/22 13:59 BUN 3 mg/dL (6-20) L 01/19/22 13:59 Creatinine 0.7 mg/dL (0.5-0.9) 01/19/22 13:59 GFR Calculation 92.2 mL/min (90-130) 01/19/22 13:59 Glucose 83 mg/dL (65-115) 01/19/22 13:59 Calculated Osmolality 284 mOsm/kg (285-295) L 01/19/22 13:59 Calcium 9.1 mg/dL (8.5-10.5) 01/19/22 13:59 Total Bilirubin 0.3 mg/dL (0.15-1.2) 01/19/22 13:59 AST 63 U/L (0-32) H 01/19/22 13:59 ALT 95 U/L (0-33) H 01/19/22 13:59 Alkaline Phosphatase 79 IU/L (35-105) 01/19/22 13:59 Total Protein 7.1 g/dL (6.6-8.7) 01/19/22 13:59 Albumin 3.8 g/dL (3.5-5.2) 01/19/22 13:59 Globulin 3.3 g/dL (1.3-4.6) 01/19/22 13:59 HCG, Qual Negative (Negative) 01/19/22 13:59 Discharge Plan Discharge Patient Disposition: Home Clinical Impression: Menometrorrhagia Condition: Stable Prescriptions: No Action terconazole 0.8 % cream 5 g vaginal DAILY 3 Days Qty: 20 0RF montelukast [Singulair] 10 mg tablet 10 mg PO DAILY 30 Days Qty: 30 3RF prednisone 10 mg tablet 10 mg PO .COMPLEX 10 Days Qty: 15 0RF Rx Instructions: 10 mg PO 20 mg daily for 5 days, 10 mg daily for 5 days; prednisone 10 mg tablets,dose pack See Rx Instructions PO PER PKG DIR Qty: 21 0RF Rx Instructions: PO PER PKG DIR albuterol sulfate 2.5 mg /3 mL (0.083 %) solution for nebulization 2.5 mg INHALATION Q4H PRN (Reason: shortness of breath or wheezing) 30 Days Qty: 180 11RF Rx Instructions: 340B, please albuterol sulfate [ProAir HFA] 90 mcg/actuation HFA aerosol inhaler 2 puff INHALATION QID PRN (Reason: shortness of breath or wheezing) 30 Days Qty: 6.7 11RF Rx Instructions: 340B, please Spiriva with HandiHaler 18 mcg capsule, w/inhalation device 1 cap inhalation DAILY 30 Days Qty: 60 3RF Rx Instructions: puncture 1 cap using device; one dose = 2 inhalations budesonide-formoterol [Symbicort] 160-4.5 mcg/actuation HFA aerosol inhaler 2 puff inhalation BID 30 Days Qty: 10.2 4RF cyclobenzaprine 5 mg tablet 5 mg PO TID PRN (Reason: muscle spasm) Qty: 10 0RF ipratropium bromide 0.02 % solution 2.5 ml INHALATION Q4H PRN (Reason: shortness of breath or wheezing) Qty: 62.5 0RF Discharge Orders: Discharge ED (Routine); Ordered 01/19/22 Ordered By: Tha Patel Referrals: Cori Brooke FNP-C [Primary Care Provider] - Discharge Diet: Usual diet Discharge Activity: Resume usual activity Patient Instructions: Opioid Safety Activity Restrictions/Additional Instructions: Follow-up with gynecology as previously scheduled Coding Level of Care Code ED Software Deployment Engineer for Machelle Larios
[2022-01-19 14:04] LABS: Basophils % 0.4 %; Eosinophils # 0.3 10^3/uL (0.0-0.8); Eosinophils % 2.5 %; Hematocrit 36.4 % (37.0-47.0); Lymphocytes # 2.9 10^3/uL (0.8-4.8); Lymphocytes % 28.8 %; Mean Corpuscular Hemoglobin 29.9 pg (28.0-34.0); Mean Corpuscular Volume 90.8 fl (81-99); Monocytes # 0.7 10^3/uL (0.2-0.9); Monocytes % 6.7 %; Neutrophils # 6.23 10^3/uL (1.8-7.7); Neutrophils % 61.1 %; Nucleated Red Blood Cells % 0 %; Platelet Count 248 10^3/cmm (130-400); Red Blood Count 4.01 10^6/uL (4.1-5.3); Red Cell Distribution Width 14.7 % (12.1-15.1); White Blood Count 10.2 10^3/uL (4.0-10.0)
[2022-01-19 14:24] LABS: Alanine Aminotransferase 95 U/L (0-33); Albumin Level 3.8 g/dL (3.5-5.2); Alkaline Phosphatase 79 IU/L (35-105); Anion Gap 12.6 (5-19); Aspartate Amino Transferase 63 U/L (0-32); Blood Urea Nitrogen 3 mg/dL (6-20); Calcium 9.1 mg/dL (8.5-10.5); Carbon Dioxide 25 mmol/L (22-29); Chloride 105 mmol/L (98-107); Globulin 3.3 g/dL (1.3-4.6); Glomerular Filtration Rate 92.2 mL/min (90-130); Glucose 83 mg/dL (65-115); Osmolality Calculated 284 mOsm/kg (285-295); Potassium 3.6 mmol/L (3.5-5.1); Sodium 139 mmol/L (136-145); Total Bilirubin 0.3 mg/dL (0.15-1.2); Total Protein 7.1 g/dL (6.6-8.7)
[2022-01-19 14:31] LABS: HCG, Serum Qual Negative (Negative)
[2022-01-19 15:39] VITALS: BP 126/88; PULSE 64; RESP 20; O2SAT 98
== END 2022-01-19 15:41 | disposition home or self-care (01) ==
PROVIDERS: Emergency Provider Family Medicine; PCP Nurse Practitioner Family
DX: N92.1 Excessive and frequent menstruation with irregular cycle (principal)
CPT/HCPCS: 36415; 80053; 84703; 85025; 99282

== ENCOUNTER → 2022-02-16 10:17 | Outpatient (BNVA) | payer SELFPAY | PROVIDERS: PCP Nurse Practitioner Family; Visit Provider Family Medicine | DX: N93.9 Abnormal uterine and vaginal bleeding, unspecified (principal) | CPT/HCPCS: 82728; 83550; 85025; 85045 ==

== ENCOUNTER → 2022-02-28 13:50 | Outpatient (BNVA) | payer SELFPAY | PROVIDERS: PCP Nurse Practitioner Family; Visit Provider Obstetrics & Gynecology | DX: N93.9 Abnormal uterine and vaginal bleeding, unspecified (principal) | CPT/HCPCS: 88305 ==

== ENCOUNTER 2022-03-01 10:38 | Outpatient (CLI) | payer SELFPAY ==
--- NOTE | 2022-03-01 10:50 | MM_ITS ---
WS: [id number] VIEWS: MLO and CC views both breasts. 3D digital tomosynthesis is also included in this exam. Comparison made with prior exam of 07/15/2012, 06/27/2016, 06/03/2020.. Findings: There was no sign of mass, architectural distortion or suspicious calcification in either breast. Sc attered fibroglandular densities MM/[place] [id number] Impression: BI-RADS: 2-Benign FOLLOW-UP: 1 Year Follow-up This mammogram was also analyzed by the Computer Aided Detection System R2 Imag e Counter Tacker.
== END 2022-03-01 10:39 | disposition home or self-care (01) ==
LOC: RAD 10:40
PROVIDERS: PCP Nurse Practitioner Family; Visit Provider Nurse Practitioner Family
DX: Z13.9 Encounter for screening, unspecified (principal)
CPT/HCPCS: 77063; 77067

== ENCOUNTER 2022-03-05 | Outpatient (CLI) | payer SELFPAY | END 2022-03-05 23:59 | disposition home or self-care (01) | LOC: RAD 04-09 15:59 | PROVIDERS: PCP Nurse Practitioner Family; Visit Provider Obstetrics & Gynecology | DX: N93.9 Abnormal uterine and vaginal bleeding, unspecified (principal) | CPT/HCPCS: 84443; 84702 ==

== ENCOUNTER → 2022-03-14 11:44 | Outpatient (BNVA) | payer SELFPAY | PROVIDERS: PCP Nurse Practitioner Family; Visit Provider Obstetrics & Gynecology | DX: R10.2 Pelvic and perineal pain (principal) | CPT/HCPCS: 76830 ==

== ENCOUNTER 2022-03-27 16:00 | Observation (INO) | payer SELFPAY ==
[2022-03-26 10:12] VITALS: BMI 40.3
[2022-03-27] VITALS (15 sets, daily range): BP systolic 124–162; BP diastolic 74–95; PULSE 61–79; RESP 13–18; TEMP 36.2–37.3; O2SAT 93–100; BMI 40.3
[2022-03-27 10:29] LABS: OR HCG Qualitative Urine Negative (Negative)
--- NOTE | 2022-03-27 10:43 | ANES.PREANE2 ---
Pre-Anesthetic Assessment Height/Weight: Height 1.63 m Weight 106.594 kg Temp Pulse Resp BP Pulse Ox 97.2 F L 70 17 146/95 100 03/27/22 10:16 03/27/22 10:16 03/27/22 10:16 03/27/22 10:16 03/27/22 10:16 Preop Diagnosis: abnormal uterine bleeding. thickened endometrium, anemia Operation Date: 03/27/22 11:35 Proposed Procedures p Laparoscopic assisted vaginal hysterectomy with bilateral salpingectomy 36438,N93.9(Not Applicable) - Kylie Gonzalez MD s Laparoscopic Salpingectomy(Bilateral) - Kylie Gonzalez MD Familial anesthetic complications: none Was Beta Karson taken within 24 hours: N/A Was Clonidine taken within 24 hours: N/A Last intake: Intake Last Liquid Date 03/26/22 Last Liquid Time 22:30 Last Solid Date 03/26/22 Last Solid Time 22:30 Social Tobacco and No alcohol Exam alert, oriented x 3 and regular rate & rhythm Airway Submandibular: within normal limits Cervical ROM: within normal limits Mallampati: Class II Dentition: false Pulmonary Chronic Obstructive Pulmonary Disease CV/HEM Anemia and Hypertension Metabolic Morbid Obesity Anesthetic Plan ASA status: 3 Anesthesia: General Medications/Allergies Home Medications Medication Instructions Recorded Confirmed Last Taken Type albuterol sulfate 90 mcg/actuation 2 puff INHALATION QID PRN 30 Days 06/22/21 03/27/22 03/27/22 03:00 Rx aerosol inhaler (ProAir HFA) #6.7 gm albuterol sulfate 2.5 mg (3 mL) INHALATION Q4H PRN 12/20/21 03/27/22 Unknown Rx 30 Days #180 ml budesonide-formoterol HFA 160 2 puff INHALATION BID 30 Days 12/29/21 03/27/22 03/25/22 Rx mcg-4.5 mcg/actuation aerosol #10.2 g inhaler (Symbicort) ferrous sulfate 325 mg (65 mg 325 mg PO DAILY #90 tab 02/21/22 03/27/22 03/25/22 Rx iron) tablet Allergies Allergy/AdvReac Type Severity Reaction Status Date / Time diphenhydramine Allergy ALGY-Difficulty Verified 03/27/22 10:19 [From Benadryl] Breathing codeine AdvReac ADR-Nausea Verified 03/27/22 10:19 hydrocodone [From Vicodin] AdvReac ADR-Nausea Verified 03/27/22 10:19 [facility] Anesthesia Medical History Essential hypertension Diagnosed in February 2020 being managed by PMD. 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 a pc support specialist No pertinent past medical history Denies: thyroid problems, diabetes, seizure disorders, DVT/PE. PCP: KELLY Cueto Surgical History Status post cholecystectomy 1999--laparoscopic procedure Status post tubal ligation 2007--laparoscopic procedure Family History Grandmother Breast cancer maternal, age at diagnosis unknown Denies family history of Colon cancer Ovarian cancer Diabetes Heart disease Hyperlipidemia Anesthesia complication Bleeding disorder Hypertension Uterine cancer Thyroid condition Stroke Female Reproductive History Date of last menstrual period: 01/02/22 Data Anesthesia Cardiac Studies: No Data to Display
[2022-03-27] MEDS: sodium chloride 0.9% 1,000 ML 30 ML IV (10:56)
[2022-03-27] MEDS: acetaminophen 1,000 MG/100 ML PIGGYBACK 400 MG IV (10:57)
[2022-03-27] MEDS: CELEcoxib 200 mg Capsule 400 MG PO (10:57)
[2022-03-27] MEDS: phenazopyridine 100 mg Tablet 200 MG PO (10:58)
[2022-03-27] MEDS: gabapentin 300 mg Capsule PO (10:58)
[2022-03-27] MEDS: ketorolac 30 mg/mL INJ IVP ×3 (10:59→21:31)
[2022-03-27 11:00] LABS: Basophils % 0.4 %; Eosinophils # 0.3 10^3/uL (0.0-0.8); Eosinophils % 3.2 %; Hematocrit 43.8 % (37.0-47.0); Hemoglobin 13.6 g/dL (11.5-15.3); Lymphocytes # 3.3 10^3/uL (0.8-4.8); Mean Corpuscular HGB Conc 31.1 g/dL (30.0-36.0); Mean Corpuscular Volume 86.9 fl (81-99); Mean Platelet Volume 11.4 fL (7.4-10.4); Monocytes # 0.6 10^3/uL (0.2-0.9); Monocytes % 6.9 %; Neutrophils # 4.95 10^3/uL (1.8-7.7); Neutrophils % 53.3 %; Nucleated Red Blood Cells % 0 %; Platelet Count 262 10^3/cmm (130-400); Red Blood Count 5.04 10^6/uL (4.1-5.3); Red Cell Distribution Width 13.6 % (12.1-15.1); White Blood Count 9.3 10^3/uL (4.0-10.0)
[2022-03-27] MEDS: scopolamine 1.5 Patch 1 PATCH TRANSDERMA (11:00)
[2022-03-27 11:31] LABS: Blood Urea Nitrogen 5 mg/dL (6-20); Calcium 9.1 mg/dL (8.5-10.5); Carbon Dioxide 21 mmol/L (22-29); Chloride 105 mmol/L (98-107); Creatinine Clr Calc Pharmacy 125.9872; Glomerular Filtration Rate 92.2 mL/min (90-130); Glucose 87 mg/dL (65-115); Osmolality Calculated 285 mOsm/kg (285-295); Sodium 139 mmol/L (136-145)
[2022-03-27 11:34] LABS: Anion Gap 17.5 (5-19); Potassium 4.5 mmol/L (3.5-5.1)
[2022-03-27] MEDS: ceFOXitin 2,000 MG in sodium chloride 0.9% (plus) 50 ML 100 MG IV (12:53)
--- NOTE | 2022-03-27 13:03 | W.PM.OPSUD ---
Surgery/Procedure H&P Update DATE OF PROCEDURE: March 27, 2022 DATE H&P PERFORMED: 03/16/22 H&P UPDATE INFORMATION: I have reviewed H&P completed within last 30 days, I have examined patient prior to procedure and No changes to prior documentation PREOP DIAGNOSIS: abnormal uterine bleeding. thickened endometrium, anemia PLANNED PROCEDURE: Operation Date: 03/27/22 11:35 Proposed Procedures p Laparoscopic assisted vaginal hysterectomy with bilateral salpingectomy 78131,N93.9(Not Applicable) - Kylie Gonzalez MD s Laparoscopic Salpingectomy(Bilateral) - Kylie Gonzalez MD Related Problem List Diagnoses (1) Thickened endometrium: (2) Iron deficiency anemia:
[2022-03-27] MEDS: vasopressin 20 unit/mL INJ INJECTION (13:49)
--- NOTE | 2022-03-27 15:32 | P.OP_ITS ---
Operative Report Date of procedure: March 27, 2022 Pre-op diagnosis: Preop Diagnosis abnormal uterine bleeding. thickened endometrium , anemia Post-op diagnosis: same Procedure done: LAVH, bilateral salpingectomy Specimens removed/disposition: uterus, bilateral fallopian tubes to pathology Surgeon: Kylie Gonzalez Anesthesia: General Estimated blood loss (mL): 300 IV fluids (mL): 1,600 Urine output (mL): 100 Complications: none Findings: 10 week sized uterus. Normal appearing tubes and ovaries Condition: stable Disposition: PACU Procedure: The patient was taken to the operating room where general anesthesia was administered and found to be adequate. She was prepped and draped in the normal sterile fashion in the dorsal lithotomy position in [facility]. A Chandler catheter was placed. A weighted speculum was placed into the vagina and the anterior lip of the cervix was grasped with a single tooth tenaculum. The Zumi uterine manipulator was placed. The weighted speculum was removed. The gloves were changed and attention was turned to the abdomen. A 5 mm supraumbilical incision was made. Using a 5 mm port with the camera, the port was placed into the abdomen. The abdomen was insufflated. Two low, lateral 5 mm ports were placed on the left and right under direct visualization from the camera. The right tube was grasped and elevated. Using the laparoscopic cautery, the mesosalpinx was divided between the ovary and tube. The tube was removed. This was performed the same way on the left. The uteroovarian ligaments as well as the round ligaments were ligated. Attention was then turned to the vaginal portion of the procedure. The weighted speculum was placed into the vagina. The zumi manipulator was removed. The single tooth tenaculum was removed and replaced with the trina's tenaculum. 10 mL of dilute Pitressin was injected at the vesicovaginal junction. A circumferential incision was made at the vesicovaginal junction and the vaginal mucosa reflected cephalad. The posterior peritoneum was entered sharply with the Metzenbaum scissors and the long weighted speculum replaced. Using the Preston clamps the uterosacral ligaments were clamped cut and suture- ligated. The anterior peritoneum was entered sharply with the metzenbaum scissors. Then sequentially the uterine arteries and cardinal ligaments were clamped cut and suture-ligated. A single-tooth tenaculum was used to deliver the uterus. The remaining segement of the utero-ovarian ligaments were clamped cut and suture-ligated bilaterally and the specimen was removed. There was good hemostasis with only mild bleeding from the cuff. The peritoneum was closed with a pursestring using 2-0 Vicryl. The vaginal cuff was closed with 0 Vicryl in a running locked pattern incorporating the uterosacral ligaments into the lateral aspects of the vaginal cuff. The Chandler catheter was removed and the cystoscope advanced into the bladder. The patient was given pyridium and bilateral spill was noted. There were no injuries or deficits noted in the bladder. The cystoscope was removed and the Chandler was replaced. Vaginal packing was placed for good hemostasis. The gloves and gowns were changed and attention was turned to the abdomen. The ports were closed with 2-0 monocryl with skin glue. The patient tolerated the procedure well. Sponge lap and needle counts were correct x3. She was taken to the recovery room in stable condition.
--- NOTE | 2022-03-27 16:25 | ANE.PACU2 ---
Inpatient post-anesthesia follow up: Airway intact: Yes Vital signs: Temperature 98.0 F Pulse Rate 66 Respiratory Rate 16 Blood Pressure 153/91 Pulse Oximetry 93 Oxygen Delivery Me thod Room Air Oxygen Flow Rate 10 Fraction of Inspir ed Oxygen Hydration adequate: Yes Nausea and vomiting: No Pain level: 3 Mental status: Baseline
[2022-03-28] MEDS: HYDROcodone-acetaminophen 5-325 mg Tablet PO ×2 (00:07→11:15)
[2022-03-28] MEDS: lactated ringers 1,000 ML 125 ML IV (00:08)
[2022-03-28] MEDS: ceFAZolin 2,000 MG in sodium chloride 0.9% (plus) 50 ML 100 MG IV (03:53)
[2022-03-28] MEDS: ketorolac 30 mg/mL INJ IVP (03:53)
[2022-03-28 04:03] VITALS: BP 125/73; PULSE 61; RESP 16; TEMP 36.8; O2SAT 96
--- NOTE | 2022-03-28 05:00 | PC.NURSE ---
Packing removed at this time. Patient tolerated well.
[2022-03-28 06:24] LABS: Hematocrit 38.6 % (37.0-47.0); Hemoglobin 12.2 g/dL (11.5-15.3); Mean Corpuscular HGB Conc 31.6 g/dL (30.0-36.0); Mean Corpuscular Hemoglobin 26.8 pg (28.0-34.0); Mean Corpuscular Volume 84.8 fl (81-99); Mean Platelet Volume 11.2 fL (7.4-10.4); Platelet Count 281 10^3/cmm (130-400); Red Blood Count 4.55 10^6/uL (4.1-5.3); Red Cell Distribution Width 13.3 % (12.1-15.1)
--- NOTE | 2022-03-28 08:30 | PC.NURSE ---
Patient up to ambulate OBGYN floor. Tolerates activity well. AR RN
--- NOTE | 2022-03-28 09:43 | PM.MISC ---
Miscellaneous Note Note: Patient complaining of Right Eye irritation/foreign sensation. Stated it began yesterday evening after she woke up at around 5 pm. Mild erythema and tearing. Sometimes mildly blurry vision. Unable to visualize any corneal abrasion or foreign object upon exam with light.Possible corneal abrasion, so will treat with prophylactic erythmocyin ointment QID for 5 days. patient instructed that if symptoms persist or worsen for another day or two to call her PCP for appointment, where they might be able to do fluorescein dye or refer her to opthalmologist.
--- NOTE | 2022-03-28 09:52 | PM.DCS ---
Discharge Providers Date of Admission: 03/27/22 16:00 Date of Discharge: March 28, 2022 Attending Provider at Admission: Kylie Gonzalez MD Attending Provider at Discharge: Kylie Gonzalez MD Primary Care Provider: ENRRIQUE Cueto Diagnoses at Discharge Discharge Diagnosis (1) Thickened endometrium: Status: Acute (2) Iron deficiency anemia: Status: Acute Hospital Course Hospital Course The patient was admitted for surgery. She did well postoperatively and was ready for discharge on day #1. A few hours after surgery, the patient began to experience pain and swelling in her right eye. the eye was flushed and cold compresses were placed on it. It was still swollen and painful at discharge. Dr. Huang came to see the patient and prescribed some erythromycin ointment for home. Physical Exam Const: COMMON NORMALS: no acute distress, patient oriented x3, no limitations, healthy appearing, alert and well nourished GENERAL APPEARANCE: cooperative, comfortable, well kempt and well developed ORIENTATION/CONSCIOUSNESS: Yes awake, Yes oriented to person, Yes oriented to place and Yes oriented to time Resp: COMMON NORMALS: normal respiratory effort EFFORT & INSPECTION: Yes able to speak in complete sentences GI: COMMON NORMALS: Soft to palpation and non-tender PALPATION: Yes Soft to palpation Extremity: COMMON NORMALS: no calf tenderness Neuro: COMMON NORMALS: patient oriented x3 SENSORIUM/ORIENTATION: Yes alert, Yes oriented to person, Yes oriented to place and Yes oriented to time Psych: APPEARANCE: Yes well kempt Urinary Catheter Management: Chandler: Cath Placed During This Visit: yes, but has since been removed by the nurse Reason for Continuing Indwelling Catheter: Decision to DC Catheter Urinary Catheter Date of Insertion: 03/27/22 Urinary Catheter Time of Insertion: 13:25 Date Urinary Catheter Removed: 03/28/22 Time Urinary Catheter Discontinued: 05:10 Discharge Data Studies Completed and Pending Pending at discharge Category Date Time Status ES surgery / GI images Routine Exams 03/27/22 12:31 Taken Retype for Patiets ABO/Rh Routine Lab 03/27/22 12:46 Ordered Urine Culture Routine Lab 03/27/22 13:25 Results Pathology: Surgical [PTH] Routine Pth 03/27/22 15:14 Received Laboratory Results WBC 24.0 10^3/uL (4.0-10.0) H 03/28/22 06:18 RBC 4.55 10^6/uL (4.1-5.3) 03/28/22 06:18 Hgb 12.2 g/dL (11.5-15.3) 03/28/22 06:18 Hct 38.6 % (37.0-47.0) 03/28/22 06:18 MCV 84.8 fl (81-99) 03/28/22 06:18 MCH 26.8 pg (28.0-34.0) L 03/28/22 06:18 MCHC 31.6 g/dL (30.0-36.0) 03/28/22 06:18 RDW 13.3 % (12.1-15.1) 03/28/22 06:18 Plt Count 281 10^3/cmm (130-400) 03/28/22 06:18 MPV 11.2 fL (7.4-10.4) H 03/28/22 06:18 Neut % (Auto) 53.3 % 03/27/22 10:50 Lymph % (Auto) 36.0 % 03/27/22 10:50 [place] % (Auto) 6.9 % 03/27/22 10:50 Eos % (Auto) 3.2 % 03/27/22 10:50 Baso % (Auto) 0.4 % 03/27/22 10:50 Neut # (Auto) 4.95 10^3/uL (1.8-7.7) 03/27/22 10:50 Lymph # (Auto) 3.3 10^3/uL (0.8-4.8) 03/27/22 10:50 [place] # (Auto) 0.6 10^3/uL (0.2-0.9) 03/27/22 10:50 Eos # (Auto) 0.3 10^3/uL (0.0-0.8) 03/27/22 10:50 Baso # (Auto) 0.0 10^3/uL (0.0-0.1) 03/27/22 10:50 Nucleated RBC % (auto) 0 % 03/27/22 10:50 Nucleated RBCs # 0.0 /100WBC 03/27/22 10:50 Sodium 139 mmol/L (136-145) 03/27/22 10:50 Potassium 4.5 mmol/L (3.5-5.1) 03/27/22 10:50 Chloride 105 mmol/L (98-107) 03/27/22 10:50 Carbon Dioxide 21 mmol/L (22-29) L 03/27/22 10:50 Anion Gap 17.5 (5-19) 03/27/22 10:50 BUN 5 mg/dL (6-20) L 03/27/22 10:50 Creatinine 0.7 mg/dL (0.5-0.9) 03/27/22 10:50 GFR Calculation 92.2 mL/min (90-130) 03/27/22 10:50 Glucose 87 mg/dL (65-115) 03/27/22 10:50 Calculated Osmolality 285 mOsm/kg (285-295) 03/27/22 10:50 Calcium 9.1 mg/dL (8.5-10.5) 03/27/22 10:50 Urine HCG, Qual Negative (Negative) 03/27/22 10:27 Blood Type O Positive 03/27/22 10:50 Rho(D) Type Positive 03/27/22 10:50 Antibody Screen Negative 03/27/22 10:50 Vitals Last Vital Signs Temp 98.3 F 03/28/22 04:03 Pulse 61 03/28/22 04:03 Resp 16 03/28/22 04:03 BP 125/73 03/28/22 04:03 Pulse Ox 96 03/28/22 04:03 Discharge Plan Discharge Patient Disposition: Home Condition: Stable Prescriptions: New ibuprofen 800 mg Tablet 800 mg PO Q8H Qty: 30 0RF hydrocodone-acetaminophen 5-325 mg Tablet 1 tab PO Q4H PRN (Reason: Moderate To Severe Pain) Qty: 14 0RF erythromycin 5 mg/gram (0.5 %) Ointment 1 applic eye-right QID Qty: 3.5 0RF docusate sodium 100 mg Capsule 100 mg PO BID Qty: 30 0RF Continued albuterol sulfate 2.5 mg /3 mL (0.083 %) solution for nebulization 2.5 mg INHALATION Q4H PRN (Reason: shortness of breath or wheezing) 30 Days Qty: 180 11RF Rx Instructions: 340B, please albuterol sulfate [ProAir HFA] 90 mcg/actuation HFA aerosol inhaler 2 puff INHALATION QID PRN (Reason: shortness of breath or wheezing) 30 Days Qty: 6.7 11RF Rx Instructions: 340B, please budesonide-formoterol [Symbicort] 160-4.5 mcg/actuation HFA aerosol inhaler 2 puff inhalation BID 30 Days Qty: 10.2 4RF ferrous sulfate 325 mg (65 mg iron) tablet 325 mg PO DAILY Qty: 90 0RF Discharge Orders: Discharge Order (Routine); Ordered 03/28/22 Ordered By: Kylie Gonzalez Patient Instructions: Opioid Safety Discharge Attestations Time Spent in Discharge Care*: less than 30 min Quality Metrics Clinical Quality Measures [ No reported AMI, CVA or VTE this stay] Coding Level of Care Code Acute Chg FW DC note Diagnoses Thickened endometrium R93.89 Iron deficiency anemia D50.9
[2022-03-28] MEDS: erythromycin Op Oint 1 gm 1 APPLIC EYE-RIGHT (11:15)
[2022-03-28 11:31] VITALS: BP 148/82; PULSE 59; RESP 15; TEMP 36.8; O2SAT 98
== END 2022-03-28 11:20 | disposition home or self-care (01) ==
LOC: OBGYN 03-28 09:52
PROVIDERS: Anesthesiology; Admitting Provider Obstetrics & Gynecology; PCP Nurse Practitioner Family; Visit Provider Obstetrics & Gynecology
PROC: 0UT9FZZ Resection of Uterus, Via Natural or Artificial Opening With Percutaneous Endoscopic Assistance (ICD-10-PCS; CPT 58552; principal; 2022-03-27 11:25)
PROC: (CPT 58661; 2022-03-27 11:25)
DX: N93.9 Abnormal uterine and vaginal bleeding, unspecified (principal); R93.89 Abnormal findings on diagnostic imaging of other specified body structures; D50.9 Iron deficiency anemia, unspecified; J44.9 Chronic obstructive pulmonary disease, unspecified; I10 Essential (primary) hypertension; E66.01 Morbid (severe) obesity due to excess calories; Z68.41 Body mass index [BMI] 40.0-44.9, adult
CPT/HCPCS: 58552; 36415; 80048; 81025; 84703; 85025; 85027; 86850; 86900; 87086; 88307; G0378; J0694; J1100; J1170; J1200; J1885; J2250; J2405; J2704; J2710; J3010; J3490; J7030

== ENCOUNTER → 2023-04-25 15:30 | Outpatient (BNVA) | payer SELFPAY | PROVIDERS: PCP Nurse Practitioner Family; Visit Provider Nurse Practitioner Family | DX: R30.0 Dysuria (principal) | CPT/HCPCS: 81000; 87077; 87086; 87184 ==

== ENCOUNTER → 2023-04-26 10:32 | Outpatient (BNVA) | payer SELFPAY | PROVIDERS: PCP Nurse Practitioner Family; Visit Provider Nurse Practitioner Family | DX: R79.89 Other specified abnormal findings of blood chemistry (principal) | CPT/HCPCS: 80053; 80061; 83036; 84443; 85025; 86705; 86706; 86709; 86803; 87340 ==

== ENCOUNTER 2023-11-08 10:48 | Outpatient (CLI) | payer SELFPAY ==
--- NOTE | 2023-11-08 10:55 | MM_ITS ---
WS: [id number] BILATERAL SCREENING DIGITAL TOMOSYNTHESIS MAMMOGRAM WITH CAD HISTORY: Z12.39 - Encounter for other screening for malignant neop... COMPARISON: 03/01/2022, 06/03/2020 Bilateral CC and MLO views with tomosynthesis and synthetic mammography submitted. Computer aided det ection analyzed. Breast composition: There are scattered areas of fibroglandular density. No suspicious masses, microc alcifications or architectural distortion. IMPRESSION: MM/[place] [id number] BI-RADS: 1-Negative FOLLOW UP: 1 Year Follow-up
== END 2023-11-08 10:49 | disposition home or self-care (01) ==
LOC: RAD 10:49
PROVIDERS: PCP Nurse Practitioner Family; Visit Provider Nurse Practitioner Family
DX: Z12.31 Encounter for screening mammogram for malignant neoplasm of breast (principal); R92.323 Mammographic fibroglandular density, bilateral breasts
CPT/HCPCS: 77063; 77067

== ENCOUNTER 2023-11-24 20:36 | Emergency (ER) | payer SELFPAY ==
[2023-11-24] VITALS (12 sets, daily range): BP systolic 118–165; BP diastolic 60–128; PULSE 76–83; RESP 16–22; TEMP 36.4; O2SAT 95–100; BMI 43.6
[2023-11-24 21:00] LABS: Add Urine Microscopic? NO; Charge for UA Resulting for Rev
[2023-11-24 21:19] LABS: Bilirubin Urine Neg (Negative); Blood Urine Neg (Negative); Glucose Urine UA Norm (Normal); Ketones Urine Negative (Negative); Leukocyte Esterase Urine Negative (Negative); Nitrate Urine Negative (Negative); Protein Urine Neg (Negative); Specific Gravity, Urine 1.015 (1.005-1.030); Urine Appearance Clear (CLEAR); Urine Color Yellow (Yellow); Urobilinogen Urine Neg (Negative); pH Urine 5 (5-7)
--- NOTE | 2023-11-24 21:30 | ED_ITS ---
Documented by User: KELLY Shetty 11/24/23 23:16 HPI - Abdominal Pain 2 General: Chief Complaint: Abdominal Pain Stated Complaint: severe stomach pain to back and privates Time Seen by Provider: 11/24/23 21:29 History of Present Illness: 43-year-old female comes in today with l ower abdominal pain since Saturday. Patient reports nausea but no vomiting. Patient reports no constipation or diarrhea. Patient reports the pain became worse tonight. Patient appears in moderate pain. Patient appears nontoxic. Patient has had a gallbladder removal, tubal ligation, and hysterectomy. Patient has a history of asthma. Review of Systems 2 General: Reports: 10 or more systems reviewed and unremarkable except in HPI and below GI: Reports: abdominal pain : Denies: vaginal discharge PFSH ED 2 PFSH: Medical History No pertinent past medical history Denies: thyroid problems, diabetes, seizure disorders, DVT/PE. PCP: KELLY Cueto Essential hypertension Diagnosed in February 2020 being managed by PMD. 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 Surgical History Status post tubal ligation 2007--laparoscopic procedure Status post cholecystectomy 1999--laparoscopic procedure Family History Grandmother Breast cancer maternal, age at diagnosis unknown Denies family history of Colon cancer Ovarian cancer Diabetes Heart disease Hyperlipidemia Anesthesia complication Bleeding disorder Hypertension Uterine cancer Thyroid disease Stroke Social History Smoking and tobacco/nicotine status: current every day tobacco/nicotine user cigarettes Packs smoked per day: 1 Years cigarettes smoked: 27 [ Other cigarette details: started at age 16] Substance/Drug Use: never Physical Exam 2 Const: COMMON NORMALS: alert HENMT: COMMON NORMALS: normocephalic HEAD & SCALP: normocephalic Neck/C-Spine: COMMON NORMALS: full ROM Resp: COMMON NORMALS: normal respiratory effort Cardio: COMMON NORMALS: regular rate RATE: regular rate GI: COMMON NORMALS: Soft to palpation AUSCULTATION: Yes normoactive bowel sounds PALPATION: Yes Soft to palpation, Yes Tenderness to palpation present (GI) (Periumbilical) and Yes Guarding due to palpation present (GI) : COMMON NORMALS: Yes no CVA tenderness BLADDER/KIDNEY EXAM: Yes no CVA tenderness Back/Pelvis: COMMON NORMALS: no CVA tenderness and thoracic and lumbar spine normal to inspection Extremity: COMMON NORMALS: normal to inspection Neuro: SENSORIUM/ORIENTATION: Yes alert Skin: COMMON NORMALS: turgor normal GENERAL SKIN EXAM: turgor normal Course 2 Vital Signs: Vital signs: Vital Signs Temperature 97.6 F 11/24/23 20:42 Pulse Rate 80 11/24/23 22:02 Respiratory Rate 22 H 11/24/23 23:05 Blood Pressure 123/69 11/24/23 22:00 Pulse Oximetry 96 11/24/23 23:05 Oxygen Delivery Me thod Room Air 11/24/23 20:42 MDM - Abdominal Pain Medical Decision Making Patient presents today with complaints of lower abdominal pain. Patient appears in moderate pain. Patient appears nontoxic. Respirations are even lungs are clear to auscultation. Vital signs are normal except for elevated blood pressure. Differential diagnosis includes not limited to urinary tract infection, renal calculi, appendicitis, diverticulitis, colitis, pelvic organ prolapse. CBC had some elevation in white blood cell count at 16,000. CMP was normal. Urinalysis was unremarkable. CT of the abdomen pelvis was performed noting nonspecific enteritis without other signs of acute abnormality. Patient did have some nodular thickening of the vaginal cuff which where was recommendation for further evaluation to rule out neoplasm. I discussed this with patient who reported understanding. Will go ahead and treat enteritis with Cipro and Flagyl and give patient some medication dicyclomine to help with the pain. Patient reports understanding and agreed to plan. Lab Data 11/24/23 21:20 11/24/23 21:20 Labs/Radiology: Radiology Impressions Abdomen/Pelvis CT 11/24/23 21:37 IMPRESSION: 1. Possible nonspecific enteritis. Otherwise no evidence of acute abnormality in the abdomen or pelvis. 2. Indeterminate nodular thickening of the vaginal cuff. Follow-up qa reviewer evaluation is recommended to exclude neoplasm. Outpatient MRI of the pelvis with/without contrast may be helpful for further detail as clinically warranted. Laboratory Results WBC 16.43 10^3/uL (3.29-11.43) H 11/24/23 21:20 RBC 5.12 10^6/uL (3.85-5.65) 11/24/23 21:20 Hgb 14.60 g/dL (11.27-16.99) 11/24/23 21:20 Hct 44.1 % (36-47) 11/24/23 21:20 MCV 86.1 fl (85-98) 11/24/23 21:20 MCH 28.5 pg (27-33) 11/24/23 21:20 MCHC 33.1 g/dL (30-55) 11/24/23 21:20 RDW 13.9 % (12.1-15.1) 11/24/23 21:20 Plt Count 273 10^3/cmm (157-399) 11/24/23 21:20 MPV 11.2 fL (7.4-10.4) H 11/24/23 21:20 Neut % (Auto) 63.9 % 11/24/23 21:20 Lymph % (Auto) 28.2 % 11/24/23 21:20 Citrus % (Auto) 4.4 % 11/24/23 21:20 Eos % (Auto) 2.7 % 11/24/23 21:20 Baso % (Auto) 0.4 % 11/24/23 21:20 Neut # (Auto) 10.51 10^3/uL (1.8-7.7) H 11/24/23 21:20 Lymph # (Auto) 4.6 10^3/uL (0.8-4.8) 11/24/23 21:20 Citrus # (Auto) 0.7 10^3/uL (0.2-0.9) 11/24/23 21:20 Eos # (Auto) 0.5 10^3/uL (0.0-0.8) 11/24/23 21:20 Baso # (Auto) 0.1 10^3/uL (0.0-0.1) 11/24/23 21:20 Nucleated RBC % (auto) 0 % 11/24/23 21:20 Nucleated RBCs # 0.0 /100WBC 11/24/23 21:20 Sodium 137 mmol/L (136-145) 11/24/23 21:20 Potassium 3.8 mmol/L (3.5-5.1) 11/24/23 21:20 Chloride 103 mmol/L (98-107) 11/24/23 21:20 Carbon Dioxide 22 mmol/L (22-29) 11/24/23 21:20 Anion Gap 15.8 (5-19) 11/24/23 21:20 BUN 5 mg/dL (6-20) L 11/24/23 21:20 Creatinine 0.7 mg/dL (0.5-0.9) 11/24/23 21:20 GFR Calculation 91.3 mL/min (90-130) 11/24/23 21:20 Glucose 89 mg/dL (65-115) 11/24/23 21:20 Calculated Osmolality 281 mOsm/kg (285-295) L 11/24/23 21:20 Calcium 9.1 mg/dL (8.5-10.5) 11/24/23 21:20 Total Bilirubin 0.3 mg/dL (0.15-1.2) 11/24/23 21:20 AST 22 U/L (0-32) 11/24/23 21:20 ALT 29 U/L (0-33) 11/24/23 21:20 Alkaline Phosphatase 109 U/L (35-105) H 11/24/23 21:20 Total Protein 7.9 g/dL (6.6-8.7) 11/24/23 21:20 Albumin 4.1 g/dL (3.5-5.2) 11/24/23 21:20 Globulin 3.8 g/dL (1.3-4.6) 11/24/23 21:20 Lipase 28 U/L (13-60) 11/24/23 21:20 Urine Color Yellow (Yellow) 11/24/23 20:54 Urine Appearance Clear (CLEAR) 11/24/23 20:54 Urine pH 5 (5-7) 11/24/23 20:54 Ur Specific [place] 1.015 (1.005-1.030) 11/24/23 20:54 Urine Protein Neg (Negative) 11/24/23 20:54 Urine Glucose (UA) Norm (Normal) 11/24/23 20:54 Urine Ketones Negative (Negative) 11/24/23 20:54 Urine Blood Neg (Negative) 11/24/23 20:54 Urine Nitrate Negative (Negative) 11/24/23 20:54 Urine Bilirubin Neg (Negative) 11/24/23 20:54 Urine Urobilinogen Neg mg/dL (Negative) 11/24/23 20:54 Ur Leukocyte Esterase Negative (Negative) 11/24/23 20:54 All radiology interpretation(s) finalized by discharge Discharge Plan Discharge Patient Disposition: Home Clinical Impression: Enteritis Abdominal pain Qualifiers: Abdominal location: generalized Qualified Code(s): R10.84 - Generalized abdominal pain Condition: Stable Prescriptions: New Cipro 500 mg tablet 500 mg PO BID Qty: 10 0RF metronidazole 500 mg tablet 500 mg PO BID Qty: 10 0RF dicyclomine 20 mg tablet 20 mg PO QID PRN (Reason: abdominal pain) Qty: 14 0RF No Action acyclovir 400 mg tablet 400 mg PO TID Qty: 28 5RF albuterol sulfate 2.5 mg /3 mL (0.083 %) solution for nebulization 2.5 mg INHALATION Q4H PRN (Reason: shortness of breath or wheezing) 30 Days Qty: 180 11RF Rx Instructions: 340B, please ibuprofen 800 mg tablet 800 mg PO Q8H PRN varenicline [Chantix Starting Month Box] 0.5 mg (11)- 1 mg (42) tablets,dose pack See Rx Instructions PO PER PKG DIR Qty: 53 0RF Rx Instructions: PO PER PKG DIR albuterol sulfate [ProAir HFA] 90 mcg/actuation HFA aerosol inhaler 2 puff INHALATION QID PRN (Reason: shortness of breath or wheezing) 30 Days Qty: 6.7 11RF Rx Instructions: 340B, please budesonide-formoterol [Symbicort] 160-4.5 mcg/actuation HFA aerosol inhaler 2 puff inhalation BID Qty: 10.2 0RF Discharge Orders: Discharge ED (Routine); Ordered 11/24/23 Ordered By: Richy Jolly Referrals: Cori Brooke FNP-C [Primary Care Provider] - Discharge Diet: Clear Liquid Discharge Activity: Increase activity as tolerated Patient Instructions: Abdominal Pain (ED) Activity Restrictions/Additional Instructions: Clear liquid diet until abdominal pain resolves. Take antibiotic as directed. You will take Cipro 500 mg 1 tablet twice a day for 5 days. You will take metronidazole 500 mg 1 tablet twice a day for 5 days. Use dicyclomine as needed for abdominal pain. Drink plenty of water and fluids. Follow-up with primary care for recheck in 2 to 3 days. You will need to make an appointment with the EXCAVATING MACHINE OPERATOR for further evaluation of abnormal vaginal cuff that showed up on the CT scan suggesting further evaluation with either imaging or examination. Return to ER for new concerns or worsening symptoms such as high fever, unable to hold down fluids, blood in vomit or stool. Coding Level of Care Code ED Small Engine Mechanic for Chg Fwd Documented by User: Brian Whitt DO 11/24/23 23:30 HPI - Abdominal Pain 2 General: Chief Complaint: Abdominal Pain Stated Complaint: severe stomach pain to back and privates Time Seen by Provider: 11/24/23 21:29 PFSH ED 2 PFSH: Medical History No pertinent past medical history Denies: thyroid problems, diabetes, seizure disorders, DVT/PE. PCP: KELLY Cueto Essential hypertension Diagnosed in February 2020 being managed by PMD. 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 Surgical History Status post tubal ligation 2007--laparoscopic procedure Status post cholecystectomy 1999--laparoscopic procedure Family History Grandmother Breast cancer maternal, age at diagnosis unknown Denies family history of Colon cancer Ovarian cancer Diabetes Heart disease Hyperlipidemia Anesthesia complication Bleeding disorder Hypertension Uterine cancer Thyroid disease Stroke Social History Smoking and tobacco/nicotine status: current every day tobacco/nicotine user cigarettes Packs smoked per day: 1 Years cigarettes smoked: 27 [ Other cigarette details: started at age 16] Substance/Drug Use: never Course 2 Vital Signs: Vital signs: Vital Signs Temperature 97.6 F 11/24/23 20:42 Pulse Rate 80 11/24/23 22:02 Respiratory Rate 22 H 11/24/23 23:05 Blood Pressure 123/69 11/24/23 22:00 Pulse Oximetry 96 11/24/23 23:05 Oxygen Delivery Me thod Room Air 11/24/23 20:42 MDM - Abdominal Pain Medical Decision Making Patient presents today with complaints of lower abdominal pain. Patient appears in moderate pain. Patient appears nontoxic. Respirations are even lungs are clear to auscultation. Vital signs are normal except for elevated blood pressure. Differential diagnosis includes not limited to urinary tract infection, renal calculi, appendicitis, diverticulitis, colitis, pelvic organ prolapse. CBC had some elevation in white blood cell count at 16,000. CMP was normal. Urinalysis was unremarkable. CT of the abdomen pelvis was performed noting nonspecific enteritis without other signs of acute abnormality. Patient did have some nodular thickening of the vaginal cuff which where was recommendation for further evaluation to rule out neoplasm. I discussed this with patient who reported understanding. Will go ahead and treat enteritis with Cipro and Flagyl and give patient some medication dicyclomine to help with the pain. Patient reports understanding and agreed to plan. This patient was originally seen by KELLY Garrett.? I agree with his history, evaluation, and treatment. Lab Data 11/24/23 21:20 11/24/23 21:20 Labs/Radiology: Radiology Impressions Abdomen/Pelvis CT 11/24/23 21:37 IMPRESSION: 1. Possible nonspecific enteritis. Otherwise no evidence of acute abnormality in the abdomen or pelvis. 2. Indeterminate nodular thickening of the vaginal cuff. Follow-up qa reviewer evaluation is recommended to exclude neoplasm. Outpatient MRI of the pelvis with/without contrast may be helpful for further detail as clinically warranted. Laboratory Results WBC 16.43 10^3/uL (3.29-11.43) H 11/24/23 21:20 RBC 5.12 10^6/uL (3.85-5.65) 11/24/23 21:20 Hgb 14.60 g/dL (11.27-16.99) 11/24/23 21:20 Hct 44.1 % (36-47) 11/24/23 21:20 MCV 86.1 fl (85-98) 11/24/23 21:20 MCH 28.5 pg (27-33) 11/24/23 21:20 MCHC 33.1 g/dL (30-55) 11/24/23 21:20 RDW 13.9 % (12.1-15.1) 11/24/23 21:20 Plt Count 273 10^3/cmm (157-399) 11/24/23 21:20 MPV 11.2 fL (7.4-10.4) H 11/24/23 21:20 Neut % (Auto) 63.9 % 11/24/23 21:20 Lymph % (Auto) 28.2 % 11/24/23 21:20 Citrus % (Auto) 4.4 % 11/24/23 21:20 Eos % (Auto) 2.7 % 11/24/23 21:20 Baso % (Auto) 0.4 % 11/24/23 21:20 Neut # (Auto) 10.51 10^3/uL (1.8-7.7) H 11/24/23 21:20 Lymph # (Auto) 4.6 10^3/uL (0.8-4.8) 11/24/23 21:20 [place] # (Auto) 0.7 10^3/uL (0.2-0.9) 11/24/23 21:20 Eos # (Auto) 0.5 10^3/uL (0.0-0.8) 11/24/23 21:20 Baso # (Auto) 0.1 10^3/uL (0.0-0.1) 11/24/23 21:20 Nucleated RBC % (auto) 0 % 11/24/23 21:20 Nucleated RBCs # 0.0 /100WBC 11/24/23 21:20 Sodium 137 mmol/L (136-145) 11/24/23 21:20 Potassium 3.8 mmol/L (3.5-5.1) 11/24/23 21:20 Chloride 103 mmol/L (98-107) 11/24/23 21:20 Carbon Dioxide 22 mmol/L (22-29) 11/24/23 21:20 Anion Gap 15.8 (5-19) 11/24/23 21:20 BUN 5 mg/dL (6-20) L 11/24/23 21:20 Creatinine 0.7 mg/dL (0.5-0.9) 11/24/23 21:20 GFR Calculation 91.3 mL/min (90-130) 11/24/23 21:20 Glucose 89 mg/dL (65-115) 11/24/23 21:20 Calculated Osmolality 281 mOsm/kg (285-295) L 11/24/23 21:20 Calcium 9.1 mg/dL (8.5-10.5) 11/24/23 21:20 Total Bilirubin 0.3 mg/dL (0.15-1.2) 11/24/23 21:20 AST 22 U/L (0-32) 11/24/23 21:20 ALT 29 U/L (0-33) 11/24/23 21:20 Alkaline Phosphatase 109 U/L (35-105) H 11/24/23 21:20 Total Protein 7.9 g/dL (6.6-8.7) 11/24/23 21:20 Albumin 4.1 g/dL (3.5-5.2) 11/24/23 21:20 Globulin 3.8 g/dL (1.3-4.6) 11/24/23 21:20 Lipase 28 U/L (13-60) 11/24/23 21:20 Urine Color Yellow (Yellow) 11/24/23 20:54 Urine Appearance Clear (CLEAR) 11/24/23 20:54 Urine pH 5 (5-7) 11/24/23 20:54 Ur Specific [place] 1.015 (1.005-1.030) 11/24/23 20:54 Urine Protein Neg (Negative) 11/24/23 20:54 Urine Glucose (UA) Norm (Normal) 11/24/23 20:54 Urine Ketones Negative (Negative) 11/24/23 20:54 Urine Blood Neg (Negative) 11/24/23 20:54 Urine Nitrate Negative (Negative) 11/24/23 20:54 Urine Bilirubin Neg (Negative) 11/24/23 20:54 Urine Urobilinogen Neg mg/dL (Negative) 11/24/23 20:54 Ur Leukocyte Esterase Negative (Negative) 11/24/23 20:54 Discharge Plan Discharge Patient Disposition: Home Clinical Impression: Enteritis Abdominal pain Qualifiers: Abdominal location: generalized Qualified Code(s): R10.84 - Generalized abdominal pain Condition: Stable Prescriptions: New Cipro 500 mg tablet 500 mg PO BID Qty: 10 0RF metronidazole 500 mg tablet 500 mg PO BID Qty: 10 0RF dicyclomine 20 mg tablet 20 mg PO QID PRN (Reason: abdominal pain) Qty: 14 0RF No Action acyclovir 400 mg tablet 400 mg PO TID Qty: 28 5RF albuterol sulfate 2.5 mg /3 mL (0.083 %) solution for nebulization 2.5 mg INHALATION Q4H PRN (Reason: shortness of breath or wheezing) 30 Days Qty: 180 11RF Rx Instructions: 340B, please ibuprofen 800 mg tablet 800 mg PO Q8H PRN varenicline [Chantix Starting Month Box] 0.5 mg (11)- 1 mg (42) tablets,dose pack See Rx Instructions PO PER PKG DIR Qty: 53 0RF Rx Instructions: PO PER PKG DIR albuterol sulfate [ProAir HFA] 90 mcg/actuation HFA aerosol inhaler 2 puff INHALATION QID PRN (Reason: shortness of breath or wheezing) 30 Days Qty: 6.7 11RF Rx Instructions: 340B, please budesonide-formoterol [Symbicort] 160-4.5 mcg/actuation HFA aerosol inhaler 2 puff inhalation BID Qty: 10.2 0RF Discharge Orders: Discharge ED (Routine); Ordered 11/24/23 Ordered By: Richy Jolly Referrals: Cori Brooke FNP-C [Primary Care Provider] - Discharge Diet: Clear Liquid Discharge Activity: Increase activity as tolerated Patient Instructions: Abdominal Pain (ED) Activity Restrictions/Additional Instructions: Clear liquid diet until abdominal pain resolves. Take antibiotic as directed. You will take Cipro 500 mg 1 tablet twice a day for 5 days. You will take metronidazole 500 mg 1 tablet twice a day for 5 days. Use dicyclomine as needed for abdominal pain. Drink plenty of water and fluids. Follow-up with primary care for recheck in 2 to 3 days. You will need to make an appointment with the EXCAVATING MACHINE OPERATOR for further evaluation of abnormal vaginal cuff that showed up on the CT scan suggesting further evaluation with either imaging or examination. Return to ER for new concerns or worsening symptoms such as high fever, unable to hold down fluids, blood in vomit or stool. Coding Level of Care Code ED Small Engine Mechanic for Machelle Larios
[2023-11-24 21:36] LABS: Basophils # 0.1 10^3/uL (0.0-0.1); Basophils % 0.4 %; Eosinophils # 0.5 10^3/uL (0.0-0.8); Eosinophils % 2.7 %; Hematocrit 44.1 % (36-47); Lymphocytes # 4.6 10^3/uL (0.8-4.8); Lymphocytes % 28.2 %; Mean Corpuscular HGB Conc 33.1 g/dL (30-55); Mean Corpuscular Hemoglobin 28.5 pg (27-33); Mean Corpuscular Volume 86.1 fl (85-98); Mean Platelet Volume 11.2 fL (7.4-10.4); Monocytes # 0.7 10^3/uL (0.2-0.9); Monocytes % 4.4 %; Neutrophils # 10.51 10^3/uL (1.8-7.7); Neutrophils % 63.9 %; Nucleated Red Blood Cells % 0 %; Platelet Count 273 10^3/cmm (157-399); Red Blood Count 5.12 10^6/uL (3.85-5.65); Red Cell Distribution Width 13.9 % (12.1-15.1); White Blood Count 16.43 10^3/uL (3.29-11.43)
--- NOTE | 2023-11-24 21:37 | CTR_ITS ---
PROCEDURE INFORMATION: Exam: CT Abdomen And Pelvis With Contrast Exam date and time: 11/24/2023 10:12 PM Age: 43 years old Clinical indication: Abdominal pain; Localized; Prior surgery; Surgery date: 6+ months; Surgery type: Gb. Tubal. Patient HX: C/O lower abd pain; Additional info: Lower abd pain, suspected abd infection TECHNIQUE: Imaging protocol: Computed tomography of the abdomen and pelvis with contrast. Radiation optimization: All CT scans at this facility use at least one of these dose optimization techniques: automated exposure control; mA and/or kV adjustment per patient size (includes targeted exams where dose is matched to clinical indication); or iterative reconstruction. Contrast material: OMNI 350; Contrast volume: 100 ml; Contrast route: INTRAVENOUS (IV); COMPARISON: CT abdomen pelvis w con* [id number] 05/12/2020 4:18 PM RADIATION DOSE METRICS: Total DLP (mGy-cm): 998.5 FINDINGS: Lungs: Subsegmental bibasilar atelectasis. The visualized lung bases are otherwise grossly clear. Diaphragm: No evidence of diaphragmatic defect. Liver: Hepatomegaly and hepatic steatosis with right lobe measuring up to 20.5 cm. No evidence of focal hepatic lesion. Gallbladder and bile ducts: Status post cholecystectomy. No evidence of intrahepatic or extrahepatic biliary dilatation. Pancreas: Unremarkable. Spleen: Unremarkable. Adrenal glands: Unremarkable. Kidneys and ureters: No renal parenchymal abnormality. No hydronephrosis or ureteral stone. Stomach and bowel: No evidence of bowel obstruction or perienteric inflammatory changes. Few loops of prominent small bowel with mild wall thickening raising the question of a nonspecific enteritis. Appendix: Normal appendix. Intraperitoneal space: No evidence of free air or fluid collection. Vasculature: No aneurysmal dilatation or dissection of the abdominal aorta. The celiac trunk, SMA and BRIANA are grossly patent. No evidence of IVC thrombus. The portal vein, SMV and splenic veins are grossly patent. Lymph nodes: No adenopathy. Urinary bladder: Grossly unremarkable. Reproductive: Status post hysterectomy. There is a 4.5 cm region of nodular thickening of the vaginal cuff. Bones/joints: No evidence of acute fracture or aggressive osseous lesion. Soft tissues: No evidence of fluid collection or hematoma in the superficial soft tissues. CT/CT abdomen pelvis w con* [id number] IMPRESSION: 1. Possible nonspecific enteritis. Otherwise no evidence of acute abnormality in the abdomen or pelvis. 2. Indeterminate nodular thickening of the vaginal cuff. Follow-up laundry tech evaluation is recommended to exclude neoplasm. Outpatient MRI of the pelvis with/without contrast may be helpful for further detail as clinically warranted.
[2023-11-24] MEDS: fentaNYL 50 mcg/mL INJ 2mL IVP ×2 (21:55→23:05)
[2023-11-24] MEDS: sodium chloride 0.9% 1,000 ML 999 ML IV (21:56)
[2023-11-24 21:59] LABS: Alanine Aminotransferase 29 U/L (0-33); Albumin Level 4.1 g/dL (3.5-5.2); Alkaline Phosphatase 109 U/L (35-105); Anion Gap 15.8 (5-19); Aspartate Amino Transferase 22 U/L (0-32); Blood Urea Nitrogen 5 mg/dL (6-20); Calcium 9.1 mg/dL (8.5-10.5); Carbon Dioxide 22 mmol/L (22-29); Chloride 103 mmol/L (98-107); Creatinine Clr Calc Pharmacy 129.0814; Globulin 3.8 g/dL (1.3-4.6); Glomerular Filtration Rate 91.3 mL/min (90-130); Glucose 89 mg/dL (65-115); Lipase 28 U/L (13-60); Osmolality Calculated 281 mOsm/kg (285-295); Potassium 3.8 mmol/L (3.5-5.1); Sodium 137 mmol/L (136-145); Total Bilirubin 0.3 mg/dL (0.15-1.2); Total Protein 7.9 g/dL (6.6-8.7)
[2023-11-24] MEDS: iohexol 350 mg/mL 500 mL Btl (per mL) IV (22:13)
[2023-11-24] MEDS: ciprofloxacin 500 mg Tablet PO (23:29)
[2023-11-24] MEDS: methylPREDNISolone sod succ 125 mg/2 mL INJ IVP (23:30)
== END 2023-11-24 23:40 | disposition home or self-care (01) ==
PROVIDERS: Emergency Medicine; Emergency Provider Nurse Practitioner Family; PCP Nurse Practitioner Family
DX: K52.9 Noninfective gastroenteritis and colitis, unspecified (principal); R10.84 Generalized abdominal pain; I10 Essential (primary) hypertension; F17.210 Nicotine dependence, cigarettes, uncomplicated
CPT/HCPCS: 36415; 74177; 80053; 81003; 83690; 85025; 96374; 96375; 96376; 99285; J2930; J3010; J7030; Q9967

== ENCOUNTER 2023-11-27 09:12 | Outpatient (CLI) | payer SELFPAY | END 2023-11-27 09:13 | disposition home or self-care (01) | LOC: RT 09:12 | PROVIDERS: PCP Nurse Practitioner Family; Visit Provider Internal Medicine Pulmonary Disease | DX: J45.50 Severe persistent asthma, uncomplicated (principal) | CPT/HCPCS: 94010; 94618; 94726; 94729 ==

== ENCOUNTER → 2024-03-10 14:03 | Outpatient (BNVA) | payer SELFPAY | PROVIDERS: PCP Nurse Practitioner Family; Visit Provider Nurse Practitioner Family | DX: B37.0 Candidal stomatitis (principal); I10 Essential (primary) hypertension | CPT/HCPCS: 80053; 80061; 83036; 84443; 85025 ==

== ENCOUNTER 2024-04-20 14:44 | Emergency (ER) | payer SELFPAY ==
[2024-04-20 14:51] VITALS: BP 161/84; PULSE 95; RESP 17; TEMP 36.7; O2SAT 97; BMI 42.0
[2024-04-20 15:05] LABS: Basophils # 0.1 10^3/uL (0.0-0.1); Basophils % 0.4 %; Eosinophils # 0.4 10^3/uL (0.0-0.8); Eosinophils % 3.4 %; Lymphocytes # 3.5 10^3/uL (0.8-4.8); Lymphocytes % 28.9 %; Mean Corpuscular Hemoglobin 29.3 pg (27-33); Mean Corpuscular Volume 88.7 fl (85-98); Mean Platelet Volume 11.1 fL (7.4-10.4); Monocytes # 0.8 10^3/uL (0.2-0.9); Monocytes % 6.6 %; Neutrophils # 7.38 10^3/uL (1.8-7.7); Neutrophils % 60.4 %; Nucleated Red Blood Cells % 0 %; Platelet Count 254 10^3/cmm (157-399); Red Blood Count 4.85 10^6/uL (3.85-5.65); Red Cell Distribution Width 14.3 % (12.1-15.1)
[2024-04-20 15:23] LABS: Alanine Aminotransferase 29 U/L (0-33); Albumin Level 3.9 g/dL (3.5-5.2); Alkaline Phosphatase 93 U/L (35-105); Anion Gap 15.4 (5-19); Aspartate Amino Transferase 18 U/L (0-32); Blood Urea Nitrogen 8 mg/dL (6-20); Calcium 8.7 mg/dL (8.5-10.5); Carbon Dioxide 21 mmol/L (22-29); Chloride 107 mmol/L (98-107); Creatinine Clr Calc Pharmacy 126.4102; Globulin 3.7 g/dL (1.3-4.6); Glomerular Filtration Rate 91.3 mL/min (90-130); Glucose 112 mg/dL (65-115); HCG, Serum Qual Negative (Negative); Lipase 41 U/L (13-60); Osmolality Calculated 289 mOsm/kg (285-295); Potassium 3.4 mmol/L (3.5-5.1); Sodium 140 mmol/L (136-145); Total Bilirubin 0.2 mg/dL (0.15-1.2); Total Protein 7.6 g/dL (6.6-8.7)
--- NOTE | 2024-04-20 15:36 | CTR_ITS ---
PROCEDURE INFORMATION: Exam: CT Abdomen And Pelvis With Contrast Exam date and time: 04/20/2024 4:09 PM Age: 43 years old Clinical indication: Abdominal pain; Localized; Right lower quadrant (rlq); Prior surgery; Surgery date: 6+ months; Surgery type: Hyst, gb; Additional info: Rlq pain TECHNIQUE: Imaging protocol: Computed tomography of the abdomen and pelvis with contrast. Axial, coronal and sagittal reformatted images were created and reviewed. Radiation optimization: All CT scans at this facility use at least one of these dose optimization techniques: automated exposure control; mA and/or kV adjustment per patient size (includes targeted exams where dose is matched to clinical indication); or iterative reconstruction. Contrast material: OMNI 350; Contrast volume: 100 ml; Contrast route: INTRAVENOUS (IV); COMPARISON: CT abdomen pelvis w con* [id number] 11/24/2023 10:12 PM RADIATION DOSE METRICS: Total DLP (mGy-cm): 1035.53 FINDINGS: Lungs: Linear/discoid stranding at the lung bases, consistent with atelectasis and/or scarring. Liver: Mild hepatomegaly. Gallbladder and biliary ducts: Status post cholecystectomy. No biliary ductal dilatation. Pancreas: Unremarkable. Spleen: Unremarkable. Adrenal glands: Normal. No mass. Kidneys and ureters: No mass. No radiodense calculi. No hydronephrosis. Stomach and bowel: No bowel wall thickening. No obstruction. No pneumatosis. Appendix: Normal. Intraperitoneal space: No free fluid. No organized fluid collection. No free air. Vasculature: Unremarkable. No aneurysm. Lymph nodes: No pathologically enlarged lymph nodes. Urinary bladder: Mild circumferential urinary bladder wall thickening, likely secondary to underdistention. Reproductive: Status post hysterectomy. Bones/joints: No acute osseous abnormality. Mild degenerative changes. Soft tissues: Unremarkable. CT/CT abdomen pelvis w con* [id number]: 1[address] No CT evidence of acute intra-abdominal or pelvic pathology. 2. Additional findings, as above.
--- NOTE | 2024-04-20 15:38 | W.ED.ABDPA2 ---
HPI - Abdominal Pain General: Chief Complaint: Abdominal Pain Stated Complaint: right side pain Time Seen by Provider: 04/20/24 15:30 Source: patient Mode of arrival: ambulatory Limitations: no limitations History of Present Illness: 43-year-old female states been having some right lower quadrant pain over the last week states that it is worse with movement improved with rest states pain is currently 1 out of 10 she denies any vomiting or diarrhea denies any severe pain she denies any dysuria. Denies any fevers Associated Symptoms: Denies chills, diarrhea, dysuria, fever(s), nausea and vomiting Related Data Home Medications Medication Instructions Recorded Confirmed ibuprofen 800 mg tablet 800 mg PO Q8H PRN 10/29/23 03/10/24 Previous Rx's Medication Instructions Recorded albuterol sulfate 90 mcg/actuation 2 puff inhalation QID PRN 06/22/21 aerosol inhaler (ProAir HFA) shortness of breath or wheezing 30 days #6.7 grams albuterol sulfate 2.5 mg/3 mL 2.5 mg (3 mL) inhalation Q4H PRN 12/20/21 (0.083 %) solution for nebulization shortness of breath or wheezing 30 days #180 mL acyclovir 400 mg tablet 400 mg PO TID #28 tabs 04/25/23 dicyclomine 20 mg tablet 20 mg PO QID PRN abdominal pain 11/24/23 #14 tabs budesonide-formoterol HFA 160 2 puff inhalation BID #10.2 grams 12/31/23 mcg-4.5 mcg/actuation aerosol inhaler (Symbicort) naproxen 500 mg tablet (Naprosyn) 500 mg PO BID PRN pain #20 tabs 04/20/24 sulfamethoxazole 800 1 tab PO BID 10 days #20 tabs 04/20/24 mg-trimethoprim 160 mg tablet (Bactrim DS) Allergies Allergy/AdvReac Type Severity Reaction Status Date / Time diphenhydramine Allergy ALGY-Difficulty Verified 04/20/24 14:13 [From Benadryl] Breathing codeine AdvReac ADR-Nausea Verified 04/20/24 14:13 hydrocodone [From Vicodin] AdvReac ADR-Nausea Verified 04/20/24 14:13 Review of Systems Const: Denies: fever(s), chills, body aches or change in appetite ENMT: Denies: throat pain or dental pain Card: Denies: chest pain Resp: Denies: dyspnea GI: Reports: abdominal pain; Denies: nausea, vomiting or diarrhea : Denies: dysuria Musc: Denies: neck pain or back pain Skin/Breast: Denies: rash Neuro: Denies: headache(s) PFSH ED PFSH: Medical History No pertinent past medical history Denies: thyroid problems, diabetes, seizure disorders, DVT/PE. PCP: KELLY Cueto Essential hypertension Diagnosed in February 2020 being managed by PMD. 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 Surgical History Status post tubal ligation 2007--laparoscopic procedure Status post cholecystectomy 1999--laparoscopic procedure Family History Grandmother Breast cancer maternal, age at diagnosis unknown Denies family history of Colon cancer Ovarian cancer Diabetes Heart disease Hyperlipidemia Anesthesia complication Bleeding disorder Hypertension Uterine cancer Thyroid disease Stroke Social History Smoking and tobacco/nicotine status: unknown if used tobacco/nicotine Substance/Drug Use: never Physical Exam Const: COMMON NORMALS: no acute distress, patient oriented x3 and healthy appearing HENMT: COMMON NORMALS: normocephalic and atraumatic HEAD & SCALP: normocephalic and atraumatic Neck/C-Spine: COMMON NORMALS: full ROM and supple Chest: COMMONS NORMALS: normal inspection of the chest Resp: COMMON NORMALS: normal respiratory effort Cardio: COMMON NORMALS: regular rate RATE: regular rate GI: COMMON NORMALS: Normal to inspection, nondistended, normoactive bowel sounds present, Soft to palpation and no masses PALPATION: Yes Soft to palpation OTHER: mild rlq tenderness : OTHER: Bartholin cyst noted on the right Extremity: COMMON NORMALS: normal to inspection and full ROM Neuro: COMMON NORMALS: patient oriented x3, moves all extremities and no focal motor deficits Psych: COMMON NORMALS: mental status grossly normal, Normal thought process present and cooperative THOUGHT PROCESS: Normal thought process present Skin: COMMON NORMALS: no rashes or lesions noted and no wounds GENERAL SKIN EXAM: no rashes or lesions noted Procedures Abscess I/D Site: bartholin's gland Side (if applicable): right Local Anesthetic: lidocaine 1% Amount of anesthesia used (mL): 5 Technique: incised with #11 blade Packing used?: none Course Vital Signs: Vital signs: Vital Signs Temperature 98.0 F 04/20/24 14:51 Pulse Rate 95 04/20/24 14:51 Respiratory Rate 17 04/20/24 14:51 Blood Pressure 161/84 04/20/24 14:51 Pulse Oximetry 97 04/20/24 14:51 Oxygen Delivery Me thod Room Air 04/20/24 14:51 MDM - Abdominal Pain Medical Decision Making Patient presents here with some lower abdominal pain lab work CT is normal she does have a Bartholin cyst as well on the right did incise and drain it had been draining had a minimal amount of fluid we will start her on antibiotics she is follow-up with PCP return if worsening. Medical Records I reviewed the patient's medical records. Lab Data I reviewed the patient's lab results. 04/20/24 15:00 04/20/24 15:00 Labs/Radiology: Radiology Impressions Abdomen/Pelvis CT 04/20/24 15:[address]: [address] evidence of acute intra-abdominal or pelvic pathology. 2. Additional findings, as above. Laboratory Results WBC 12.20 10^3/uL (3.29-11.43) H 04/20/24 15:00 RBC 4.85 10^6/uL (3.85-5.65) 04/20/24 15:00 Hgb 14.20 g/dL (11.27-16.99) 04/20/24 15:00 Hct 43.0 % (36-47) 04/20/24 15:00 MCV 88.7 fl (85-98) 04/20/24 15:00 MCH 29.3 pg (27-33) 04/20/24 15:00 MCHC 33.0 g/dL (30-55) 04/20/24 15:00 RDW 14.3 % (12.1-15.1) 04/20/24 15:00 Plt Count 254 10^3/cmm (157-399) 04/20/24 15:00 MPV 11.1 fL (7.4-10.4) H 04/20/24 15:00 Neut % (Auto) 60.4 % 04/20/24 15:00 Lymph % (Auto) 28.9 % 04/20/24 15:00 [place] % (Auto) 6.6 % 04/20/24 15:00 Eos % (Auto) 3.4 % 04/20/24 15:00 Baso % (Auto) 0.4 % 04/20/24 15:00 Neut # (Auto) 7.38 10^3/uL (1.8-7.7) 04/20/24 15:00 Lymph # (Auto) 3.5 10^3/uL (0.8-4.8) 04/20/24 15:00 [place] # (Auto) 0.8 10^3/uL (0.2-0.9) 04/20/24 15:00 Eos # (Auto) 0.4 10^3/uL (0.0-0.8) 04/20/24 15:00 Baso # (Auto) 0.1 10^3/uL (0.0-0.1) 04/20/24 15:00 Nucleated RBC % (auto) 0 % 04/20/24 15:00 Nucleated RBCs # 0.0 /100WBC 04/20/24 15:00 Sodium 140 mmol/L (136-145) 04/20/24 15:00 Potassium 3.4 mmol/L (3.5-5.1) L 04/20/24 15:00 Chloride 107 mmol/L (98-107) 04/20/24 15:00 Carbon Dioxide 21 mmol/L (22-29) L 04/20/24 15:00 Anion Gap 15.4 (5-19) 04/20/24 15:00 BUN 8 mg/dL (6-20) 04/20/24 15:00 Creatinine 0.7 mg/dL (0.5-0.9) 04/20/24 15:00 GFR Calculation 91.3 mL/min (90-130) 04/20/24 15:00 Glucose 112 mg/dL (65-115) 04/20/24 15:00 Calculated Osmolality 289 mOsm/kg (285-295) 04/20/24 15:00 Calcium 8.7 mg/dL (8.5-10.5) 04/20/24 15:00 Total Bilirubin 0.2 mg/dL (0.15-1.2) 04/20/24 15:00 AST 18 U/L (0-32) 04/20/24 15:00 ALT 29 U/L (0-33) 04/20/24 15:00 Alkaline Phosphatase 93 U/L (35-105) 04/20/24 15:00 Total Protein 7.6 g/dL (6.6-8.7) 04/20/24 15:00 Albumin 3.9 g/dL (3.5-5.2) 04/20/24 15:00 Globulin 3.7 g/dL (1.3-4.6) 04/20/24 15:00 Lipase 41 U/L (13-60) 04/20/24 15:00 HCG, Qual Negative (Negative) 04/20/24 15:00 Urine Color Yellow (Yellow) 04/20/24 15:49 Urine Appearance Clear (CLEAR) 04/20/24 15:49 Urine pH 5.5 (5-7) 04/20/24 15:49 Ur Specific [place] 1.021 (1.005-1.030) 04/20/24 15:49 Urine Protein Negative (Negative) 04/20/24 15:49 Urine Glucose (UA) Negative (Normal) 04/20/24 15:49 Urine Ketones Negative (Negative) 04/20/24 15:49 Urine Blood Negative (Negative) 04/20/24 15:49 Urine Nitrate Negative (Negative) 04/20/24 15:49 Urine Bilirubin Negative (Negative) 04/20/24 15:49 Urine Urobilinogen 1.0 mg/dL (Negative) 04/20/24 15:49 Ur Leukocyte Esterase 1+ (Negative) A 04/20/24 15:49 Urine RBC 0-2 /hpf (0-2) 04/20/24 15:49 Urine WBC 21-50 /hpf (0-5) H 04/20/24 15:49 Ur Squamous Epith Cells 6-10 /hpf (0-5) 04/20/24 15:49 Amorphous Sediment Not Reportable 04/20/24 15:49 Urine Bacteria 1+ /hpf (NONE) H 04/20/24 15:49 Hyaline Casts 0.40 /lpf 04/20/24 15:49 All radiology interpretation(s) finalized by discharge Discharge Plan Discharge Patient Disposition: Home Clinical Impression: Abdominal pain, Abscess of Bartholin gland Condition: Stable Prescriptions: New Bactrim DS 800-160 mg tablet 1 tab PO BID 10 Days Qty: 20 0RF Naprosyn 500 mg tablet 500 mg PO BID PRN (Reason: pain) Qty: 20 0RF No Action acyclovir 400 mg tablet 400 mg PO TID Qty: 28 5RF budesonide-formoterol [Symbicort] 160-4.5 mcg/actuation HFA aerosol inhaler 2 puff inhalation BID Qty: 10.2 6RF albuterol sulfate 2.5 mg /3 mL (0.083 %) solution for nebulization 2.5 mg INHALATION Q4H PRN (Reason: shortness of breath or wheezing) 30 Days Qty: 180 11RF Rx Instructions: 340B, please ibuprofen 800 mg tablet 800 mg PO Q8H PRN albuterol sulfate [ProAir HFA] 90 mcg/actuation HFA aerosol inhaler 2 puff INHALATION QID PRN (Reason: shortness of breath or wheezing) 30 Days Qty: 6.7 11RF Rx Instructions: 340B, please dicyclomine 20 mg tablet 20 mg PO QID PRN (Reason: abdominal pain) Qty: 14 0RF Discharge Orders: Discharge ED (Routine); Ordered 04/20/24 Ordered By: Hazel Nazario Referrals: Cori Brooke FNP-C [Primary Care Provider] - 4-7 days Discharge Diet: Advance as tolerated Discharge Activity: Resume usual activity Patient Instructions: Abdominal Pain (ED), Bartholin Cyst (ED) Coding Level of Care Code ED Director Of Public Relations for Machelle Larios
[2024-04-20 15:56] LABS: Charge for UA Resulting for Rev
[2024-04-20 16:02] LABS: Bilirubin Urine Negative (Negative); Blood Urine Negative (Negative); Glucose Urine UA Negative (Normal); Ketones Urine Negative (Negative); Leukocyte Esterase Urine 1+ (Negative); Nitrate Urine Negative (Negative); Protein Urine Negative (Negative); Specific Gravity, Urine 1.021 (1.005-1.030); Urine Appearance Clear (CLEAR); Urine Color Yellow (Yellow); pH Urine 5.5 (5-7)
[2024-04-20 16:05] LABS: Bacteria Urine 1+ /hpf; RBC Urine 0-2 /hpf (0-2); WBC Urine 21-50 /hpf (0-5)
[2024-04-20 16:06] LABS: Add Urine Culture? Yes
[2024-04-20] MEDS: iohexol 350 mg/mL 500 mL Btl (per mL) IV (16:13)
[2024-04-20] MEDS: lidocaine 1% INJ 10 mL (per mL) INJECTION (17:17)
[2024-04-20 17:26] VITALS: BP 138/86; PULSE 87; O2SAT 97
== END 2024-04-20 17:36 | disposition home or self-care (01) ==
PROVIDERS: Emergency Provider Emergency Medicine; PCP Nurse Practitioner Family
DX: R10.31 Right lower quadrant pain (principal); N75.1 Abscess of Bartholin's gland; I10 Essential (primary) hypertension
CPT/HCPCS: 36415; 56420; 74177; 80053; 81000; 81003; 81015; 83690; 84703; 85025; 87077; 87086; 87186; 99284; Q9967

== ENCOUNTER 2024-06-24 20:54 | Emergency (ER) | payer SELFPAY ==
--- NOTE | 2024-06-24 20:56 | ECG_ITS ---
[facility] Date: 2024-[facility]-24 Pat Name: Umberto Telles Department: Room: Gender: Female Medical Lab Specialist: : 1980 Requested By: Paula Cope Order Number: [id number] Manpreet MD: Thom Saucedo M.D. Measurements Intervals [place] Rate: 84 P: 67 MA: 149 QRS: 63 QRSD: 95 T: 43 QT: 379 QTc: 448 Interpretive Statements SINUS RHYTHM LOW QRS VOLTAGE IN PRECORDIAL LEADS [QRS DEFLECTION < 1.0 mV IN CHEST LEADS] Compared to ECG 11/02/2021 07:44:51 Low QRS voltage now present Electronically Signed On 06-25-2024 00:57:40 CDT by Thom Saucedo M.D. [email or web address]
[2024-06-24 21:04] VITALS: BP 167/68; PULSE 89; RESP 16; TEMP 36.6; O2SAT 98; BMI 42.0
--- NOTE | 2024-06-24 21:59 | XRR_ITS ---
PROCEDURE INFORMATION: Exam: XR Chest Exam date and time: 06/24/2024 10:31 PM Age: 43 years old Clinical indication: Pain; Chest pressure; Additional info: Chest pain TECHNIQUE: Imaging protocol: Radiologic exam of the chest. Views: 1 view. COMPARISON: CR XR chest 2V* [id number] 12/20/2021 10:00 AM FINDINGS: Lungs: Clear, symmetrically inflated lungs. Pleural spaces: No pleural effusion. No pneumothorax. Heart/Mediastinum: Cardiac silhouette is normal in size for technique. Bones/joints: Age appropriate. XR/XR chest 1V portable [id number] IMPRESSION: No acute cardiopulmonary abnormality.
--- NOTE | 2024-06-24 23:18 | ED_ITS ---
HPI - Chest Pain 2 General: Chief Complaint: Chest Pain Stated Complaint: Chest Pain and ABD Pain Time Seen by Provider: 06/24/24 21:16 Source: patient Mode of arrival: ambulatory Limitations: no limitations History of Present Illness: Patient is a 43-year-old female presenting to the emergency department complaining of upper abdominal pain over the past couple of days. She notes that she has also had onset of central chest pain that does not radiate, currently is mild and feels like a stabbing sensation. She has never had this pain before, denies any personal history of heart attacks or strokes, and no family history. She denies any history of acid reflux, however has not taken anything for this. Only exacerbating factor to note is movement. She notes that her upper abdominal pain is to both upper quadrants, has a history of cholecystectomy. She is noting diarrhea. She denies shortness of breath, fevers, chills, diaphoresis, palpitations, urinary symptoms, or other symptoms to note. That chest pain does not radiate. Vitals stable at this time. MD complaint: chest pain Onset (ago): day(s) Prior episodes: No Onset: during rest Pain location: substernal Pain radiation: none Severity: mild Quality: burning Exacerbating factors: movement Associated symptoms: Reports abdominal pain; Deny dyspnea, fever(s), nausea, palpitations or vomiting Treatment prior to arrival: none Related Data Home Medications Medication Instructions Recorded Confirmed ibuprofen 800 mg tablet 800 mg PO Q8H PRN 10/29/23 04/28/24 Previous Rx's Medication Instructions Recorded albuterol sulfate 90 mcg/actuation 2 puff inhalation QID PRN 06/22/21 aerosol inhaler (ProAir HFA) shortness of breath or wheezing 30 days #6.7 grams albuterol sulfate 2.5 mg/3 mL 2.5 mg (3 mL) inhalation Q4H PRN 12/20/21 (0.083 %) solution for nebulization shortness of breath or wheezing 30 days #180 mL acyclovir 400 mg tablet 400 mg PO TID #28 tabs 04/25/23 dicyclomine 20 mg tablet 20 mg PO QID PRN abdominal pain 11/24/23 #14 tabs budesonide-formoterol HFA 160 2 puff inhalation BID #10.2 grams 04/23/24 mcg-4.5 mcg/actuation aerosol inhaler (Symbicort) naproxen 500 mg tablet (Naprosyn) 500 mg PO BID PRN pain #20 tabs 04/20/24 hydrochlorothiazide 25 mg tablet 25 mg PO DAILY PRN edema #30 tabs 04/28/24 famotidine 40 mg tablet (Pepcid) 40 mg PO DAILY #30 tabs 06/25/24 Allergies Allergy/AdvReac Type Severity Reaction Status Date / Time diphenhydramine Allergy ALGY-Difficulty Verified 04/28/24 09:14 [From Benadryl] Breathing codeine AdvReac ADR-Nausea Verified 04/28/24 09:14 hydrocodone [From Vicodin] AdvReac ADR-Nausea Verified 04/28/24 09:14 Review of Systems 2 General: Reports: 10 or more systems reviewed and unremarkable except in HPI and below Const: Denies: fever(s), chills or fatigue Eyes: Denies: change in vision ENMT: Denies: throat pain, ear or mastoid pain or nasal discharge Card: Reports: chest pain; Denies: palpitations, swelling of feet/ankles or lightheadedness Resp: Denies: dyspnea, productive cough or wheezing GI: Reports: abdominal pain and diarrhea; Denies: nausea, vomiting or constipation : Denies: flank pain, difficulty voiding, dysuria or urinary frequency Musc: Denies: neck pain, back pain or joint pain Skin/Breast: Denies: rash Neuro: Denies: headache(s), numbness in extremities or weakness in extremities PFSH ED 2 PFSH: Medical History No pertinent past medical history Denies: thyroid problems, diabetes, seizure disorders, DVT/PE. PCP: KELLY Cueto Essential hypertension Diagnosed in February 2020 being managed by PMD. 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 Surgical History Status post tubal ligation 2007--laparoscopic procedure Status post cholecystectomy 1999--laparoscopic procedure Family History Grandmother Breast cancer maternal, age at diagnosis unknown Denies family history of Colon cancer Ovarian cancer Diabetes Heart disease Hyperlipidemia Anesthesia complication Bleeding disorder Hypertension Uterine cancer Thyroid disease Stroke Social History Smoking and tobacco/nicotine status: current every day tobacco/nicotine user cigarettes Packs smoked per day: 1 Years cigarettes smoked: 27 [ Other cigarette details: started at age 16] Substance/Drug Use: never Physical Exam 2 Const: COMMON NORMALS: no acute distress, patient oriented x3, no limitations, alert and well nourished GENERAL APPEARANCE: cooperative and comfortable N UTRITIONAL APPEARANCE: obese morbidly obese ORIENTATION/CONSCIOUSNESS: Yes awake OTHER: Nontoxic-appearing in no acute distress HENMT: COMMON NORMALS: normocephalic, atraumatic, hearing grossly normal bilaterally, external ears normal, Normal external nose present, Normal nasal mucous membranes and turbinates present and moist oral mucous membranes HEAD & SCALP: normocephalic and atraumatic NOSE: Normal external nose present and Normal nasal mucous membranes and turbinates present EXTERNAL EAR: Yes external ears normal Eye: COMMON NORMALS: Equal, round and reactive pupils present, EOMs intact bilaterally, conjunctivae normal and normal visual rdz by confrontation C ONJUNCTIVA: Yes conjunctivae normal PUPIL: Yes Equal, round and reactive pupils present Neck/C-Spine: COMMON NORMALS: full ROM, supple, no meningeal signs and no JVD Resp: COMMON NORMALS: normal respiratory effort, No retractions, No use of accessory muscles and clear to auscultation bilaterally AUSCULTATION: clear to auscultation bilaterally, no crackles, no rales, no rhonchi and no wheezes Cardio: COMMON NORMALS: no JVD, regular rate, regular rhythm, S1 normal heart sound present, S2 normal heart sound present, No gallops present (Cardio), No clicks present (Cardio), No murmurs present (Cardio), No rub (Cardio) and Peripheral pulses 2+ throughout RATE: regular rate RHYTHM: regular rhythm HEART SOUNDS: S1 normal heart sound present and S2 normal heart sound present PERIPHERAL PULSES: Peripheral pulses 2+ throughout GI: COMMON NORMALS: Normal to inspection, nondistended, normoactive bowel sounds present, Soft to palpation, No hepatosplenomegaly present and no masses INSPECTION: Yes central obesity AUSCULTATION: Yes normoactive bowel sounds PALPATION: Yes Soft to palpation, No Guarding due to palpation present (GI), No Rigid due to palpation and Yes No hepatosplenomegaly present RECTAL EXAM: d eferred OTHER: Very mild upper quadrant tenderness to deep palpation bilaterally : COMMON NORMALS: Yes no CVA tenderness BLADDER/KIDNEY EXAM: Yes no CVA tenderness Back/Pelvis: COMMON NORMALS: no CVA tenderness Extremity: COMMON NORMALS: normal to inspection and full ROM Neuro: COMMON NORMALS: patient oriented x3, moves all extremities, no focal motor deficits and no sensory deficits noted SENSORIUM/ORIENTATION: Yes alert MENINGEAL SIGNS: Yes no meningeal signs Psych: COMMON NORMALS: mental status grossly normal, cooperative and speech normal SPEECH: Yes normal speech Skin: COMMON NORMALS: no rashes or lesions noted GENERAL SKIN EXAM: no rashes or lesions noted Course 2 Vital Signs: Vital signs: Vital Signs Temperature 97.9 F 06/24/24 21:04 Pulse Rate 78 06/25/24 00:20 Respiratory Rate 16 06/24/24 21:04 Blood Pressure 111/64 06/25/24 00:20 Pulse Oximetry 96 06/25/24 00:20 Oxygen Delivery Me thod Room Air 06/24/24 21:04 MDM - Chest Pain Medical Decision Making Patient arrived complaining of what began as upper abdominal pain, now having some chest pain with diarrhea. All of her lab work was unremarkable aside from mild elevation in her white blood cell count. She does have a history of cholecystectomy. Did improve after a GI cocktail. Her chest x-ray was normal, troponins were normal, and EKG unremarkable. Do not suspect ACS at this time. She has no past medical history of this or significant risk factors at this time. CT did not demonstrate any acute findings to explain her pain, that I do suspect this is an acid reflux. Will treat with Pepcid and have her follow-up with primary care for further evaluation, as if she continues to have pain she may need a scope. Discussed other conservative measurements such as avoiding triggering food or drink and not laying flat after eating for couple of hours. She endorses understanding, return precautions given, she will be discharged at this time. Her vitals have been stable throughout the ED course, blood pressure mildly elevated on presentation, this was decreased after pain relief from GI cocktail. Lab Data 06/24/24 23:00 06/24/24 23:00 Radiology Impressions Chest X-Ray 06/24/24 21:59 IMPRESSION: No acute cardiopulmonary abnormality. Abdomen/Pelvis CT 06/24/24 23:54 IMPRESSION: 1. No acute abnormality identified to explain patient's epigastric pain. In particular, the pancreas appears normal and there is no visible gastric mass or ulcer. 2. Hepatic steatosis with moderate hepatomegaly and mild splenomegaly. Laboratory Results WBC 15.55 10^3/uL (3.29-11.43) H 06/24/24 23:00 RBC 4.91 10^6/uL (3.85-5.65) 06/24/24 23:00 Hgb 14.10 g/dL (11.27-16.99) 06/24/24 23:00 Hct 43.1 % (36-47) 06/24/24 23:00 MCV 87.8 fl (85-98) 06/24/24 23:00 MCH 28.7 pg (27-33) 06/24/24 23:00 MCHC 32.7 g/dL (30-55) 06/24/24 23:00 RDW 14.5 % (12.1-15.1) 06/24/24 23:00 Plt Count 264 10^3/cmm (157-399) 06/24/24 23:00 MPV 11.8 fL (7.4-10.4) H 06/24/24 23:00 Neut % (Auto) 57.8 % 06/24/24 23:00 Lymph % (Auto) 33.8 % 06/24/24 23:00 [place] % (Auto) 5.4 % 06/24/24 23:00 Eos % (Auto) 2.3 % 06/24/24 23:00 Baso % (Auto) 0.4 % 06/24/24 23:00 Neut # (Auto) 8.98 10^3/uL (1.8-7.7) H 06/24/24 23:00 Lymph # (Auto) 5.3 10^3/uL (0.8-4.8) H 06/24/24 23:00 [place] # (Auto) 0.8 10^3/uL (0.2-0.9) 06/24/24 23:00 Eos # (Auto) 0.4 10^3/uL (0.0-0.8) 06/24/24 23:00 Baso # (Auto) 0.1 10^3/uL (0.0-0.1) 06/24/24 23:00 Nucleated RBC % (auto) 0 % 06/24/24 23:00 Nucleated RBCs # 0.0 /100WBC 06/24/24 23:00 Sodium 140 mmol/L (136-145) 06/24/24 23:00 Potassium 4.2 mmol/L (3.5-5.1) 06/24/24 23:00 Chloride 103 mmol/L (98-107) 06/24/24 23:00 Carbon Dioxide 26 mmol/L (22-29) 06/24/24 23:00 Anion Gap 15.2 (5-19) 06/24/24 23:00 BUN 16 mg/dL (6-20) 06/24/24 23:00 Creatinine 0.8 mg/dL (0.5-0.9) 06/24/24 23:00 GFR Calculation 78.3 mL/min (90-130) L 06/24/24 23:00 Glucose 107 mg/dL (65-115) 06/24/24 23:00 Calculated Osmolality 292 mOsm/kg (285-295) 06/24/24 23:00 Calcium 8.9 mg/dL (8.5-10.5) 06/24/24 23:00 Total Bilirubin 0.2 mg/dL (0.15-1.2) 06/24/24 23:00 AST 29 U/L (0-32) 06/24/24 23:00 ALT 38 U/L (0-33) H 06/24/24 23:00 Alkaline Phosphatase 92 U/L (35-105) 06/24/24 23:00 Troponin T Baseline < 6 ng/L (0-10) 06/24/24 23:00 Total Protein 7.1 g/dL (6.6-8.7) 06/24/24 23:00 Albumin 4.0 g/dL (3.5-5.2) 06/24/24 23:00 Globulin 3.1 g/dL (1.3-4.6) 06/24/24 23:00 Lipase 41 U/L (13-60) 06/24/24 23:00 Urine Color Yellow (Yellow) 06/24/24 23:15 Urine Appearance Clear (CLEAR) 06/24/24 23:15 Urine pH 6.0 (5-7) 06/24/24 23:15 Ur Specific [place] 1.026 (1.005-1.030) 06/24/24 23:15 Urine Protein Negative (Negative) 06/24/24 23:15 Urine Glucose (UA) Negative (Normal) 06/24/24 23:15 Urine Ketones Negative (Negative) 06/24/24 23:15 Urine Blood Negative (Negative) 06/24/24 23:15 Urine Nitrate Negative (Negative) 06/24/24 23:15 Urine Bilirubin Negative (Negative) 06/24/24 23:15 Urine Urobilinogen 1.0 mg/dL (Negative) 06/24/24 23:15 Ur Leukocyte Esterase Negative (Negative) 06/24/24 23:15 Urine RBC 0-2 /hpf (0-2) 06/24/24 23:15 Urine WBC 0-5 /hpf (0-5) 06/24/24 23:15 Ur Squamous Epith Cells 0-5 /hpf (0-5) 06/24/24 23:15 Amorphous Sediment Not Reportable 06/24/24 23:15 Urine Bacteria None seen /hpf (NONE) 06/24/24 23:15 Hyaline Casts 0.81 /lpf 06/24/24 23:15 All radiology interpretation(s) finalized by discharge Discharge Plan Discharge Patient Disposition: Home Clinical Impression: Chest pain due to GERD Condition: Stable Prescriptions: New famotidine [Pepcid] 40 mg tablet 40 mg PO DAILY Qty: 30 0RF No Action acyclovir 400 mg tablet 400 mg PO TID Qty: 28 5RF budesonide-formoterol [Symbicort] 160-4.5 mcg/actuation HFA aerosol inhaler 2 puff inhalation BID Qty: 10.2 6RF hydrochlorothiazide 25 mg tablet 25 mg PO DAILY PRN (Reason: edema) Qty: 30 2RF albuterol sulfate 2.5 mg /3 mL (0.083 %) solution for nebulization 2.5 mg INHALATION Q4H PRN (Reason: shortness of breath or wheezing) 30 Days Qty: 180 11RF Rx Instructions: 340B, please ibuprofen 800 mg tablet 800 mg PO Q8H PRN albuterol sulfate [ProAir HFA] 90 mcg/actuation HFA aerosol inhaler 2 puff INHALATION QID PRN (Reason: shortness of breath or wheezing) 30 Days Qty: 6.7 11RF Rx Instructions: 340B, please dicyclomine 20 mg tablet 20 mg PO QID PRN (Reason: abdominal pain) Qty: 14 0RF Naprosyn 500 mg tablet 500 mg PO BID PRN (Reason: pain) Qty: 20 0RF Discharge Orders: Discharge ED (Routine); Ordered 06/25/24 Ordered By: Dl Velasco Referrals: Cori Brooke FNP-C [Primary Care Provider] - Discharge Diet: As Directed Patient Instructions: GERD (Gastroesophageal Reflux Disease) (ED) Activity Restrictions/Additional Instructions: Pepcid as prescribed. Avoid any food or drink that may potentially make your acid reflux worse. Avoid laying down at least 2 hours after eating. Follow-up with your primary care provider for further evaluation. Return with any new or worsening symptoms. Drink plenty of fluids. Coding Level of Care Code ED Real Estate Administrator for Machelle Larios
[2024-06-24 23:29] LABS: Basophils # 0.1 10^3/uL (0.0-0.1); Basophils % 0.4 %; Eosinophils # 0.4 10^3/uL (0.0-0.8); Eosinophils % 2.3 %; Hematocrit 43.1 % (36-47); Lymphocytes # 5.3 10^3/uL (0.8-4.8); Lymphocytes % 33.8 %; Mean Corpuscular HGB Conc 32.7 g/dL (30-55); Mean Corpuscular Hemoglobin 28.7 pg (27-33); Mean Corpuscular Volume 87.8 fl (85-98); Mean Platelet Volume 11.8 fL (7.4-10.4); Monocytes # 0.8 10^3/uL (0.2-0.9); Monocytes % 5.4 %; Neutrophils # 8.98 10^3/uL (1.8-7.7); Neutrophils % 57.8 %; Nucleated Red Blood Cells % 0 %; Platelet Count 264 10^3/cmm (157-399); Red Blood Count 4.91 10^6/uL (3.85-5.65); Red Cell Distribution Width 14.5 % (12.1-15.1); White Blood Count 15.55 10^3/uL (3.29-11.43)
[2024-06-24 23:34] LABS: Troponin(5th) Baseline < 6 ng/L (0-10)
[2024-06-24] MEDS: lidocaine 2% viscous 15 ML, aluminum-mag hydrox-simethicon 30 ML, sucralfate oral liq 1 GM PO (23:35)
[2024-06-24 23:37] LABS: Alanine Aminotransferase 38 U/L (0-33); Alkaline Phosphatase 92 U/L (35-105); Anion Gap 15.2 (5-19); Aspartate Amino Transferase 29 U/L (0-32); Blood Urea Nitrogen 16 mg/dL (6-20); Calcium 8.9 mg/dL (8.5-10.5); Carbon Dioxide 26 mmol/L (22-29); Chloride 103 mmol/L (98-107); Globulin 3.1 g/dL (1.3-4.6); Glomerular Filtration Rate 78.3 mL/min (90-130); Glucose 107 mg/dL (65-115); Lipase 41 U/L (13-60); Osmolality Calculated 292 mOsm/kg (285-295); Potassium 4.2 mmol/L (3.5-5.1); Sodium 140 mmol/L (136-145); Total Bilirubin 0.2 mg/dL (0.15-1.2); Total Protein 7.1 g/dL (6.6-8.7)
[2024-06-24 23:38] VITALS: BP 117/71; PULSE 75; O2SAT 97
[2024-06-24 23:43] LABS: Bilirubin Urine Negative (Negative); Blood Urine Negative (Negative); Glucose Urine UA Negative (Normal); Ketones Urine Negative (Negative); Leukocyte Esterase Urine Negative (Negative); Nitrate Urine Negative (Negative); Protein Urine Negative (Negative); Specific Gravity, Urine 1.026 (1.005-1.030); Urine Appearance Clear (CLEAR); Urine Color Yellow (Yellow)
[2024-06-24 23:48] LABS: Add Urine Microscopic? YES; Bacteria Urine None Seen /hpf; Hyaline Casts Urine 0.81 /lpf; RBC Urine 0-2 /hpf (0-2); Squamous Epithelial Cell Urine 0-5 /hpf (0-5); WBC Urine 0-5 /hpf (0-5)
[2024-06-24 23:53] LABS: Slide Review Slide Review Perform
--- NOTE | 2024-06-24 23:54 | CTR_ITS ---
PROCEDURE INFORMATION: Exam: CT Abdomen And Pelvis With Contrast Exam date and time: 06/24/2024 11:57 PM Age: 43 years old Clinical indication: Abdominal pain; Epigastric; Prior surgery; Surgery date: 6+ months; Surgery type: Choley 2000. Tubal -2008; Additional info: Abd pain TECHNIQUE: Imaging protocol: Computed tomography of the abdomen and pelvis with contrast. Radiation optimization: All CT scans at this facility use at least one of these dose optimization techniques: automated exposure control; mA and/or kV adjustment per patient size (includes targeted exams where dose is matched to clinical indication); or iterative reconstruction. Contrast material: OMNI 350; Contrast volume: 100 ml; Contrast route: INTRAVENOUS (IV); COMPARISON: CT abdomen pelvis w con* [id number] 04/20/2024 4:09 PM RADIATION DOSE METRICS: Total DLP (mGy-cm): 1064.53 FINDINGS: Lungs: Stable scarring in the right middle lobe and lingula. Basilar lung parenchyma is otherwise clear. Pleural spaces: No pleural fluid or pneumothorax. Heart: Heart size is normal. Liver: Homogeneous low attenuation throughout the liver is compatible with fatty infiltration. Liver measures 20.9 cm in length. Gallbladder and biliary ducts: Prior cholecystectomy. No biliary tree dilation or high-density retained stones appreciated. Pancreas: No pancreatic edema or visible mass. Spleen: Homogeneous spleen measures 12.9 cm in length. Adrenal glands: Normal configuration. Kidneys and ureters: Kidneys enhance symmetrically and demonstrate no evidence of mass, calculus, obstruction, or inflammation. Stomach and bowel: Postprandial stomach without visible mass or ulcer. Normal caliber small bowel. No significant diverticular disease seen in the colon. No obstruction. No mural thickening. Appendix: Normal appendix is confirmed. Intraperitoneal space: No free air. No significant fluid collection. Vasculature: Normal caliber arterial structures. Lymph nodes: No enlarged lymph nodes. Urinary bladder: Unremarkable as visualized. Reproductive: Prior hysterectomy. No evidence of vaginal cuff or adnexal mass. Bones/joints: No fracture or destructive lesion. Soft tissues: Prominent bilateral epicardial fat pads. CT/CT abdomen pelvis w con* [id number] IMPRESSION: 1. No acute abnormality identified to explain patient's epigastric pain. In particular, the pancreas appears normal and there is no visible gastric mass or ulcer. 2. Hepatic steatosis with moderate hepatomegaly and mild splenomegaly.
--- NOTE | 2024-06-24 23:59 | ECG_ITS ---
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
[2024-06-25] MEDS: iohexol 350 mg/mL 500 mL Btl (per mL) IV (00:07)
[2024-06-25 00:20] VITALS: BP 111/64; PULSE 78; O2SAT 96
[2024-06-25 00:55] LABS: Troponin 5 2HR Delta 0.00001 ABS# (0-10)
[2024-06-25 01:00] VITALS: BP 114/72; PULSE 80; O2SAT 96
== END 2024-06-25 01:01 | disposition home or self-care (01) ==
PROVIDERS: Emergency Provider Physician Assistant; PCP Nurse Practitioner Family
DX: K21.9 Gastro-esophageal reflux disease without esophagitis (principal); R07.89 Other chest pain; F17.210 Nicotine dependence, cigarettes, uncomplicated; I10 Essential (primary) hypertension
CPT/HCPCS: 36415; 71045; 74177; 80053; 81001; 83690; 84484; 85025; 93005; 99285

== ENCOUNTER → 2024-07-15 12:20 | Outpatient (BNVA) | payer SELFPAY | PROVIDERS: PCP Nurse Practitioner Family; Visit Provider Nurse Practitioner | DX: J02.9 Acute pharyngitis, unspecified (principal) | CPT/HCPCS: 87880 ==

== ENCOUNTER 2024-09-20 17:11 | Emergency (ER) | payer SELFPAY ==
--- NOTE | 2024-09-20 17:16 | XRR_ITS ---
PROCEDURE INFORMATION: Exam: XR Chest Exam date and time: 09/20/2024 6:37 PM Age: 44 years old Clinical indication: Shortness of breath; Patient HX: SOB; Coughing up blood; Difficulty breathing TECHNIQUE: Imaging protocol: Radiologic exam of the chest. Views: 1 view. COMPARISON: CR XR chest 1V portable [id number] 06/24/2024 10:31 PM FINDINGS: Lungs: Bibasilar atelectasis versus minimal infiltrate. Emphysematous changes suspected. Pleural spaces: Unremarkable. No pleural effusion. No pneumothorax. Heart/Mediastinum: Mild cardiomegaly. Bones/joints: Unremarkable. XR/XR chest 1V portable [id number] IMPRESSION: 1. Bibasilar atelectasis versus minimal infiltrate. 2. Mild cardiomegaly. 3. Emphysematous changes suspected.
--- NOTE | 2024-09-20 17:21 | ECG_ITS ---
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 Measurements Intervals [place] Rate: 89 P: 58 NV: 139 QRS: 40 QRSD: 93 T: 8 QT: 362 QTc: 442 Interpretive Statements SINUS RHYTHM Compared to ECG 06/25/2024 00:21:44 No significant changes Electronically Signed On 09-22-2024 23:52:19 OPERATIONS INTELLIGENCE by Thom Saucedo M.D. [id number]
[2024-09-20 17:25] VITALS: BP 140/83; PULSE 90; RESP 16; TEMP 36.6; O2SAT 96; BMI 41.1
[2024-09-20 18:18] LABS: Basophils # 0.1 10^3/uL (0.0-0.1); Basophils % 0.3 %; Eosinophils % 0.1 %; Lymphocytes # 4.3 10^3/uL (0.8-4.8); Lymphocytes % 19.8 %; Mean Corpuscular HGB Conc 32.2 g/dL (30-55); Mean Corpuscular Hemoglobin 28.6 pg (27-33); Mean Corpuscular Volume 88.9 fl (85-98); Mean Platelet Volume 10.7 fL (7.4-10.4); Monocytes # 1.1 10^3/uL (0.2-0.9); Monocytes % 5.1 %; Neutrophils # 16.05 10^3/uL (1.8-7.7); Neutrophils % 73.8 %; Nucleated Red Blood Cells % 0 %; Platelet Count 303 10^3/cmm (157-399); Red Blood Count 4.61 10^6/uL (3.85-5.65); Red Cell Distribution Width 15.1 % (12.1-15.1); White Blood Count 21.76 10^3/uL (3.29-11.43)
[2024-09-20 18:45] LABS: Alanine Aminotransferase 39 U/L (0-33); Albumin Level 3.8 g/dL (3.5-5.2); Alkaline Phosphatase 85 U/L (35-105); Anion Gap 15.5 (5-19); Aspartate Amino Transferase 18 U/L (0-32); Blood Urea Nitrogen 8 mg/dL (6-20); Calcium 9.2 mg/dL (8.5-10.5); Carbon Dioxide 24 mmol/L (22-29); Chloride 103 mmol/L (98-107); Creatinine Clr Calc Pharmacy 123.6382; Globulin 3.8 g/dL (1.3-4.6); Glomerular Filtration Rate 90.9 mL/min (90-130); Glucose 132 mg/dL (65-115); NT Pro B Type Natriuretic Pept 241 pg/mL (0-125); Osmolality Calculated 288 mOsm/kg (285-295); Potassium 3.5 mmol/L (3.5-5.1); Sodium 139 mmol/L (136-145); Total Bilirubin 0.2 mg/dL (0.15-1.2); Total Protein 7.6 g/dL (6.6-8.7)
[2024-09-20 20:00] VITALS: BP 125/71; PULSE 92; RESP 15; O2SAT 95
--- NOTE | 2024-09-20 20:42 | W.ED.URI ---
HPI - URI/Sore Throat General: Chief Complaint: Upper Respiratory Infection Stated Complaint: cough up blood, diff breathing Time Seen by Provider: 09/20/24 19:44 History of Present Illness: 44-year-old female patient with history of 2 weeks of cough, congestion, etc. She was placed on prednisone last week with very little improvement. Today she coughed up some blood-streaked sputum. This is the first time she has done that. She has had some chest discomfort with her cough. No fever. White sputum otherwise. No lower extremity swelling. Related Data Home Medications Medication Instructions Recorded Confirmed ibuprofen 800 mg tablet 800 mg PO Q8H PRN 10/29/23 09/15/24 furosemide 20 mg tablet (Lasix) 20 mg PO DAILY 09/15/24 09/15/24 Previous Rx's Medication Instructions Recorded albuterol sulfate 90 mcg/actuation 2 puff inhalation QID PRN 06/22/21 aerosol inhaler (ProAir HFA) shortness of breath or wheezing 30 days #6.7 grams albuterol sulfate 2.5 mg/3 mL 2.5 mg (3 mL) inhalation Q4H PRN 09/15/24 (0.083 %) solution for nebulization shortness of breath or wheezing 30 days #180 mL budesonide-formoterol HFA 160 2 puff inhalation BID #10.2 grams 09/15/24 mcg-4.5 mcg/actuation aerosol inhaler (Symbicort) prednisone 20 mg tablet 20 mg PO BID 5 days #10 tabs 09/15/24 doxycycline hyclate 100 mg tablet 100 mg PO BID 7 days #14 tabs 09/20/24 Allergies Allergy/AdvReac Type Severity Reaction Status Date / Time diphenhydramine Allergy ALGY-Difficulty Verified 09/20/24 17:27 [From Benadryl] Breathing codeine AdvReac ADR-Nausea Verified 09/20/24 17:27 hydrocodone [From Vicodin] AdvReac ADR-Nausea Verified 09/20/24 17:27 PFSH ED PFSH: Medical History No pertinent past medical history Denies: thyroid problems, diabetes, seizure disorders, DVT/PE. PCP: KELLY Cueto Essential hypertension Diagnosed in February 2020 being managed by PMD. 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 a educational specialist Surgical History Status post tubal ligation 2007--laparoscopic procedure Status post cholecystectomy 1999--laparoscopic procedure Family History Grandmother Breast cancer maternal, age at diagnosis unknown Denies family history of Colon cancer Ovarian cancer Diabetes Heart disease Hyperlipidemia Anesthesia complication Bleeding disorder Hypertension Uterine cancer Thyroid disease Stroke Social History Smoking and tobacco/nicotine status: current every day tobacco/nicotine user cigarettes Packs smoked per day: 1 Years cigarettes smoked: 27 [ Other cigarette details: started at age 16] Substance/Drug Use: never Physical Exam Const: COMMON NORMALS: no acute distress GENERAL APPEARANCE: cooperative; not ill appearing and not frail appearing HENMT: COMMON NORMALS: normocephalic, atraumatic and Normal external nose present HEAD & SCALP: normocephalic and atraumatic FACE & SINUS: normal facial exam and face symmetric NOSE: Normal external nose present Eye: COMMON NORMALS: Equal, round and reactive pupils present and EOMs intact bilaterally PUPIL: Yes Equal, round and reactive pupils present Neck/C-Spine: GENERAL: Yes trachea midline Chest: CHEST: Yes Symmetrical chest wall rise Resp: COMMON NORMALS: normal respiratory effort, No retractions, No use of accessory muscles and clear to auscultation bilaterally AUSCULTATION: clear to auscultation bilaterally Cardio: COMMON NORMALS: regular rate and regular rhythm RATE: regular rate RHYTHM: regular rhythm GI: COMMON NORMALS: Normal to inspection, nondistended, normoactive bowel sounds present Extremity: COMMON NORMALS: no pedal edema Neuro: TIA COMA SCALE: document GCS findings [place] coma scale eye opening: Spontaneous [place] coma scale verbal response: Orientated Tia coma scale motor response: Obey commands [place] coma scale total score: 15 SENSORY EXAM: Yes extremities (intact) Psych: COMMON NORMALS: speech normal SPEECH: Yes normal speech Skin: COMMON NORMALS: no rashes or lesions noted GENERAL SKIN EXAM: no rashes or lesions noted Course Vital Signs: Vital signs: Vital Signs Temperature 97.9 F 09/20/24 17:25 Pulse Rate 94 09/20/24 20:47 Respiratory Rate 16 09/20/24 20:47 Blood Pressure 134/69 09/20/24 20:47 Pulse Oximetry 94 09/20/24 20:47 Oxygen Delivery Me thod Room Air 09/20/24 17:25 MDM - URI/Sore Throat Medical Decision Making Patient's EKG is normal. White blood cell count is 22, but she has been on steroids for a week. Hemoglobin is 13, platelet count normal. BNP is 241. Chest x-ray does not reveal acute infiltrate. Due to ongoing symptoms, she will be treated with antibiotics. Outpatient follow-up. Lab Data 09/20/24 18:13 09/20/24 18:13 Radiology Impressions Chest X-Ray 09/20/24 17:16 IMPRESSION: 1. Bibasilar atelectasis versus minimal infiltrate. 2. Mild cardiomegaly. 3. Emphysematous changes suspected. Laboratory Results WBC 21.76 10^3/uL (3.29-11.43) H 09/20/24 18:13 RBC 4.61 10^6/uL (3.85-5.65) 09/20/24 18:13 Hgb 13.20 g/dL (11.27-16.99) 09/20/24 18:13 Hct 41.0 % (36-47) 09/20/24 18:13 MCV 88.9 fl (85-98) 09/20/24 18:13 MCH 28.6 pg (27-33) 09/20/24 18:13 MCHC 32.2 g/dL (30-55) 09/20/24 18:13 RDW 15.1 % (12.1-15.1) 09/20/24 18:13 Plt Count 303 10^3/cmm (157-399) 09/20/24 18:13 MPV 10.7 fL (7.4-10.4) H 09/20/24 18:13 Neut % (Auto) 73.8 % 09/20/24 18:13 Lymph % (Auto) 19.8 % 09/20/24 18:13 [place] % (Auto) 5.1 % 09/20/24 18:13 Eos % (Auto) 0.1 % 09/20/24 18:13 Baso % (Auto) 0.3 % 09/20/24 18:13 Neut # (Auto) 16.05 10^3/uL (1.8-7.7) H 09/20/24 18:13 Lymph # (Auto) 4.3 10^3/uL (0.8-4.8) 09/20/24 18:13 [place] # (Auto) 1.1 10^3/uL (0.2-0.9) H 09/20/24 18:13 Eos # (Auto) 0.0 10^3/uL (0.0-0.8) 09/20/24 18:13 Baso # (Auto) 0.1 10^3/uL (0.0-0.1) 09/20/24 18:13 Nucleated RBC % (auto) 0 % 09/20/24 18:13 Nucleated RBCs # 0.0 /100WBC 09/20/24 18:13 Sodium 139 mmol/L (136-145) 09/20/24 18:13 Potassium 3.5 mmol/L (3.5-5.1) 09/20/24 18:13 Chloride 103 mmol/L (98-107) 09/20/24 18:13 Carbon Dioxide 24 mmol/L (22-29) 09/20/24 18:13 Anion Gap 15.5 (5-19) 09/20/24 18:13 BUN 8 mg/dL (6-20) 09/20/24 18:13 Creatinine 0.7 mg/dL (0.5-0.9) 09/20/24 18:13 GFR Calculation 90.9 mL/min (90-130) 09/20/24 18:13 Glucose 132 mg/dL (65-115) H 09/20/24 18:13 Calculated Osmolality 288 mOsm/kg (285-295) 09/20/24 18:13 Calcium 9.2 mg/dL (8.5-10.5) 09/20/24 18:13 Total Bilirubin 0.2 mg/dL (0.15-1.2) 09/20/24 18:13 AST 18 U/L (0-32) 09/20/24 18:13 ALT 39 U/L (0-33) H 09/20/24 18:13 Alkaline Phosphatase 85 U/L (35-105) 09/20/24 18:13 NT-Pro-B Natriuret Pep 241 pg/mL (0-125) H 09/20/24 18:13 Total Protein 7.6 g/dL (6.6-8.7) 09/20/24 18:13 Albumin 3.8 g/dL (3.5-5.2) 09/20/24 18:13 Globulin 3.8 g/dL (1.3-4.6) 09/20/24 18:13 All radiology interpretation(s) finalized by discharge Discharge Plan Discharge Patient Disposition: Home Clinical Impression: Acute bronchitis, Atypical pneumonia Condition: Stable Prescriptions: New doxycycline hyclate 100 mg tablet 100 mg PO BID 7 Days Qty: 14 0RF No Action ibuprofen 800 mg tablet 800 mg PO Q8H PRN furosemide [Lasix] 20 mg tablet 20 mg PO DAILY budesonide-formoterol [Symbicort] 160-4.5 mcg/actuation HFA aerosol inhaler 2 puff inhalation BID Qty: 10.2 0RF albuterol sulfate 2.5 mg /3 mL (0.083 %) solution for nebulization 2.5 mg INHALATION Q4H PRN (Reason: shortness of breath or wheezing) 30 Days Qty: 180 11RF Rx Instructions: 340B, please prednisone 20 mg tablet 20 mg PO BID 5 Days Qty: 10 0RF albuterol sulfate [ProAir HFA] 90 mcg/actuation HFA aerosol inhaler 2 puff INHALATION QID PRN (Reason: shortness of breath or wheezing) 30 Days Qty: 6.7 11RF Rx Instructions: 340B, please Discharge Orders: Discharge ED (Routine); Ordered 09/20/24 Ordered By: Brian Whitt Referrals: Cori Brooke FNP-C [Primary Care Provider] - 1-3 days Patient Instructions: Acute Bronchitis (ED), Pneumonia (ED), Opioid Safety, Pain Management Activity Restrictions/Additional Instructions: Return for continued blood in his sputum despite 3-4 doses of antibiotics, fever despite 3-4 doses of antibiotics, worsening shortness of breath despite treatment, other concerning symptoms. See your doctor next week for follow-up. Humidified air may help as well. Continue using your albuterol. Coding Level of Care Code ED Alternative Education Teacher for Machelle Larios
[2024-09-20] MEDS: doxycycline 100 mg Tablet PO (20:46)
[2024-09-20 20:47] VITALS: BP 134/69; PULSE 94; RESP 16; O2SAT 94
== END 2024-09-20 20:54 | disposition home or self-care (01) ==
PROVIDERS: Emergency Medicine; Emergency Provider Emergency Medicine; PCP Nurse Practitioner Family
DX: J20.9 Acute bronchitis, unspecified (principal); J18.9 Pneumonia, unspecified organism; F17.210 Nicotine dependence, cigarettes, uncomplicated; I10 Essential (primary) hypertension
CPT/HCPCS: 36415; 71045; 80053; 83880; 85025; 93005; 99285

== ENCOUNTER 2025-01-19 10:07 | Emergency (ER) | payer SELFPAY ==
[2025-01-19 10:17] VITALS: BP 164/98; PULSE 79; RESP 20; TEMP 36.4; O2SAT 99
[2025-01-19 11:54] LABS: Bilirubin Urine Negative (Negative); Blood Urine Negative (Negative); Glucose Urine UA Negative (Normal); Ketones Urine Negative (Negative); Leukocyte Esterase Urine Negative (Negative); Nitrate Urine Negative (Negative); Protein Urine Trace (Negative); Specific Gravity, Urine 1.023 (1.005-1.030); Urine Appearance Turbid (CLEAR); Urine Color Yellow (Yellow)
[2025-01-19 11:56] LABS: Bacteria Urine 4+ /hpf; Hyaline Casts Urine 2.46 /lpf; RBC Urine 51-100 /hpf (0-2); Squamous Epithelial Cell Urine 51-100 /hpf (0-5)
[2025-01-19 12:21] VITALS: BP 151/81; PULSE 81; O2SAT 98
[2025-01-19 12:27] LABS: UA Slide Review UA Slide Review Perf
[2025-01-19 12:28] LABS: Add Urine Culture? Yes
[2025-01-19 12:48] VITALS: RESP 20; O2SAT 98
[2025-01-19] MEDS: morphine 4 mg/mL SDV 1 mL 2 MG IVP (12:48)
--- NOTE | 2025-01-19 13:12 | ED_ITS ---
HPI - Abdominal Pain 2 General: Chief Complaint: Abdominal Pain Stated Complaint: right side back/abdominal pain Time Seen by Provider: 01/19/25 11:42 History of Present Illness: 44-year-old female presents emergency ro om complaining of right flank pain radiating into her right lower quadrant. She denies any dysuria urgency or frequency no hematuria she has had this beginning yesterday that seems to be worsening. Associated Symptoms: Denies chills, dysuria and fever(s) Related Data Previous Rx's ?Medication ?Instructions ?Recorded hydrocodone 5 mg-acetaminophen 325 1 tab PO Q6H PRN pa in #20 tabs 01/19/25 mg tablet promethazine 25 mg tablet 25 mg PO Q6H PRN nausea and 01/19/25 vomiting #20 tabs sulfamethoxazole 800 1 tab PO BID #14 tabs mg-trimethoprim 160 mg tablet (Bactrim DS) tamsulosin 0.4 mg capsule 0.4 mg PO DAILY #30 caps Allergies Allergy/AdvReac Type Severity Reaction Status Date / Time diphenhydramine (From Allergy ALGY-Difficulty Verified 09/20/24 17:27 Benadryl) Breathing codeine AdvReac ADR-Nausea Verified 09/20/24 17:27 hydrocodone (From Vicodin) AdvReac ADR-Nausea Verified 09/20/24 17:27 Review of Systems 2 Const: Denies: fever(s) or chills Card: Denies: chest pain Resp: Denies: dyspnea GI: Denies: abdominal pain : Denies: dysuria, urinary frequency or urinary urgency Musc: Denies: neck pain or back pain Skin/Breast: Denies: rash PFSH ED 2 PFSH: Medical History No pertinent past medical history Denies: thyroid problems, diabetes, seizure disorders, DVT/PE. PCP: KELLY Cueto Essential hypertension Diagnosed in February 2020 being managed by PMD. 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 a manager of health Surgical History Status post tubal ligation 2007--laparoscopic procedure Status post cholecystectomy 1999--laparoscopic procedure Family History Grandmother Breast cancer maternal, age at diagnosis unknown Denies family history of Colon cancer Ovarian cancer Diabetes Heart disease Hyperlipidemia Anesthesia complication Bleeding disorder Hypertension Uterine cancer Thyroid disease Stroke Social History Smoking and tobacco/nicotine status: current every day tobacco/nicotine user cigarettes Packs smoked per day: 1 Years cigarettes smoked: 27 [ Other cigarette details: started at age 16] Substance/Drug Use: never Physical Exam 2 Const: COMMON NORMALS: no acute distress GENERAL APPEARANCE: cooperative and comfortable ORIENTATION/CONSCIOUSNESS: Yes awake, Yes oriented to person, Yes oriented to place and Yes oriented to time HENMT: COMMON NORMALS: normocephalic, atraumatic and hearing grossly normal bilaterally HEAD & SCALP: normocephalic and atraumatic Resp: COMMON NORMALS: normal respiratory effort, No retractions, No use of accessory muscles and clear to auscultation bilaterally AUSCULTATION: clear to auscultation bilaterally Cardio: COMMON NORMALS: regular rate, regular rhythm and No murmurs present (Cardio) RATE: regular rate RHYTHM: regular rhythm GI: COMMON NORMALS: Soft to palpation and No hepatosplenomegaly present A USCULTATION: Yes normoactive bowel sounds PALPATION: Yes Soft to palpation, No Tenderness to palpation present (GI), No Guarding due to palpation present (GI) and Yes No hepatosplenomegaly present Extremity: COMMON NORMALS: normal to inspection, capillary refill normal, no clubbing, cyanosis or edema, no calf tenderness and no pedal edema Neuro: SENSORIUM/ORIENTATION: Yes oriented to person, Yes oriented to place and Yes oriented to time Skin: COMMON NORMALS: no rashes or lesions noted GENERAL SKIN EXAM: no rashes or lesions noted Course 2 Vital Signs: Vital signs: Vital Signs Temperature 97.5 F L 01/19/25 10:17 Pulse Rate 63 01/19/25 14:27 Respiratory Rate 20 H 01/19/25 12:48 Blood Pressure 137/82 01/19/25 14:27 Pulse Oximetry 96 01/19/25 14:27 MDM - Abdominal Pain Medical Decision Making Suspect the patient passed a kidney stone we did not see a kidney stone on the right there is a area on the left the looks questionable but Dr. Jain told me it has been there for some time she had mostly blood in urine she has not had any dysuria urgency or frequency. We did go ahead and start her on Bactrim for now until the urine culture gets back gave her pain medications I have her strain her urine to we will have her follow-up with urology she has worsening symptoms return Lab Data 01/19/25 12:15 01/19/25 12:15 Labs/Radiology: Radiology Impressions Abdomen/Pelvis CT 01/19/25 13:14 IMPRESSION: 1. Normal noncontrast CT abdomen and pelvis. 2. No renal obstruction or calcifications. 3. Normal appendix. 4. No GI tract obstruction. 5. Prior cholecystectomy. 6. Mild hepatic steatosis and hepatomegaly. Laboratory Results WBC 8.84 10^3/uL (3.29-11.43) 01/19/25 12:15 RBC 4.93 10^6/uL (3.85-5.65) 01/19/25 12:15 Hgb 14.40 g/dL (11.27-16.99) 01/19/25 12:15 Hct 43.4 % (36-47) 01/19/25 12:15 MCV 88.0 fl (85-98) 01/19/25 12:15 MCH 29.2 pg (27-33) 01/19/25 12:15 MCHC 33.2 g/dL (30-55) 01/19/25 12:15 RDW 13.9 % (12.1-15.1) 01/19/25 12:15 Plt Count 229 10^3/cmm (157-399) 01/19/25 12:15 MPV 11.4 fL (7.4-10.4) H 01/19/25 12:15 Neut % (Auto) 65.7 % 01/19/25 12:15 Lymph % (Auto) 22.7 % 01/19/25 12:15 [place] % (Auto) 7.8 % 01/19/25 12:15 Eos % (Auto) 3.1 % 01/19/25 12:15 Baso % (Auto) 0.2 % 01/19/25 12:15 Neut # (Auto) 5.81 10^3/uL (1.8-7.7) 01/19/25 12:15 Lymph # (Auto) 2.0 10^3/uL (0.8-4.8) 01/19/25 12:15 [place] # (Auto) 0.7 10^3/uL (0.2-0.9) 01/19/25 12:15 Eos # (Auto) 0.3 10^3/uL (0.0-0.8) 01/19/25 12:15 Baso # (Auto) 0.0 10^3/uL (0.0-0.1) 01/19/25 12:15 Nucleated RBC % (auto) 0 % 01/19/25 12:15 Nucleated RBCs # 0.0 /100WBC 01/19/25 12:15 Sodium 137 mmol/L (136-145) 01/19/25 12:15 Potassium 4.3 mmol/L (3.5-5.1) 01/19/25 12:15 Chloride 105 mmol/L (98-107) 01/19/25 12:15 Carbon Dioxide 22 mmol/L (22-29) 01/19/25 12:15 Anion Gap 14.3 (5-19) 01/19/25 12:15 BUN 8 mg/dL (6-20) 01/19/25 12:15 Creatinine 0.8 mg/dL (0.5-0.9) 01/19/25 12:15 GFR Calculation 77.9 mL/min (90-130) L 01/19/25 12:15 Glucose 101 mg/dL (65-115) 01/19/25 12:15 Calculated Osmolality 282 mOsm/kg (285-295) L 01/19/25 12:15 Calcium 8.7 mg/dL (8.5-10.5) 01/19/25 12:15 Total Bilirubin 0.2 mg/dL (0.15-1.2) 01/19/25 12:15 AST 30 U/L (0-32) 01/19/25 12:15 ALT 42 U/L (0-33) H 01/19/25 12:15 Alkaline Phosphatase 92 U/L (35-105) 01/19/25 12:15 Total Protein 7.3 g/dL (6.6-8.7) 01/19/25 12:15 Albumin 3.5 g/dL (3.5-5.2) 01/19/25 12:15 Globulin 3.8 g/dL (1.3-4.6) 01/19/25 12:15 Urine Color Yellow (Yellow) 01/19/25 11:41 Urine Appearance Turbid (CLEAR) A 01/19/25 11:41 Urine pH 5.0 (5-7) 01/19/25 11:41 Ur Specific [place] 1.023 (1.005-1.030) 01/19/25 11:41 Urine Protein Trace (Negative) A 01/19/25 11:41 Urine Glucose (UA) Negative (Normal) 01/19/25 11:41 Urine Ketones Negative (Negative) 01/19/25 11:41 Urine Blood Negative (Negative) 01/19/25 11:41 Urine Nitrate Negative (Negative) 01/19/25 11:41 Urine Bilirubin Negative (Negative) 01/19/25 11:41 Urine Urobilinogen 1.0 mg/dL (Negative) 01/19/25 11:41 Ur Leukocyte Esterase Negative (Negative) 01/19/25 11:41 Urine RBC 51-100 /hpf (0-2) H 01/19/25 11:41 Urine WBC 6-10 /hpf (0-5) 01/19/25 11:41 Ur Squamous Epith Cells 51-100 /hpf (0-5) 01/19/25 11:41 Amorphous Sediment Not Reportable 01/19/25 11:41 Urine Bacteria 4+ /hpf (NONE) H 01/19/25 11:41 Hyaline Casts 2.46 /lpf 01/19/25 11:41 Urine Yeast 1+ /hpf H 01/19/25 11:41 All radiology interpretation(s) finalized by discharge Discharge Plan Discharge Patient Disposition: Home Clinical Impression: Cystitis, Nephrolithiasis Condition: Stable Prescriptions: New hydrocodone-acetaminophen 5-325 mg tablet 1 tab PO Q6H PRN (Reason: pain) Qty: 20 0RF promethazine 25 mg tablet 25 mg PO Q6H PRN (Reason: nausea and vomiting) Qty: 20 0RF tamsulosin 0.4 mg capsule 0.4 mg PO DAILY Qty: 30 0RF sulfamethoxazole-trimethoprim [Bactrim DS] 800-160 mg tablet 1 tab PO BID Qty: 14 0RF Discharge Orders: Discharge ED (Routine); Ordered 01/19/25 Ordered By: Tha Patel Referrals: Edwardo,Cori, BRAND ANALYST-C [Primary Care Provider, Family Practice] Discharge Diet: Usual diet Discharge Activity: Increase activity as tolerated Patient Instructions: Kidney Stones (ED), How to Strain Your Urine (ED), Opioid Safety, Pain Management Activity Restrictions/Additional Instructions: Thank you for choosing [facility] [place] for your healthcare needs today. It is very important that you follow up as instructed or that you return to the Emergency Department should you have concerns or if your condition changes or worsens in any way. You were seen in the emergency room with complaints of right flank pain. Urine did show small amount of blood. Suspect you may have passed a stone. Recommend you strain your urine. You are given nausea and pain medications to use as needed as well as tamsulosin to help the stone pass sooner. assistant site manager will make arrangements for you to follow-up with urology We also had you take. Also recommend you start Bactrim DS 1 p.o. twice daily. Print Language: Japanese Coding Level of Care Code ED Campus Executive Director for Machelle Larios
--- NOTE | 2025-01-19 13:14 | CT_ITS ---
WS: [id number] CT ABDOMEN AND PELVIS NONCONTRAST HISTORY: flank pain, RIGHT TECHNIQUE: Imaging performed through the abdomen and pelvis. Coronal and sagittal reformats are submitted. All CT scans at [facility] use at least one of these dose optimization techniques: automated exposure control; mA and/or kV adjustment per patient size (includes targeted exams where dose is matched to clinical indication); or iterative reconstruction. DLP: 992.44 mGy.cm COMPARISON: 06/24/2024 Lower thorax: Lung bases are clear. Visualized heart is normal. No hiatal hernia. Liver: Mild liver enlargement with hepatic steatosis. Gallbladder: Prior cholecystectomy. No bile duct dilatation. Pancreas: Normal size and attenuation. Normal pancreatic duct. No pancreatitis or mass. Spleen: Top normal size spleen at 13 cm. Adrenal glands: Normal. No mass. Right kidney: Normal size kidney with no mass or hydronephrosis. Left kidney: Normal size kidney with no mass or hydronephrosis. Aorta: Normal abdominal aorta, no aneurysm or atherosclerosis. No free fluid, intraperitoneal air or significant lymphadenopathy. GI tract: Normal noncontrast imaging of the stomach, small bowel and colon. No obstruction or wall thickening. Normal appendix. Abdominal wall: Negative. No hernia. Pelvis: No free fluid or adenopathy. Negative urinary bladder. Prior hysterectomy. Osseous structures: Unremarkable. CT/CT kidney stone [id number] IMPRESSION: 1. Normal noncontrast CT abdomen and pelvis. 2. No renal obstruction or calcifications. 3. Normal appendix. 4. No GI tract obstruction. 5. Prior cholecystectomy. 6. Mild hepatic steatosis and hepatomegaly.
[2025-01-19 13:29] LABS: Basophils % 0.2 %; Eosinophils # 0.3 10^3/uL (0.0-0.8); Eosinophils % 3.1 %; Hematocrit 43.4 % (36-47); Lymphocytes % 22.7 %; Mean Corpuscular HGB Conc 33.2 g/dL (30-55); Mean Corpuscular Hemoglobin 29.2 pg (27-33); Mean Platelet Volume 11.4 fL (7.4-10.4); Monocytes # 0.7 10^3/uL (0.2-0.9); Monocytes % 7.8 %; Neutrophils # 5.81 10^3/uL (1.8-7.7); Neutrophils % 65.7 %; Nucleated Red Blood Cells % 0 %; Platelet Count 229 10^3/cmm (157-399); Red Blood Count 4.93 10^6/uL (3.85-5.65); Red Cell Distribution Width 13.9 % (12.1-15.1); White Blood Count 8.84 10^3/uL (3.29-11.43)
[2025-01-19 13:55] LABS: Alanine Aminotransferase 42 U/L (0-33); Albumin Level 3.5 g/dL (3.5-5.2); Alkaline Phosphatase 92 U/L (35-105); Anion Gap 14.3 (5-19); Aspartate Amino Transferase 30 U/L (0-32); Blood Urea Nitrogen 8 mg/dL (6-20); Calcium 8.7 mg/dL (8.5-10.5); Carbon Dioxide 22 mmol/L (22-29); Chloride 105 mmol/L (98-107); Globulin 3.8 g/dL (1.3-4.6); Glomerular Filtration Rate 77.9 mL/min (90-130); Glucose 101 mg/dL (65-115); Osmolality Calculated 282 mOsm/kg (285-295); Potassium 4.3 mmol/L (3.5-5.1); Sodium 137 mmol/L (136-145); Total Bilirubin 0.2 mg/dL (0.15-1.2); Total Protein 7.3 g/dL (6.6-8.7)
[2025-01-19] MEDS: ketorolac 30 mg/mL INJ IVP (14:15)
[2025-01-19 14:27] VITALS: BP 137/82; PULSE 63; O2SAT 96
--- NOTE | 2025-01-25 09:09 | DCPLANNER ---
Referral for [facility]
== END 2025-01-19 14:28 | disposition home or self-care (01) ==
PROVIDERS: Emergency Provider Family Medicine; PCP Nurse Practitioner Family
DX: N30.90 Cystitis, unspecified without hematuria (principal); N20.0 Calculus of kidney; I10 Essential (primary) hypertension
CPT/HCPCS: 36415; 74176; 80053; 81001; 85025; 87086; 96374; 96375; 99285; J1885; J2270

== ENCOUNTER → 2025-04-17 16:04 | Outpatient (BNVA) | payer SELFPAY | PROVIDERS: PCP Nurse Practitioner Family; Visit Provider Emergency Medicine | DX: M25.532 Pain in left wrist (principal) | CPT/HCPCS: 73110 ==

== ENCOUNTER 2025-04-30 18:51 | Emergency (ER) | payer SELFPAY ==
[2025-04-30] VITALS (12 sets, daily range): BP systolic 123–147; BP diastolic 79–90; PULSE 65–78; RESP 13–18; TEMP 36.6; O2SAT 93–100; BMI 40.3
--- NOTE | 2025-04-30 19:02 | ECG_ITS ---
[facility] Test Date: 2025-04-30 Pat Name: Umberto Telles Department: Room: Gender: Female Resume Specialist: : 1980 Requested By: Brian Fraire Order Number: [id number] Case MD: Sudarshan Segovia M.D. Measurements Intervals [place] Rate: 77 P: 64 PA: 150 QRS: 49 QRSD: 107 T: 47 QT: 404 QTc: 457 Interpretive Statements SINUS RHYTHM POSSIBLE LEFT ATRIAL ENLARGEMENT [-0.1mV P-WAVE IN V1/V2] Compared to ECG 09/20/2024 17:21:49 No significant changes Electronically Signed On 05-01-2025 08:42:31 CDT by Sudarshan Segovia M.D. [email or web address] [id number]
--- NOTE | 2025-04-30 19:07 | ED_ITS ---
HPI - Chest Pain 2 General: Chief Complaint: Chest Pain Stated Complaint: CP Time Seen by Provider: 04/30/25 18:53 History of Present Illness: Patient is a 44-year-old female who presents with acute onset of chest pain that began at approximately 3:00 PM today while sitting in the floor with her grandson. The pain is located in the upper chest area and is described as intermittent with sharp exacerbations. Patient reports associated nausea and production of phlegm of unknown color. She denies fever, vomiting, diarrhea, or lower extremity swelling. The pain is exacerbated by deep breathing. Patient reports some improvement in pain after receiving pain medication in the ambulance but denies relief with nitroglycerin administration. She denies any similar episodes in the past, even with her asthma exacerbations. Patient denies recent physical exertion, or wheezing prior to the onset of symptoms. Related Data Previous Rx's ?Medication ?Instructions ?Recorded albuterol sulfate 2.5 mg/3 mL 2.5 mg (3 mL) continuous 04/20/25 (0.083 %) solution for nebulization nebulization Q4H P RN shortness of breath or wheezing #75 mL budesonide-formoterol HFA 160 2 puff inhalation BID #1 0.2 grams 04/20/25 mcg-4.5 mcg/actuation aerosol inhaler (Symbicort) hydrochlorothiazide 25 mg tablet 25 mg PO DAILY #30 ta bs 04/20/25 left wrist splint #1 ea 04/20/25 nystatin 100,000 unit/mL oral 400,000 unit (4 mL) PO Q ID 7 days 04/20/25 suspension #120 mL diclofenac sodium 1 % topical gel 4 g topical QID #100 grams 04/28/25 (Voltaren Arthritis Pain) potassium chloride 10 mEq 10 meq PO DAILY #30 tabs tablet,extended release (Klor-Con) Allergies Allergy/AdvReac Type Severity Reaction Status Date / Time diphenhydramine (From Allergy ALGY-Difficulty Verified 04/28/25 13:14 Benadryl) Breathing codeine AdvReac ADR-Nausea Verified 04/28/25 13:14 hydrocodone (From Vicodin) AdvReac ADR-Nausea Verified 04/28/25 13:14 Review of Systems 2 Narrative: Constitutional:. Denies fever. Respiratory: Reports some phlegm production. Denies significant wheezing. Cardiovascular: Denies lower extremity swelling. Gastrointestinal: Reports nausea. Denies vomiting or diarrhea. Musculoskeletal: Denies calf tenderness or swelling. PFSH ED 2 PFSH: Medical History No pertinent past medical history Denies: thyroid problems, diabetes, seizure disorders, DVT/PE. Essential hypertension Diagnosed in February 2020 being managed by PMD. 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 a entry engineer Surgical History Hx of hysterectomy Status post tubal ligation 2007--laparoscopic procedure Status post cholecystectomy 1999--laparoscopic procedure Family History Grandmother Breast cancer maternal, age at diagnosis unknown Denies family history of Colon cancer Ovarian cancer Diabetes Heart disease Hyperlipidemia Anesthesia complication Bleeding disorder Hypertension Uterine cancer Thyroid disease Stroke Social History Smoking and tobacco/nicotine status: never used tobacco/nicotine Alcohol intake: current Alcohol intake frequency: holidays/special occasions only Substance/Drug Use: never Marital status: Number of children: 4 Number of grandchildren: 2 Current occupational status: employed Supplemental PFSH Information: Asthma Physical Exam 2 Const: GENERAL APPEARANCE: cooperative and anxious; not frail appearing HENMT: COMMON NORMALS: normocephalic, atraumatic and Normal external nose present HEAD & SCALP: normocephalic and atraumatic FACE & SINUS: normal facial exam and face symmetric NOSE: Normal external nose present Eye: COMMON NORMALS: Equal, round and reactive pupils present and EOMs intact bilaterally PUPIL: Yes Equal, round and reactive pupils present Neck/C-Spine: GENERAL: Yes trachea midline Chest: CHEST: Yes Symmetrical chest wall rise and Yes tenderness (diffuse upper chest) Resp: COMMON NORMALS: normal respiratory effort, No retractions, No use of accessory muscles and clear to auscultation bilaterally AUSCULTATION: clear to auscultation bilaterally Cardio: COMMON NORMALS: regular rate and regular rhythm RATE: regular rate RHYTHM: regular rhythm GI: COMMON NORMALS: Normal to inspection, nondistended, normoactive bowel sounds present Extremity: COMMON NORMALS: no pedal edema Neuro: TIA COMA SCALE: document GCS findings [place] coma scale eye opening: Spontaneous Tia coma scale verbal response: Orientated [place] coma scale motor response: Obey commands Tia coma scale total score: 15 S ENSORY EXAM: Yes extremities (intact) Psych: COMMON NORMALS: speech normal SPEECH: Yes normal speech Skin: COMMON NORMALS: no rashes or lesions noted GENERAL SKIN EXAM: no rashes or lesions noted Course 2 Vital Signs: Vital signs: Vital Signs Temperature 97.9 F 04/30/25 18:52 Pulse Rate 71 05/01/25 00:47 Respiratory Rate 18 05/01/25 00:47 Blood Pressure 136/94 05/01/25 00:47 Pulse Oximetry 94 05/01/25 00:47 Oxygen Delivery Me thod Room Air 04/30/25 20:16 MDM - Chest Pain Medical Decision Making The patient's vitals are quite stable. She is satting normally on room air. She is nontachycardic. Her chest pain is somewhat reproducible on palpation in the upper chest. Chest x-ray reveals improvement in her bibasilar atelectasis from prior. White blood cell count however is 20. She did receive a cortisone injection a couple of days ago which could raise her white blood cell count. She has had high white counts in the past. Her potassium was quite low at 2.8. This is repleted both orally and IV. She is on hydrochlorothiazide, which may be the culprit. Will place her on 10 mill equivalents daily, have her recheck in 2 to 3 days. Return for any worsening symptoms. Her troponins were less than 6 at 0 and 2 hours. Her EKG was normal despite hypokalemia. No evidence of hypokalemia present on EKG. Lab Data 04/30/25 19:36 04/30/25 19:36 Radiology Impressions Chest X-Ray 04/30/25 20:34 IMPRESSION: Bibasilar opacities decreased from prior examination favored to represent atelectasis although superimposed infection is not excluded. Laboratory Results WBC 19.94 10^3/uL (3.29-11.43) H 04/30/25 19:36 RBC 5.01 10^6/uL (3.85-5.65) 04/30/25 19:36 Hgb 14.50 g/dL (11.27-16.99) 04/30/25 19:36 Hct 42.6 % (36-47) 04/30/25 19:36 MCV 85.0 fl (85-98) 04/30/25 19:36 MCH 28.9 pg (27-33) 04/30/25 19:36 MCHC 34.0 g/dL (30-55) 04/30/25 19:36 RDW 13.9 % (12.1-15.1) 04/30/25 19:36 Plt Count 289 10^3/cmm (157-399) 04/30/25 19:36 MPV 11.9 fL (7.4-10.4) H 04/30/25 19:36 Lymph % (Auto) Not Reportable 04/30/25 19:36 Pope % (Auto) Not Reportable 04/30/25 19:36 Lymph # (Auto) Not Reportable 04/30/25 19:36 Pope # (Auto) Not Reportable 04/30/25 19:36 Total Counted 100 (0-100) 04/30/25 19:36 Atypical Lymphs % 7.0 % (0-5) H 04/30/25 19:36 Absolute Neutrophils 13.8 10^3/cmm (1.4-6.5) H 04/30/25 19:36 Segmented Neutrophils 65 % 04/30/25 19:36 Band Neutrophils 4.0 % 04/30/25 19:36 Absolute Lymphocytes 5.6 10^3/cmm (1.2-3.4) H 04/30/25 19:36 Lymphocytes (Manual) 21 % 04/30/25 19:36 Monocytes (Manual) 3.0 % 04/30/25 19:36 Absolute Monocytes 0.6 10^3/cmm (0.1-0.6) 04/30/25 19:36 Eosinophils (Manual) 0 % 04/30/25 19:36 Absolute Eosinophils 0.0 10^3/cmm (0.0-0.7) 04/30/25 19:36 Basophils (Manual) 0.0 % 04/30/25 19:36 Absolute Basophils 0.0 10^3/cmm (0.0-0.2) 04/30/25 19:36 Platelet Estimate Normal (Normal) 04/30/25 19:36 Giant Platelets Trace 04/30/25 19:36 Sodium 138 mmol/L (136-145) 04/30/25 19:36 Potassium 2.8 mmol/L (3.5-5.1) L* 04/30/25 19:36 Chloride 99 mmol/L (98-107) 04/30/25 19:36 Carbon Dioxide 25 mmol/L (22-29) 04/30/25 19:36 Anion Gap 16.8 (5-19) 04/30/25 19:36 BUN 11 mg/dL (6-20) 04/30/25 19:36 Creatinine 0.8 mg/dL (0.5-0.9) 04/30/25 19:36 GFR Calculation 77.9 mL/min (90-130) L 04/30/25 19:36 Glucose 101 mg/dL (65-115) 04/30/25 19:36 Calculated Osmolality 286 mOsm/kg (285-295) 04/30/25 19:36 Calcium 8.7 mg/dL (8.5-10.5) 04/30/25 19:36 Total Bilirubin 0.2 mg/dL (0.15-1.2) 04/30/25 19:36 AST 24 U/L (0-32) 04/30/25 19:36 ALT 34 U/L (0-33) H 04/30/25 19:36 Alkaline Phosphatase 97 U/L (35-105) 04/30/25 19:36 Troponin T Baseline < 6 ng/L (0-10) 04/30/25 19:36 Troponin T 120 Minute < 6.0 ng/L (0-10) 04/30/25 21:52 Delta Troponin T 0 ABS# (0-10) 04/30/25 21:52 NT-Pro-B Natriuret Pep 53 pg/mL (0-125) 04/30/25 19:36 Total Protein 7.9 g/dL (6.6-8.7) 04/30/25 19:36 Albumin 3.9 g/dL (3.5-5.2) 04/30/25 19:36 Globulin 4.0 g/dL (1.3-4.6) 04/30/25 19:36 Lipase 35 U/L (13-60) 04/30/25 19:36 HCG, Qual Negative (Negative) 04/30/25 19:36 All radiology interpretation(s) finalized by discharge Discharge Plan Discharge Patient Disposition: Home Clinical Impression: Chest pain, Acute hypokalemia Condition: Stable Prescriptions: New potassium chloride [Klor-Con 10] 10 mEq tablet extended release 10 meq PO DAILY Qty: 30 0RF No Action (DME) left wrist splint See Rx Instructions .Route .MEDSUPPLY Qty: 1 0RF Rx Instructions: As directed nystatin 100,000 unit/mL suspension 400,000 unit PO QID 7 Days Qty: 120 0RF Rx Instructions: swish and spit hydrochlorothiazide 25 mg tablet 25 mg PO DAILY Qty: 30 2RF albuterol sulfate 2.5 mg /3 mL (0.083 %) solution for nebulization 2.5 mg continuous nebulization Q4H PRN (Reason: shortness of breath or wheezing) Qty: 75 1RF Rx Instructions: 340B plan budesonide-formoterol [Symbicort] 160-4.5 mcg/actuation HFA aerosol inhaler 2 puff inhalation BID Qty: 10.2 11RF Rx Instructions: 340B plan diclofenac sodium [Voltaren Arthritis Pain] 1 % gel 4 g topical QID Qty: 100 0RF Rx Instructions: apply to single knee, ankle, foot; for foot includes sole/toes/top of foot Discharge Orders: Discharge ED (Routine); Ordered 04/30/25 Ordered By: Brian Whitt Referrals: Chidi Rivera INDUSTRIAL SOCIOLOGIST [Primary Care Provider, Family Practice] - 1-3 days Patient Instructions: Chest Pain (ED), Hypokalemia (ED), Opioid Safety, Pain Management, Patient Portal & Zoila Instructions Activity Restrictions/Additional Instructions: Return for repeated episodes or worsening chest discomfort, shortness of breath, any other concerning symptoms. You need to have your potassium rechecked on Saturday or Saturday. Call your doctor Saturday morning to schedule this. Your white blood cell count was also high this evening. This should be rechecked as well. It could be because of your cortisone injection you received, but there could be other causes. Medication as directed. Print Language: Luxembourgish Coding Level of Care Code ED Cushion Sewer for Machelle Larios
[2025-04-30] MEDS: ondansetron 2 mg/ML SDV 2 mL 4 MG IVP (19:32)
[2025-04-30] MEDS: morphine 4 mg/mL SDV 1 mL IVP (19:32)
[2025-04-30 19:58] LABS: HCG, Serum Qual Negative (Negative)
--- NOTE | 2025-04-30 20:34 | ECG_ITS ---
[facility] Test Date: [facility]25-04-30 Pat Name: Umberto Telles Department: Room: Gender: Female Competitive Intelligence Analyst: : 1980 Requested By: Brian Fraire Order Number: [id number] Manpreet MD: Sudarshan Segovia M.D. Measurements Intervals [place] Rate: 68 P: 58 TN: 139 QRS: 41 QRSD: 106 T: 28 QT: 421 QTc: 451 Interpretive Statements SINUS RHYTHM NONSPECIFIC ST & T-WAVE ABNORMALITY Compared to ECG 04/30/2025 18:59:48 T-wave abnormality now present Electronically Signed On 05-01-2025 08:42:22 CDT by Sudarshan Segovia M.D. [email or web address] [id number]
--- NOTE | 2025-04-30 20:34 | XRR_ITS ---
PROCEDURE INFORMATION: Exam: XR Chest Exam date and time: 04/30/2025 8:41 PM Age: 44 years old Clinical indication: Pain; Chest pressure; Additional info: Cp TECHNIQUE: Imaging protocol: Radiologic exam of the chest. Views: 1 view. COMPARISON: CR XR chest 1V portable [id number] 09/20/2024 6:37 PM FINDINGS: Lungs: Bibasilar opacities decreased from prior exam. Mild emphysematous changes. Pleural spaces: Unremarkable. No pleural effusion. No pneumothorax. Heart/Mediastinum: The cardiomediastinal silhouette is within normal limits. Bones/joints: Unremarkable. XR/XR chest 1V portable [id number] IMPRESSION: Bibasilar opacities decreased from prior examination favored to represent atelectasis although superimposed infection is not excluded.
[2025-04-30 21:01] LABS: Hematocrit 42.6 % (36-47); Hemoglobin 14.50 g/dL (11.27-16.99); Mean Corpuscular HGB Conc 34.0 g/dL (30-55); Mean Corpuscular Hemoglobin 28.9 pg (27-33); Mean Corpuscular Volume 85.0 fl (85-98); Platelet Count 289 10^3/cmm (157-399); Red Blood Count 5.01 10^6/uL (3.85-5.65); White Blood Count 19.94 10^3/uL (3.29-11.43)
[2025-04-30 21:23] LABS: Alanine Aminotransferase 34 U/L (0-33); Albumin Level 3.9 g/dL (3.5-5.2); Alkaline Phosphatase 97 U/L (35-105); Anion Gap 16.8 (5-19); Aspartate Amino Transferase 24 U/L (0-32); Blood Urea Nitrogen 11 mg/dL (6-20); Calcium 8.7 mg/dL (8.5-10.5); Carbon Dioxide 25 mmol/L (22-29); Chloride 99 mmol/L (98-107); Creatinine Clr Calc Pharmacy 106.8983; Globulin 4.0 g/dL (1.3-4.6); Glucose 101 mg/dL (65-115); Lipase 35 U/L (13-60); NT Pro B Type Natriuretic Pept 53 pg/mL (0-125); Osmolality Calculated 286 mOsm/kg (285-295); Sodium 138 mmol/L (136-145); Total Protein 7.9 g/dL (6.6-8.7)
[2025-04-30 21:27] LABS: Potassium 2.8 mmol/L (3.5-5.1)
[2025-04-30] MEDS: potassium chloride oral liq 20 mEq/15 mL UDC 40 MEQ PO (21:43)
[2025-04-30 21:48] LABS: Slide Review Slide Review Perform
[2025-04-30 21:49] LABS: Absolute Segmented Neutrophil 13.0 10/cmm (1.6-7.1); Atypical Lymphs 7.0 % (0-5); Band Neutrophils Absolute 0.8 10^3/cmm (0.0-1.2); Giant Platelets Trace; Total Cells Counted 100 (0-100)
[2025-04-30] MEDS: lidocaine 1% 5 ML in potassium chloride premix 100 ML 52.5 ML IV (21:49)
[2025-04-30 22:07] LABS: Troponin(5th) Baseline < 6 ng/L (0-10)
--- NOTE | 2025-04-30 22:34 | ECG_ITS ---
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 Measurements Intervals [place] Rate: 72 P: 65 ME: 153 QRS: 46 QRSD: 102 T: 44 QT: 411 QTc: 453 Interpretive Statements SINUS RHYTHM POSSIBLE LEFT ATRIAL ENLARGEMENT [-0.1mV P-WAVE IN V1/V2] Compared to ECG 04/30/2025 20:53:17 T-wave abnormality no longer present Electronically Signed On 05-01-2025 09:38:16 CDT by Thom Saucedo M.D. [email or web address] [id number]
[2025-04-30 23:18] LABS: Troponin 5 2HR < 6.0 ng/L (0-10); Troponin 5 2HR Delta 0 ABS# (0-10)
[2025-05-01] VITALS: BP 119/77; PULSE 65; RESP 13; O2SAT 95
[2025-05-01 00:30] VITALS: BP 136/94; PULSE 67; RESP 15; O2SAT 94
[2025-05-01 00:47] VITALS: BP 136/94; PULSE 71; RESP 18; O2SAT 94
== END 2025-05-01 00:49 | disposition home or self-care (01) ==
PROVIDERS: Emergency Provider Emergency Medicine; PCP Clinical Nurse Specialist Adult Health
DX: R07.9 Chest pain, unspecified (principal); E87.6 Hypokalemia; I10 Essential (primary) hypertension
CPT/HCPCS: 36415; 71045; 80053; 83690; 83880; 84484; 84703; 85007; 85025; 93005; 94640; 96374; 96375; 99285; J2270; J2405; J3480; J9999

== ENCOUNTER 2025-05-02 14:53 | Emergency (ER) | payer SELFPAY ==
[2025-05-02 14:59] VITALS: BP 133/87; PULSE 92; RESP 18; TEMP 36.8; O2SAT 94
--- NOTE | 2025-05-02 15:06 | ECG_ITS ---
[facility] Test Date: 2025-05-02 Pat Name: Umberto Telles Department: Room: Gender: Female Consulting Database Administrator: : 1980 Requested By: Dl Calderon Order Number: [id number] Case MD: Thom Saucedo M.D. Measurements Intervals [place] Rate: 85 P: 70 MD: 116 QRS: 51 QRSD: 99 T: 46 QT: 373 QTc: 446 Interpretive Statements SINUS RHYTHM WITH SHORT MD INTERVAL MINIMAL ST DEPRESSION [0.025+ mV ST DEPRESSION] NONSPECIFIC INTRAVENTRICULAR CONDUCTION DELAY Compared to ECG 04/30/2025 22:38:13 Short MD interval now present ST (T wave) deviation now present Electronically Signed On 05-02-2025 19:00:01 CDT by Thom Saucedo M.D. [id number]
--- NOTE | 2025-05-02 15:21 | XRR_ITS ---
PROCEDURE INFORMATION: Exam: XR Chest Exam date and time: 05/02/2025 3:31 PM Age: 44 years old Clinical indication: Pain; Chest pressure; Additional info: Chest pressure; Bilateral flank pain TECHNIQUE: Imaging protocol: Radiologic exam of the chest. Views: 1 view. COMPARISON: CR (CHEST, ) 04/30/2025 8:41 PM FINDINGS: Lungs: Compared with prior exam 04/30/2025 no significant change is seen. Minimal left basilar atelectasis. No focal infiltrate or consolidation. Pleural spaces: No pleural effusion or pneumothorax. Heart/Mediastinum: Unremarkable. No cardiomegaly. Bones/joints: Visualized osseous structures show no acute abnormality. XR/XR chest 1V portable [id number] IMPRESSION: Minimal left basilar atelectasis. Stable chest.
--- NOTE | 2025-05-02 15:21 | CTR_ITS ---
PROCEDURE INFORMATION: Exam: CT Abdomen And Pelvis With Contrast Exam date and time: 05/02/2025 3:57 PM Age: 44 years old Clinical indication: Abdominal pain; Additional info: Eval right flank pain for kidney stone TECHNIQUE: Imaging protocol: Computed tomography of the abdomen and pelvis with contrast. Radiation optimization: All CT scans at this facility use at least one of these dose optimization techniques: automated exposure control; mA and/or kV adjustment per patient size (includes targeted exams where dose is matched to clinical indication); or iterative reconstruction. Contrast material: OMNI 350; Contrast volume: 100 ml; Contrast route: INTRAVENOUS (IV); COMPARISON: CT kidney stone [id number] 01/19/2025 1:13 PM RADIATION DOSE METRICS: Total DLP (mGy-cm): 979.3 FINDINGS: Lungs: Visualized lung bases demonstrate mild basilar adhesions and without infiltrate or effusion. Liver: Liver appears unremarkable, without significant focal abnormality. Gallbladder and biliary ducts: Previous cholecystectomy. No significant biliary ductal dilatation. Pancreas: Normal. No ductal dilation. Spleen: Unremarkable. No splenomegaly. Adrenal glands: Normal. No mass. Kidneys and ureters: Kidneys appear unremarkable. No urinary tract stone or obstructive uropathy or perinephric stranding. Stomach and bowel: Unremarkable. No obstruction. No significant mucosal thickening. Segment of incomplete distension distal sigmoid colon. No pericolonic mesenteric stranding. Moderate stool content. Appendix: The appendix is visualized. No evidence of appendicitis. Intraperitoneal space: No free fluid or ascites. No free air. Vasculature: Unremarkable. No abdominal aortic aneurysm. Lymph nodes: Unremarkable. No enlarged lymph nodes. Urinary bladder: Unremarkable as visualized. Reproductive: Previous hysterectomy. Suggestion of approximately 2 cm hypodense fluid density left ovarian cyst within the left adnexal region. Bones/joints: No acute findings. Soft tissues: Unremarkable. CT/CT abdomen pelvis w con* [id number] IMPRESSION: 1. Previous cholecystectomy. 2. Previous hysterectomy. Approximately 2 cm hypodense fluid density left ovarian cyst. 3. No urinary tract stone or obstructive uropathy or perinephric stranding.
--- NOTE | 2025-05-02 15:21 | ED_ITS ---
HPI - Chest Pain 2 General: Chief Complaint: Chest Pain Stated Complaint: chest pain Time Seen by Provider: 05/02/25 15:08 History of Present Illness: HPI: Patient returns the emergency department. Notes that 2 days ago she felt onset of the pain when she was playing with a younger child in her living room. Describes pain as aching, intermittent, numbness fairly worse with exertion or relieved with rest. No associated nausea, vomiting, or diaphoresis. Pain does not radiate down either arms, to her back, to her neck. No associated lightheadedness or presyncope symptoms. She was seen in the emergency department 04/30 and diagnosed with hypokalemia and chest wall pain according to the patient. She brings her discharge paperwork with her and this is verified in the chart. No urinalysis present. Patient has new symptom of right flank pain, described as aching, worse with movement, better with rest. No urinary symptoms. Patient has a history of a hysterectomy. REVIEW OF SYSTEMS: 10 systems reviewed and otherwise unrema rkable except for those noted in HPI. PHYSCIAL EXAM: Triage vital signs reviewed Gen: A&O NAD HEENT: NCAT, EOMI, not icteric. External ears normal. No rhinorrhea. Moist mucous membranes. Neck: Supple, full range of motion, no observable masses, No meningeal sign. Lungs: No Respiratory distress. CV: RRR, no edema. Abdomen: Soft, nondistended, No rebound tenderness. MSK: No joint swelling, no redness. Skin: No rashes, petechiae, lesions. Normal color per patient. Neuro: Normal Gait, Grossly intact. Psych: Appropriate for situation. PROCEDURES: EKG: Rate: Normal Rhythm: Sinus [place]: Normal variant Intervals: Normal Ischemia: No STEMI criteria Related Data Home Medications ?Medication ?Instructions ?Recorded ?Confirmed diclofenac sodium 1 % topical gel 4 g topical QID PRN joint pain 05/02/25 05/02/25 (Voltaren Arthritis Pain) Previous Rx's ?Medication ?Instructions ?Recorded albuterol sulfate 2.5 mg/3 mL 2.5 mg (3 mL) continuous 04/20/25 (0.083 %) solution for nebulization nebulization Q4H P RN shortness of breath or wheezing #75 mL budesonide-formoterol HFA 160 2 puff inhalation BID #1 0.2 grams 04/20/25 mcg-4.5 mcg/actuation aerosol inhaler (Symbicort) hydrochlorothiazide 25 mg tablet 25 mg PO DAILY #30 ta bs 04/20/25 left wrist splint #1 ea 04/20/25 potassium chloride 10 mEq 10 meq PO DAILY #30 tabs tablet,extended release (Klor-Con) Allergies Allergy/AdvReac Type Severity Reaction Status Date / Time diphenhydramine (From Allergy ALGY-Difficulty Verified 05/02/25 15:03 Benadryl) Breathing codeine AdvReac ADR-Nausea Verified 05/02/25 15:03 hydrocodone (From Vicodin) AdvReac ADR-Nausea Verified 05/02/25 15:03 PFS ED 2 PFSH: Medical History (Updated 05/02/25 @ 15:43 by Kalen Ellsworth MD) No pertinent past medical history Denies: thyroid problems, diabetes, seizure disorders, DVT/PE. Essential hypertension Diagnosed in February 2020 being managed by PMD. 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 a potato spotter Surgical History Hx of hysterectomy Status post tubal ligation 2007--laparoscopic procedure Status post cholecystectomy 1999--laparoscopic procedure Family History Grandmother Breast cancer maternal, age at diagnosis unknown Denies family history of Colon cancer Ovarian cancer Diabetes Heart disease Hyperlipidemia Anesthesia complication Bleeding disorder Hypertension Uterine cancer Thyroid disease Stroke Social History Smoking and tobacco/nicotine status: never used tobacco/nicotine Alcohol intake: current Alcohol intake frequency: holidays/special occasions only Substance/Drug Use: never Marital status: Number of children: 4 Number of grandchildren: 2 Current occupational status: employed [employer] 2 Vital Signs: Vital signs: Vital Signs Temperature 98.2 F 05/02/25 14:59 Pulse Rate 73 05/02/25 16:43 Respiratory Rate 18 05/02/25 14:59 Blood Pressure 127/76 05/02/25 16:43 Pulse Oximetry 94 05/02/25 16:43 Oxygen Delivery Me thod Room Air 05/02/25 16:43 MDM - Chest Pain Medical Decision Making MEDICAL DECISION MAKING: Differential diagnoses considered but not limited to: Intra-abdominal surgical infectious emergency, ureterolithiasis, perinephric abscess, stress demargination with previous leukocytosis of the chart, costochondritis, atypical PE. Vitals nonactionable. Given history, examination, and pretest risk factors, obtain urinalysis and repeat labs in the patient. Will verify patient's hypokalemia and any improvement to her hypokalemia or worsening necessitating further repletion in the department. Additionally patient had leukocytosis and now has right-sided flank pain without urinary symptoms. Evaluate possible pyelonephritis as source of patient's atypical flank and chest pain. No systemic infectious symptoms and stable vital signs. Imaging nonemergent nonactionable. Electrolytes nonactionable. Advise follow- up with PCM for consideration of reinitiation of new blood pressure medication. Patient is continuing to refrain from using her hydrochlorothiazide. DISPO: RACH Ellsworth MD Staff physician, [facility] Emergency Department [phone] Lab Data 05/02/25 15:30 05/02/25 15:30 Radiology Impressions Abdomen/Pelvis CT 05/02/25 15:21 IMPRESSION: 1. Previous cholecystectomy. 2. Previous hysterectomy. Approximately 2 cm hypodense fluid density left ovarian cyst. 3. No urinary tract stone or obstructive uropathy or perinephric stranding. Chest X-Ray 05/02/25 15:21 IMPRESSION: Minimal left basilar atelectasis. Stable chest. Laboratory Results WBC 21.55 10^3/uL (3.29-11.43) H 05/02/25 15:30 RBC 5.29 10^6/uL (3.85-5.65) 05/02/25 15:30 Hgb 15.30 g/dL (11.27-16.99) 05/02/25 15:30 Hct 45.6 % (36-47) 05/02/25 15:30 MCV 86.2 fl (85-98) 05/02/25 15:30 MCH 28.9 pg (27-33) 05/02/25 15:30 MCHC 33.6 g/dL (30-55) 05/02/25 15:30 RDW 13.8 % (12.1-15.1) 05/02/25 15:30 Plt Count 274 10^3/cmm (157-399) 05/02/25 15:30 MPV 11.0 fL (7.4-10.4) H 05/02/25 15:30 Neut % (Auto) 68.3 % 05/02/25 15:30 Lymph % (Auto) 22.2 % 05/02/25 15:30 [place] % (Auto) 7.5 % 05/02/25 15:30 Eos % (Auto) 1.0 % 05/02/25 15:30 Baso % (Auto) 0.4 % 05/02/25 15:30 Neut # (Auto) 14.74 10^3/uL (1.8-7.7) H 05/02/25 15:30 Lymph # (Auto) 4.8 10^3/uL (0.8-4.8) 05/02/25 15:30 [place] # (Auto) 1.6 10^3/uL (0.2-0.9) H 05/02/25 15:30 Eos # (Auto) 0.2 10^3/uL (0.0-0.8) 05/02/25 15:30 Baso # (Auto) 0.1 10^3/uL (0.0-0.1) 05/02/25 15:30 Nucleated RBC % (auto) 0 % 05/02/25 15:30 Nucleated RBCs # 0.0 /100WBC 05/02/25 15:30 Sodium 137 mmol/L (136-145) 05/02/25 15:30 Potassium 3.4 mmol/L (3.5-5.1) L 05/02/25 15:30 Chloride 98 mmol/L (98-107) 05/02/25 15:30 Carbon Dioxide 24 mmol/L (22-29) 05/02/25 15:30 Anion Gap 18.4 (5-19) 05/02/25 15:30 BUN 10 mg/dL (6-20) 05/02/25 15:30 Creatinine 0.6 mg/dL (0.5-0.9) 05/02/25 15:30 GFR Calculation 108.6 mL/min (90-130) 05/02/25 15:30 Glucose 74 mg/dL (65-115) 05/02/25 15:30 Calculated Osmolality 282 mOsm/kg (285-295) L 05/02/25 15:30 Calcium 9.3 mg/dL (8.5-10.5) 05/02/25 15:30 Magnesium 2.3 mg/dL (1.7-2.3) 05/02/25 15:30 Total Bilirubin 0.3 mg/dL (0.15-1.2) 05/02/25 15:30 AST 35 U/L (0-32) H 05/02/25 15:30 ALT 46 U/L (0-33) H 05/02/25 15:30 Alkaline Phosphatase 105 U/L (35-105) 05/02/25 15:30 Troponin T Baseline < 6 ng/L (0-10) 05/02/25 15:30 Total Protein 8.1 g/dL (6.6-8.7) 05/02/25 15:30 Albumin 4.3 g/dL (3.5-5.2) 05/02/25 15:30 Globulin 3.8 g/dL (1.3-4.6) 05/02/25 15:30 Urine Color Yellow (Yellow) 05/02/25 16:33 Urine Appearance Clear (CLEAR) 05/02/25 16:33 Urine pH 6.5 (5-7) 05/02/25 16:33 Ur Specific [place] 1.038 (1.005-1.030) H 05/02/25 16:33 Urine Protein Negative (Negative) 05/02/25 16:33 Urine Glucose (UA) Negative (Normal) 05/02/25 16:33 Urine Ketones Negative (Negative) 05/02/25 16:33 Urine Blood Negative (Negative) 05/02/25 16:33 Urine Nitrate Negative (Negative) 05/02/25 16:33 Urine Bilirubin Negative (Negative) 05/02/25 16:33 Urine Urobilinogen 0.2 mg/dL (Negative) 05/02/25 16:33 Ur Leukocyte Esterase Negative (Negative) 05/02/25 16:33 Urine RBC 0-2 /hpf (0-2) 05/02/25 16:33 Urine WBC 0-5 /hpf (0-5) 05/02/25 16:33 Ur Squamous Epith Cells 0-5 /hpf (0-5) 05/02/25 16:33 Amorphous Sediment Not Reportable 05/02/25 16:33 Urine Bacteria None seen /hpf (NONE) 05/02/25 16:33 Hyaline Casts 0.40 /lpf 05/02/25 16:33 All radiology interpretation(s) finalized by discharge Discharge Plan Discharge Patient Disposition: Home Clinical Impression: Atypical chest pain, Acute flank pain Leukocytosis Qualifiers: Leukocytosis type: unspecified Qualified Code(s): D72.829 - Elevated white blood cell count, unspecified Condition: Stable Prescriptions: No Action (DME) left wrist splint See Rx Instructions .Route .MEDSUPPLY Qty: 1 0RF Rx Instructions: As directed hydrochlorothiazide 25 mg tablet 25 mg PO DAILY Qty: 30 2RF albuterol sulfate 2.5 mg /3 mL (0.083 %) solution for nebulization 2.5 mg continuous nebulization Q4H PRN (Reason: shortness of breath or wheezing) Qty: 75 1RF Rx Instructions: 340B plan budesonide-formoterol [Symbicort] 160-4.5 mcg/actuation HFA aerosol inhaler 2 puff inhalation BID Qty: 10.2 11RF Rx Instructions: 340B plan potassium chloride [Klor-Con 10] 10 mEq tablet extended release 10 meq PO DAILY Qty: 30 0RF diclofenac sodium [Voltaren Arthritis Pain] 1 % gel 4 g topical QID PRN (Reason: joint pain) Rx Instructions: apply to single knee, ankle, foot; for foot includes sole/toes/top of foot Discharge Orders: Discharge ED (Routine); Ordered 05/02/25 Ordered By: Kalen Ellsworth Referrals: Chidi Rivera GOVERNMENT AFFAIRS MANAGER [Primary Care Provider, Family Practice] Discharge Diet: Advance as tolerated Discharge Activity: Resume usual activity Patient Instructions: Chest Pain (ED), Opioid Safety, Pain Management, Patient Portal & [place] Instructions Activity Restrictions/Additional Instructions: It has been a pleasure caring for you in the emergency department. Please ensure that you follow-up with your primary care physician for review of all data obtained during this encounter including any incidental findings and laboratory values. Keep in mind that if your condition worsens in any way, I strongly recommend that you return to the emergency department for repeat evaluation immediately. Print Language: Citizen [place] Coding Level of Care Code ED Administrative Representative for Machelle Larios
--- NOTE | 2025-05-02 15:22 | ECG_ITS ---
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 Measurements Intervals [place] Rate: 85 P: 70 IN: 116 QRS: 51 QRSD: 99 T: 46 QT: 373 QTc: 446 Interpretive Statements SINUS RHYTHM WITH SHORT IN INTERVAL MINIMAL ST DEPRESSION [0.025+ mV ST DEPRESSION] Compared to ECG 04/30/2025 22:38:13 Short IN interval now present ST (T wave) deviation now present Electronically Signed On 05-02-2025 18:44:27 CDT by Thom Saucedo M.D. [email or web address]
[2025-05-02 15:36] LABS: Hematocrit 45.6 % (36-47); Hemoglobin 15.30 g/dL (11.27-16.99); Mean Corpuscular HGB Conc 33.6 g/dL (30-55); Mean Corpuscular Hemoglobin 28.9 pg (27-33); Mean Corpuscular Volume 86.2 fl (85-98); Nucleated Red Blood Cells % 0 %; Platelet Count 274 10^3/cmm (157-399); Red Blood Count 5.29 10^6/uL (3.85-5.65); White Blood Count 21.55 10^3/uL (3.29-11.43)
[2025-05-02] MEDS: iohexol 350 mg/mL 500 mL Btl (per mL) IV (15:59)
[2025-05-02 16:01] LABS: Troponin(5th) Baseline < 6 ng/L (0-10)
[2025-05-02 16:04] LABS: Alanine Aminotransferase 46 U/L (0-33); Albumin Level 4.3 g/dL (3.5-5.2); Alkaline Phosphatase 105 U/L (35-105); Anion Gap 18.4 (5-19); Aspartate Amino Transferase 35 U/L (0-32); Blood Urea Nitrogen 10 mg/dL (6-20); Calcium 9.3 mg/dL (8.5-10.5); Carbon Dioxide 24 mmol/L (22-29); Chloride 98 mmol/L (98-107); Creatinine Clr Calc Pharmacy 145.9582; Globulin 3.8 g/dL (1.3-4.6); Glucose 74 mg/dL (65-115); Magnesium 2.3 mg/dL (1.7-2.3); Osmolality Calculated 282 mOsm/kg (285-295); Potassium 3.4 mmol/L (3.5-5.1); Sodium 137 mmol/L (136-145); Total Protein 8.1 g/dL (6.6-8.7)
[2025-05-02 16:11] LABS: Slide Review Slide Review Perform
[2025-05-02 16:42] LABS: Glucose Urine UA Negative (Normal); Nitrate Urine Negative (Negative)
[2025-05-02 16:43] VITALS: BP 127/76; PULSE 73; O2SAT 94
[2025-05-02 16:48] LABS: Add Urine Microscopic? YES
[2025-05-02 16:49] LABS: Specific Gravity, Urine 1.038 (1.005-1.030)
== END 2025-05-02 17:30 | disposition home or self-care (01) ==
PROVIDERS: Emergency Provider General Practice; PCP Clinical Nurse Specialist Adult Health
DX: R07.89 Other chest pain (principal); R10.9 Unspecified abdominal pain; D72.829 Elevated white blood cell count, unspecified; I10 Essential (primary) hypertension
CPT/HCPCS: 36415; 71045; 74177; 80053; 81001; 83735; 84484; 85025; 93005; 96374; 99285; J1885

== ENCOUNTER → 2025-05-03 14:11 | Outpatient (BNVA) | payer SELFPAY | PROVIDERS: PCP Clinical Nurse Specialist Adult Health; Visit Provider Clinical Nurse Specialist Adult Health | DX: E87.6 Hypokalemia (principal); D72.829 Elevated white blood cell count, unspecified | CPT/HCPCS: 80053; 85007; 85027; 85651; 86038; 86140; 86431 ==

== ENCOUNTER → 2025-05-11 09:26 | Outpatient (BNVA) | payer SELFPAY | PROVIDERS: PCP Clinical Nurse Specialist Adult Health; Visit Provider Clinical Nurse Specialist Adult Health | DX: D72.10 Eosinophilia, unspecified (principal) | CPT/HCPCS: 80053; 85007; 85027 ==

== ENCOUNTER 2025-05-17 08:31 | Outpatient (CLI) | payer SELFPAY ==
--- NOTE | 2025-05-17 08:30 | CT_ITS ---
WS: [id number] CT chest w con* [id number] HISTORY: D72.829 - Elevated white blood cell count, unspecified TECHNIQUE: Axial imaging performed through the thorax. Coronal and sagittal reformats are submitted. All CT scans at [facility] use at least one of these dose optimization techniques: automated exposure control; mA and/or kV adjustment per patient size (includes targeted exams where dose is matched to clinical indication); or iterative reconstruction. CONTRAST: Omnipaque 350; 100 mL IV. DLP: 644.15 mGy.cm COMPARISON: 11/02/2021 Lungs and central airway: Lungs are well aerated. Subsegmental atelectasis is present in the lingula and RIGHT middle lobe. There is no consolidation or pneumonia. No mass. No endobronchial lesions. Pleura: Normal. No pleural effusion. Heart and pericardium: Normal size heart with no pericardial effusion. Mediastinum and aydee: No mediastinum or hilar adenopathy. Vessels: Normal size aortic and pulmonary artery. No coronary artery calcifications. Chest wall and lower neck: No soft tissue masses. Upper abdomen: Mild hepatic steatosis. Prior cholecystectomy. No adrenal mass. Osseous structures: No destructive process. CT/CT chest w con* [id number] IMPRESSION: 1. No pneumonia. 2. Subsegmental atelectasis RIGHT middle lobe and in the lingula. 3. No mediastinal or hilar adenopathy. 4. Prior cholecystectomy.
[2025-05-17] MEDS: iohexol 350 mg/mL 500 mL Btl (per mL) IV (08:58)
== END 2025-05-17 08:32 | disposition home or self-care (01) ==
PROVIDERS: PCP Clinical Nurse Specialist Adult Health; Visit Provider Clinical Nurse Specialist Adult Health
DX: D72.829 Elevated white blood cell count, unspecified (principal); M94.0 Chondrocostal junction syndrome [Tietze]; F17.210 Nicotine dependence, cigarettes, uncomplicated; J98.11 Atelectasis; Z90.49 Acquired absence of other specified parts of digestive tract
CPT/HCPCS: 71260

== ENCOUNTER 2025-07-14 11:30 | Oncology outpatient (recurring) (ONCR) | payer SELFPAY ==
--- NOTE | 2025-07-14 11:45 | MR_ITS ---
WS: [id number] MRI LEFT WRIST WITHOUT CONTRAST. COMPARISON: 04/17/2025 Multiplanar, multisequence imaging is performed without contrast. History: Patient fell. Wrist pain. Ulna is shorter by 4.4 mm with respect to the radius consistent with negative ulnar variance. No marrow edema noted in the lunate which can be seen with negative ulnar variance. Shape of the lunate is normal. No evidence for osteonecrosis. No impaction edema on the carpal bones. Carpal rows are normally aligned. No fracture. Scaphoid is intact. Increased signal near the cartilaginous TFC radial attachment is considered normal. There is some intermediate signal within the ulnar attachment of the TFCC but no tear. This is more likely mild contusion injury. There is also no fluid in the distal radial ulnar joint. No fluid in the tendon sheaths arraignments decreased signal in any of the compartments of the wrist. MR/MR wrist LT wo con* [id number] IMPRESSION: 1. Negative ulnar variance. 2. No marrow edema or osteonecrosis involving the carpal bones. 3. TFCC has intermediate signal and is elongated due to the negative ulnar lucien iance. There is no tear at this time. Patient is at risk for TFCC tear. No flui d in the distal radial ulnar joint. 4. Carpal rows are normal. 5. Scapholunate ligament is normal. 6. No evidence for tendinopathy.
== END 2025-08-08 23:59 | disposition home or self-care (01) ==
LOC: RAD 11:37 → ONCMED 07-15 11:30
PROVIDERS: PCP Clinical Nurse Specialist Adult Health; Visit Provider Internal Medicine Medical Oncology
DX: M25.532 Pain in left wrist (principal); R93.6 Abnormal findings on diagnostic imaging of limbs; W19.XXXA Unspecified fall, initial encounter
CPT/HCPCS: 73221

== ENCOUNTER 2025-08-08 00:54 | Emergency (ER) | payer SELFPAY ==
[2025-08-08 00:58] VITALS: BMI 39.8
[2025-08-08 01:04] VITALS: BP 153/88; PULSE 84; RESP 18; O2SAT 96
--- NOTE | 2025-08-08 01:32 | CTR_ITS ---
PROCEDURE INFORMATION: Exam: CT Abdomen And Pelvis With Contrast Exam date and time: 08/08/2025 1:49 AM Age: 44 years old Clinical indication: Abdominal pain; Localized; Right; Prior surgery; Surgery date: 6+ months; Surgery type: Gb. Hysterectomy; C/O RT sided abd pain; Additional info: R sided abd pain TECHNIQUE: Imaging protocol: Computed tomography of the abdomen and pelvis with contrast. Radiation optimization: All CT scans at this facility use at least one of these dose optimization techniques: automated exposure control; mA and/or kV adjustment per patient size (includes targeted exams where dose is matched to clinical indication); or iterative reconstruction. Contrast material: OMNI 350; Contrast volume: 100 ml; Contrast route: INTRAVENOUS (IV); COMPARISON: CT abdomen pelvis w con* [id number] 05/02/2025 3:57 PM RADIATION DOSE METRICS: Total DLP (mGy-cm): 961 FINDINGS: Liver: Normal. No mass. Gallbladder and biliary ducts: Cholecystectomy. Unremarkable biliary system. Pancreas: Normal. No ductal dilation. Spleen: Normal. No splenomegaly. Adrenal glands: Normal. No mass. Kidneys and ureters: Normal. No hydronephrosis. Stomach and bowel: Unremarkable. No obstruction. No mucosal thickening. Appendix: Normal appendix. Intraperitoneal space: Unremarkable. No free air. No significant fluid collection. Vasculature: Unremarkable. No abdominal aortic aneurysm. Lymph nodes: Unremarkable. No enlarged lymph nodes. Urinary bladder: Unremarkable as visualized. Reproductive: Absent uterus. Small right ovary cyst 3 cm diameter. Small left ovary cyst 3 cm diameter. Bones/joints: Unremarkable. No acute fracture. Soft tissues: Unremarkable. CT/CT abdomen pelvis w con* [id number] IMPRESSION: 1. Negative for acute abdominopelvic pathology. 2. Small, simple bilateral ovarian cysts.
[2025-08-08 01:35] VITALS: BP 141/86; PULSE 78; RESP 18; O2SAT 97
[2025-08-08 01:42] VITALS: RESP 18; O2SAT 97
[2025-08-08] MEDS: morphine 4 mg/mL SDV 1 mL IVP (01:42)
[2025-08-08] MEDS: ondansetron 2 mg/ML SDV 2 mL 4 MG IVP (01:42)
[2025-08-08 01:46] LABS: Hematocrit 41.2 % (36-47); Hemoglobin 13.80 g/dL (11.27-16.99); Mean Corpuscular HGB Conc 33.5 g/dL (30-55); Mean Corpuscular Hemoglobin 29.2 pg (27-33); Mean Corpuscular Volume 87.3 fl (85-98); Nucleated Red Blood Cells % 0 %; Platelet Count 233 10^3/cmm (157-399); Red Blood Count 4.72 10^6/uL (3.85-5.65); White Blood Count 16.93 10^3/uL (3.29-11.43)
[2025-08-08 01:48] LABS: Glucose Urine UA Negative (Normal); Nitrate Urine Negative (Negative); Specific Gravity, Urine 1.012 (1.005-1.030)
[2025-08-08] MEDS: iohexol 350 mg/mL 500 mL Btl (per mL) IV (01:50)
[2025-08-08 01:53] LABS: Add Urine Microscopic? YES
[2025-08-08 01:59] LABS: Slide Review Slide Review Perform
[2025-08-08 02:06] VITALS: BP 146/111; PULSE 74; RESP 17; O2SAT 96
[2025-08-08 02:07] LABS: Alanine Aminotransferase 35 U/L (0-33); Albumin Level 3.8 g/dL (3.5-5.2); Alkaline Phosphatase 94 U/L (35-105); Anion Gap 17.0 (5-19); Aspartate Amino Transferase 23 U/L (0-32); Blood Urea Nitrogen 9 mg/dL (6-20); Calcium 8.8 mg/dL (8.5-10.5); Carbon Dioxide 21 mmol/L (22-29); Chloride 104 mmol/L (98-107); Globulin 3.6 g/dL (1.3-4.6); Glucose 118 mg/dL (65-115); Lactic Sepsis W/Reflex 1.5 mmol/L (0.5-2.2); Lipase 29 U/L (13-60); Osmolality Calculated 286 mOsm/kg (285-295); Potassium 4.0 mmol/L (3.5-5.1); Sodium 138 mmol/L (136-145); Total Protein 7.4 g/dL (6.6-8.7)
[2025-08-08 02:34] VITALS: BP 127/93; PULSE 70; RESP 18; O2SAT 98
--- NOTE | 2025-08-08 02:50 | ED_ITS ---
HPI - Abdominal Pain 2 General: Chief Complaint: Fever Stated Complaint: abd pain into low back. fever Time Seen by Provider: 08/08/25 01:23 History of Present Illness: Patient is a 44-year-old female who presents with acute onset of right-sided abdominal and flank pain that began a few hours prior to presentation. She reports waking up fine this morning and developing pain while sitting with family. The pain is localized to the right side of her abdomen with radiation to her back. She describes tenderness to palpation in the right lower quadrant with pain radiating to her right flank. Patient reports dysuria but denies hematuria. She also reports a low-grade fever of 100?F. She denies nausea or vomiting. Patient has a history of kidney stones and states she was previously given medication to pass a stone, but does not recall experiencing pain of this severity with prior episodes. Related Data Home Medications ?Medication ?Instructions ?Recorded ?Confirmed diclofenac sodium 1 % topical gel 4 g topical QID PRN joint pain 05/02/25 07/01/25 (Voltaren Arthritis Pain) nebulizer 06/03/25 07/01/25 Previous Rx's ?Medication ?Instructions ?Recorded budesonide-formoterol HFA 160 2 puff inhalation BID #1 0.2 grams 04/20/25 mcg-4.5 mcg/actuation aerosol inhaler (Symbicort) left wrist splint #1 ea 04/20/25 montelukast 10 mg tablet 10 mg PO DAILY #30 tabs 06/10 12/01 (Singulair) losartan 25 mg tablet 25 mg PO DAILY #30 tabs 07/10 01/01 Allergies Allergy/AdvReac Type Severity Reaction Status Date / Time diphenhydramine (From Allergy ALGY-Difficulty Verified 07/01/25 15:35 Benadryl) Breathing codeine AdvReac ADR-Nausea Verified 07/01/25 15:35 hydrocodone (From Vicodin) AdvReac ADR-Nausea Verified 07/01/25 15:35 PFSH ED 2 PFSH: Medical History (Updated 08/08/25 @ 02:51 by Brian Whitt DO) Neutrophilia Nicotine dependence with current use Adhesive capsulitis of left shoulder Severe persistent asthma without complication elevated eosinophils Leukocytosis Synovitis of wrist Essential hypertension Diagnosed in February 2020 Surgical History Hx of hysterectomy Status post tubal ligation 2007--laparoscopic procedure Status post cholecystectomy 1999--laparoscopic procedure Family History Grandmother Breast cancer maternal, age at diagnosis unknown Denies family history of Colon cancer Ovarian cancer Diabetes Heart disease Hyperlipidemia Anesthesia complication Bleeding disorder Hypertension Uterine cancer Thyroid disease Stroke Social History Smoking and tobacco/nicotine status: current every day tobacco/nicotine user (1/2 ppd x 24 years) cigarettes Packs smoked per day: 1 Years cigarettes smoked: 27 [ Other cigarette details: started at age 16] Alcohol intake: current Alcohol intake frequency: holidays/special occasions only Substance/Drug Use: never Marital status: Number of children: 4 Number of grandchildren: 2 Current occupational status: employed Physical Exam 2 Const: COMMON NORMALS: no acute distress GENERAL APPEARANCE: cooperative; not ill appearing and not frail appearing HENMT: COMMON NORMALS: normocephalic, atraumatic and Normal external nose present HEAD & SCALP: normocephalic and atraumatic FACE & SINUS: normal facial exam and face symmetric NOSE: Normal external nose present Eye: COMMON NORMALS: Equal, round and reactive pupils present and EOMs intact bilaterally PUPIL: Yes Equal, round and reactive pupils present Neck/C-Spine: GENERAL: Yes trachea midline Chest: CHEST: Yes Symmetrical chest wall rise Resp: COMMON NORMALS: normal respiratory effort, No retractions, No use of accessory muscles and clear to auscultation bilaterally AUSCULTATION: clear to auscultation bilaterally Cardio: COMMON NORMALS: regular rate and regular rhythm RATE: regular rate RHYTHM: regular rhythm GI: COMMON NORMALS: Normal to inspection, nondistended, normoactive bowel sounds present PALPATION: Yes Tenderness to palpation present (GI) Details: RLQ and No Guarding due to palpation present (GI) : BLADDER/KIDNEY EXAM: Yes CVA tenderness on the right Back/Pelvis: GENERAL BACK: Yes CVA tenderness Extremity: COMMON NORMALS: no pedal edema Neuro: TIA COMA SCALE: document GCS findings Tia coma scale eye opening: Spontaneous Tia coma scale verbal response: Orientated Tia coma scale motor response: Obey commands [place] coma scale total score: 15 S ENSORY EXAM: Yes extremities (intact) Psych: COMMON NORMALS: speech normal SPEECH: Yes normal speech Skin: COMMON NORMALS: no rashes or lesions noted GENERAL SKIN EXAM: no rashes or lesions noted Course 2 Vital Signs: Vital signs: Vital Signs Pulse Rate 75 08/08/25 03:07 Respiratory Rate 17 08/08/25 03:07 Blood Pressure 130/86 08/08/25 03:07 Pulse Oximetry 97 08/08/25 03:07 MDM - Abdominal Pain Medical Decision Making Vitals are stable here. White blood count 17, but without significant left shift. Lactic acid is normal at 1.5. CRP is 10. BMP is normal. ALT and AST are not remarkable. Bilirubin is 0.2. Urinalysis is negative. CT shows no acute disease. She is stable for discharge. Pain is improved after fluid, Toradol and morphine Lab Data 08/08/25 01:41 08/08/25 01:41 Labs/Radiology: Radiology Impressions Abdomen/Pelvis CT 08/08/25 01:32 IMPRESSION: 1. Negative for acute abdominopelvic pathology. 2. Small, simple bilateral ovarian cysts. Laboratory Results WBC 16.93 10^3/uL (3.29-11.43) H 08/08/25 01:41 RBC 4.72 10^6/uL (3.85-5.65) 08/08/25 01:41 Hgb 13.80 g/dL (11.27-16.99) 08/08/25 01:41 Hct 41.2 % (36-47) 08/08/25 01:41 MCV 87.3 fl (85-98) 08/08/25 01:41 MCH 29.2 pg (27-33) 08/08/25 01:41 MCHC 33.5 g/dL (30-55) 08/08/25 01:41 RDW 13.5 % (12.1-15.1) 08/08/25 01:41 Plt Count 233 10^3/cmm (157-399) 08/08/25 01:41 MPV 11.1 fL (7.4-10.4) H 08/08/25 01:41 Neut % (Auto) 67.3 % 08/08/25 01:41 Lymph % (Auto) 25.3 % 08/08/25 01:41 Ray % (Auto) 4.4 % 08/08/25 01:41 Eos % (Auto) 2.2 % 08/08/25 01:41 Baso % (Auto) 0.4 % 08/08/25 01:41 Neut # (Auto) 11.39 10^3/uL (1.8-7.7) H 08/08/25 01:41 Lymph # (Auto) 4.3 10^3/uL (0.8-4.8) 08/08/25 01:41 Ray # (Auto) 0.8 10^3/uL (0.2-0.9) 08/08/25 01:41 Eos # (Auto) 0.4 10^3/uL (0.0-0.8) 08/08/25 01:41 Baso # (Auto) 0.1 10^3/uL (0.0-0.1) 08/08/25 01:41 Nucleated RBC % (auto) 0 % 08/08/25 01:41 Nucleated RBCs # 0.0 /100WBC 08/08/25 01:41 Sodium 138 mmol/L (136-145) 08/08/25 01:41 Potassium 4.0 mmol/L (3.5-5.1) 08/08/25 01:41 Chloride 104 mmol/L (98-107) 08/08/25 01:41 Carbon Dioxide 21 mmol/L (22-29) L 08/08/25 01:41 Anion Gap 17.0 (5-19) 08/08/25 01:41 BUN 9 mg/dL (6-20) 08/08/25 01:41 Creatinine 0.6 mg/dL (0.5-0.9) 08/08/25 01:41 GFR Calculation 108.6 mL/min (90-130) 08/08/25 01:41 Glucose 118 mg/dL (65-115) H 08/08/25 01:41 Calculated Osmolality 286 mOsm/kg (285-295) 08/08/25 01:41 Lactic Acid 1.5 mmol/L (0.5-2.2) 08/08/25 01:41 Calcium 8.8 mg/dL (8.5-10.5) 08/08/25 01:41 Total Bilirubin 0.2 mg/dL (0.15-1.2) 08/08/25 01:41 AST 23 U/L (0-32) 08/08/25 01:41 ALT 35 U/L (0-33) H 08/08/25 01:41 Alkaline Phosphatase 94 U/L (35-105) 08/08/25 01:41 C-Reactive Protein 10.3 mg/L (0.0-4.9) H 08/08/25 01:41 Total Protein 7.4 g/dL (6.6-8.7) 08/08/25 01:41 Albumin 3.8 g/dL (3.5-5.2) 08/08/25 01:41 Globulin 3.6 g/dL (1.3-4.6) 08/08/25 01:41 Lipase 29 U/L (13-60) 08/08/25 01:41 Urine Color Yellow (Yellow) 08/08/25 01:07 Urine Appearance Clear (CLEAR) 08/08/25 01:07 Urine pH 7.0 (5-7) 08/08/25 01:07 Ur Specific [place] 1.012 (1.005-1.030) 08/08/25 01:07 Urine Protein Negative (Negative) 08/08/25 01:07 Urine Glucose (UA) Negative (Normal) 08/08/25 01:07 Urine Ketones Negative (Negative) 08/08/25 01:07 Urine Blood Negative (Negative) 08/08/25 01:07 Urine Nitrate Negative (Negative) 08/08/25 01:07 Urine Bilirubin Negative (Negative) 08/08/25 01:07 Urine Urobilinogen 0.2 mg/dL (Negative) 08/08/25 01:07 Ur Leukocyte Esterase Negative (Negative) 08/08/25 01:07 Urine RBC 0-2 /hpf (0-2) 08/08/25 01:07 Urine WBC 0-5 /hpf (0-5) 08/08/25 01:07 Ur Squamous Epith Cells 0-5 /hpf (0-5) 08/08/25 01:07 Amorphous Sediment Not Reportable 08/08/25 01:07 Urine Bacteria Trace /hpf (NONE) 08/08/25 01:07 Hyaline Casts 0-4 /lpf H 08/08/25 01:07 All radiology interpretation(s) finalized by discharge Discharge Plan Discharge Patient Disposition: Home Clinical Impression: Abdominal pain Condition: Stable Prescriptions: No Action (DME) left wrist splint See Rx Instructions .Route .MEDSUPPLY Qty: 1 0RF Rx Instructions: As directed budesonide-formoterol [Symbicort] 160-4.5 mcg/actuation HFA aerosol inhaler 2 puff inhalation BID Qty: 10.2 11RF Rx Instructions: 340B plan montelukast [Singulair] 10 mg tablet 10 mg PO DAILY Qty: 30 6RF (DME) nebulizer 0 .Route .MEDSUPPLY losartan 25 mg tablet 25 mg PO DAILY Qty: 30 1RF diclofenac sodium [Voltaren Arthritis Pain] 1 % gel 4 g topical QID PRN (Reason: joint pain) Rx Instructions: apply to single knee, ankle, foot; for foot includes sole/toes/top of foot Discharge Orders: Discharge ED (Routine); Ordered 08/08/25 Ordered By: Brian Whitt Referrals: [facility] [Primary Care Provider, Family Practice] - 4-7 days Patient Instructions: Abdominal Pain (ED), Opioid Safety, Pain Management, Patient Portal & Zoila Instructions Stand Alone Forms: Work/School Release Print Language: Kazakh Coding Level of Care Code ED Pipe Line Walker for Machelle Larios
--- NOTE | 2025-08-08 02:55 | PC.NURSE ---
Dr. rooney gave verbal order 08/08/25 at 0255 to give patient morphine 2mg ivp one time prior to dc due to pain level. order placed and verified with dr. rooney
[2025-08-08] MEDS: morphine 4 mg/mL SDV 1 mL 2 MG IVP (03:01)
[2025-08-08 03:07] VITALS: BP 130/86; PULSE 75; RESP 17; O2SAT 97
== END 2025-08-08 03:10 | disposition home or self-care (01) ==
PROVIDERS: Emergency Provider Emergency Medicine; PCP Clinical Nurse Specialist Adult Health
DX: R10.9 Unspecified abdominal pain (principal); F17.210 Nicotine dependence, cigarettes, uncomplicated; I10 Essential (primary) hypertension
CPT/HCPCS: 36415; 74177; 80053; 81001; 83605; 83690; 85025; 86140; 96374; 96375; 96376; 99285; J1885; J2270; J2405; J7030

== ENCOUNTER 2025-08-08 20:45 | Emergency (ER) | payer SELFPAY ==
[2025-08-08] VITALS (7 sets, daily range): BP systolic 126–137; BP diastolic 73–89; PULSE 66–78; RESP 16–19; TEMP 36.4; O2SAT 94–99
--- NOTE | 2025-08-08 22:08 | ED_ITS ---
HPI - Nausea/Vomiting/Diarrhea 2 General: Chief complaint: Nausea/Vomiting/Diarrhea Stated complaint: N/V Time Seen by Provider: 08/08/25 21:48 History of Present Illness: Patient is a 44-year-old female that presents to the emergency room with right upper quadrant abdominal pain. This started 2 days ago. She was seen in the ER yesterday for this. She did not have nausea, vomiting yesterday. No change in stools. She returns to the ED with the nausea, vomiting that started this morning. She has tried to rusty this today without availability. No fevers. No sick contact. Last workup yesterday was reviewed. Patient CT of the abdomen and pelvis that did not show any acute findings. Laboratory data showed leukocytosis, leukemoid reaction, otherwise benign urinalysis and CMP Associated nausea: Yes Associated symtoms: Reports nausea; Denies anxiety or headache(s) Related Data Home Medications ?Medication ?Instructions ?Recorded ?Confirmed diclofenac sodium 1 % topical gel 4 g topical QID PRN joint pain 05/02/25 07/01/25 (Voltaren Arthritis Pain) nebulizer 06/03/25 07/01/25 Previous Rx's ?Medication ?Instructions ?Recorded budesonide-formoterol HFA 160 2 puff inhalation BID #1 0.2 grams 04/20/25 mcg-4.5 mcg/actuation aerosol inhaler (Symbicort) left wrist splint #1 ea 04/20/25 montelukast 10 mg tablet 10 mg PO DAILY #30 tabs 06/10 12/01 (Singulair) losartan 25 mg tablet 25 mg PO DAILY #30 tabs 07/10 01/01 ondansetron 4 mg disintegrating 4 mg PO Q8H PRN nausea and 08/08/25 tablet vomiting 4 days #14 tabs Allergies Allergy/AdvReac Type Severity Reaction Status Date / Time diphenhydramine (From Allergy ALGY-Difficulty Verified 07/01/25 15:35 Benadryl) Breathing codeine AdvReac ADR-Nausea Verified 07/01/25 15:35 hydrocodone (From Vicodin) AdvReac ADR-Nausea Verified 07/01/25 15:35 Review of Systems 2 General: Reports: 10 or more systems reviewed and unremarkable except in HPI and below Const: Denies: fever(s) ENMT: Denies: throat pain, nasal discharge, nasal congestion or post nasal drip Resp: Reports: productive cough and wheezing; Denies: dyspnea, non-productive cough, pain on inspiration, hemoptysis or chest congestion GI: Reports: abdominal pain, nausea and vomiting : Denies: flank pain or difficulty voiding Musc: Denies: neck pain or back pain Neuro: Denies: headache(s) or numbness in extremities Psych: Denies: anxiety All/Imm: Reports: seasonal rhinorrhea PFSH ED 2 PFSH: Medical History (Updated 08/08/25 @ 23:36 by BEVERLY Peters) Neutrophilia Nicotine dependence with current use Adhesive capsulitis of left shoulder Severe persistent asthma without complication elevated eosinophils Leukocytosis Synovitis of wrist Essential hypertension Diagnosed in February 2020 Surgical History Hx of hysterectomy Status post tubal ligation 2007--laparoscopic procedure Status post cholecystectomy 1999--laparoscopic procedure Family History Grandmother Breast cancer maternal, age at diagnosis unknown Denies family history of Colon cancer Ovarian cancer Diabetes Heart disease Hyperlipidemia Anesthesia complication Bleeding disorder Hypertension Uterine cancer Thyroid disease Stroke Social History Smoking and tobacco/nicotine status: current every day tobacco/nicotine user (1/2 ppd x 24 years) cigarettes Packs smoked per day: 1 Years cigarettes smoked: 27 [ Other cigarette details: started at age 16] Alcohol intake: current Alcohol intake frequency: holidays/special occasions only Substance/Drug Use: never Marital status: Number of children: 4 Number of grandchildren: 2 Current occupational status: employed Physical Exam 2 Const: COMMON NORMALS: no acute distress GENERAL APPEARANCE: cooperative; not ill appearing and not frail appearing HENMT: COMMON NORMALS: normocephalic, atraumatic and Normal external nose present HEAD & SCALP: normocephalic and atraumatic FACE & SINUS: normal facial exam and face symmetric NOSE: Normal external nose present Eye: COMMON NORMALS: Equal, round and reactive pupils present and EOMs intact bilaterally PUPIL: Yes Equal, round and reactive pupils present Neck/C-Spine: GENERAL: Yes trachea midline Chest: CHEST: Yes Symmetrical chest wall rise Resp: COMMON NORMALS: normal respiratory effort, No retractions, No use of accessory muscles and clear to auscultation bilaterally AUSCULTATION: clear to auscultation bilaterally Cardio: COMMON NORMALS: regular rate and regular rhythm RATE: regular rate RHYTHM: regular rhythm GI: COMMON NORMALS: Normal to inspection, nondistended, normoactive bowel sounds present PALPATION: Yes Tenderness to palpation present (GI) Details: RUQ and No Guarding due to palpation present (GI) : BLADDER/KIDNEY EXAM: Yes CVA tenderness on the right Back/Pelvis: GENERAL BACK: Yes CVA tenderness Extremity: COMMON NORMALS: no pedal edema Neuro: TIA COMA SCALE: document GCS findings [place] coma scale eye opening: Spontaneous Tia coma scale verbal response: Orientated [place] coma scale motor response: Obey commands Tia coma scale total score: 15 S ENSORY EXAM: Yes extremities (intact) Psych: COMMON NORMALS: speech normal SPEECH: Yes normal speech Skin: COMMON NORMALS: no rashes or lesions noted GENERAL SKIN EXAM: no rashes or lesions noted Course 2 Reevaluation(s): Reevaluation #1: Improvement noted. Vital Signs: Vital signs: Vital Signs Temperature 97.5 F L 08/08/25 20:50 Pulse Rate 66 08/08/25 23:49 Respiratory Rate 18 08/08/25 23:49 Blood Pressure 126/76 08/08/25 23:49 Pulse Oximetry 97 08/08/25 23:49 Oxygen Delivery Me thod Room Air 08/08/25 20:50 MDM - Nausea/Vomiting/Diarrhea Medical Decision Making Patient is 44-year-old female that presents back to the ED with nausea, and vomiting. She does have right upper quadrant pain. Nothing was found on CT of the abdomen pelvis yesterday. Laboratory data yesterday showed leukemoid reaction. A repeat laboratory data was done today. This appears as well leukemoid reaction. I suspect this is viral in nature, such as enteritis, gastroenteritis. Given there is no change in her abdominal pain, however she started having nausea, and vomiting today, no additional CT was obtained. I discussed this with patient, and she agrees as well. She does feel better after IV fluids, and Zofran. Urinalysis was initially ordered for repeat, however patient did not produce urine initially, and given the fact she was negative yesterday, there is no reason to make her way. She was discharged home without issues, and asked to return to the ED if she has continued symptoms. Lab Data I reviewed the patient's lab results. 08/08/25 22:49 08/08/25 22:49 Laboratory Results WBC 14.88 10^3/uL (3.29-11.43) H 08/08/25 22:49 RBC 4.62 10^6/uL (3.85-5.65) 08/08/25 22:49 Hgb 13.20 g/dL (11.27-16.99) 08/08/25 22:49 Hct 40.8 % (36-47) 08/08/25 22:49 MCV 88.3 fl (85-98) 08/08/25 22:49 MCH 28.6 pg (27-33) 08/08/25 22: MCHC 32.4 g/dL (30-55) 08/08/25 22:49 RDW 13.7 % (12.1-15.1) 08/08/25 22:49 Plt Count 223 10^3/cmm (157-399) 08/08/25 22:49 MPV 11.3 fL (7.4-10.4) H 08/08/25 22:49 Neut % (Auto) 72.0 % 08/08/25 22:49 Lymph % (Auto) 20.6 % 08/08/25 22:49 [place] % (Auto) 4.6 % 08/08/25 22:49 Eos % (Auto) 2.2 % 08/08/25 22:49 Baso % (Auto) 0.3 % 08/08/25:49 Neut # (Auto) 10.73 10^3/uL (1.8-7.7) H 08/08/25 22:49 Lymph # (Auto) 3.1 10^3/uL (0.8-4.8) 08/08/25 22:49 [place] # (Auto) 0.7 10^3/uL (0.2-0.9) 08/08/25 22:49 Eos # (Auto) 0.3 10^3/uL (0.0-0.8) 08/08/25 22:49 Baso # (Auto) 0.1 10^3/uL (0.0-0.1) 08/08/25 22:49 Nucleated RBC % (auto) 0 % 08/08/25 22:49 Nucleated RBCs # 0.0 /100WBC 08/08/25 22:49 Sodium 138 mmol/L (136-145) 08/08/25 22:49 Potassium 4.0 mmol/L (3.5-5.1) 08/08/25 22:49 Chloride 104 mmol/L (98-107) 08/08/25 22:49 Carbon Dioxide 24 mmol/L (22-29) 08/08/25 22:49 Anion Gap 14.0 (5-19) 08/08/25 22:49 BUN 8 mg/dL (6-20) 08/08/25 22:49 Creatinine 0.6 mg/dL (0.5-0.9) 08/08/25 22:49 GFR Calculation 108.6 mL/min (90-130) 08/08/25 22:49 Glucose 118 mg/dL (65-115) H 08/08/25 22:49 Calculated Osmolality 285 mOsm/kg (285-295) 08/08/25 22:49 Calcium 8.9 mg/dL (8.5-10.5) 08/08/25 22:49 Total Bilirubin 0.3 mg/dL (0.15-1.2) 08/08/25 22:49 AST 37 U/L (0-32) H 08/08/25 22:49 ALT 48 U/L (0-33) H 08/08/25 22:49 Alkaline Phosphatase 91 U/L (35-105) 08/08/25 22:49 Total Protein 7.2 g/dL (6.6-8.7) 08/08/25 22:49 Albumin 3.7 g/dL (3.5-5.2) 08/08/25 22:49 Globulin 3.5 g/dL (1.3-4.6) 08/08/25 22:49 Lipase 18 U/L (13-60) 08/08/25 22:49 No radiology studies performed this visit Discharge Plan Discharge Patient Disposition: Home Clinical Impression: Gastroenteritis Condition: Stable Prescriptions: New ondansetron 4 mg tablet,disintegrating 4 mg PO Q8H PRN (Reason: nausea and vomiting) 4 Days Qty: 14 0RF No Action (DME) left wrist splint See Rx Instructions .Route .MEDSUPPLY Qty: 1 0RF Rx Instructions: As directed budesonide-formoterol [Symbicort] 160-4.5 mcg/actuation HFA aerosol inhaler 2 puff inhalation BID Qty: 10.2 11RF Rx Instructions: 340B plan montelukast [Singulair] 10 mg tablet 10 mg PO DAILY Qty: 30 6RF (DME) nebulizer 0 .Route .MEDSUPPLY losartan 25 mg tablet 25 mg PO DAILY Qty: 30 1RF diclofenac sodium [Voltaren Arthritis Pain] 1 % gel 4 g topical QID PRN (Reason: joint pain) Rx Instructions: apply to single knee, ankle, foot; for foot includes sole/toes/top of foot Discharge Orders: Discharge ED (Routine); Ordered 08/08/25 Ordered By: Brianna Jones Referrals: Chidi Rivera NP [Primary Care Provider, Family Practice] Discharge Diet: Clear Liquid Patient Instructions: Gastroenteritis (ED), Patient Portal & Zoila Instructions Activity Restrictions/Additional Instructions: - Clear liquid diet only. - At the pharmacy: Zofran. Use as directed. Caution on overuse. Some of the side effects is constipation. Probiotic is a natural way to go on a regular basis - Your liver function waxes and wanes on slightly higher than out of range. Since your lipase is normal here, you may discuss with your doctor an outpatient test to further work up your liver - You are welcome to come back here if you have worsening symptoms as well. - Take good care of yourself. Do not advance your diet unless you feel completely better. Thank you for choosing [facility] for your healthcare needs today. You have been screened and evaluated and felt safe for discharge. Health conditions do change or evolve sometimes and as such it is important that you follow up with your Primary Doctor to be re checked, 3-5 days is a general good time frame for follow up. You are always welcome to return to the ED for re assessment if your symptoms are worsening or you have new concerns Print Language: Maori Coding Level of Care Code ED Technical Programs Manager for Machelle Larios
[2025-08-08] MEDS: ondansetron 2 mg/ML SDV 2 mL 4 MG IVP (22:45)
[2025-08-08 23:05] LABS: Hematocrit 40.8 % (36-47); Hemoglobin 13.20 g/dL (11.27-16.99); Mean Corpuscular HGB Conc 32.4 g/dL (30-55); Mean Corpuscular Hemoglobin 28.6 pg (27-33); Mean Corpuscular Volume 88.3 fl (85-98); Nucleated Red Blood Cells % 0 %; Platelet Count 223 10^3/cmm (157-399); Red Blood Count 4.62 10^6/uL (3.85-5.65); White Blood Count 14.88 10^3/uL (3.29-11.43)
[2025-08-08 23:11] LABS: Alanine Aminotransferase 48 U/L (0-33); Albumin Level 3.7 g/dL (3.5-5.2); Alkaline Phosphatase 91 U/L (35-105); Anion Gap 14.0 (5-19); Aspartate Amino Transferase 37 U/L (0-32); Blood Urea Nitrogen 8 mg/dL (6-20); Calcium 8.9 mg/dL (8.5-10.5); Carbon Dioxide 24 mmol/L (22-29); Chloride 104 mmol/L (98-107); Globulin 3.5 g/dL (1.3-4.6); Glucose 118 mg/dL (65-115); Lipase 18 U/L (13-60); Osmolality Calculated 285 mOsm/kg (285-295); Potassium 4.0 mmol/L (3.5-5.1); Sodium 138 mmol/L (136-145); Total Protein 7.2 g/dL (6.6-8.7)
== END 2025-08-08 23:51 | disposition home or self-care (01) ==
PROVIDERS: Emergency Provider Physician Assistant; PCP Clinical Nurse Specialist Adult Health
DX: K52.9 Noninfective gastroenteritis and colitis, unspecified (principal); F17.210 Nicotine dependence, cigarettes, uncomplicated; I10 Essential (primary) hypertension
CPT/HCPCS: 36415; 80053; 83690; 85025; 96361; 96374; 99284; J2405; J7120